=== PATIENT | female | born 1970 | race Caucasian/White ===

== ENCOUNTER 2019-05-13 12:27 | Inpatient (IN) | payer BC, SELFPAY ==
[2019-05-13] VITALS (22 sets, daily range): BP systolic 100–137; BP diastolic 47–70; PULSE 80–100; RESP 14–20; TEMP 36.2–37.2; O2SAT 98–100
--- NOTE | ~2019-05-13 | XR_ITS ---
XR chest 1V portable DATE: 05/13/2019 14:12 INDICATION: Shortness of breath TECHNIQUE: Portable upright AP chest on 05/13/2019 at 1413 hours COMPARISON: 03/17/2017 two-view chest FINDINGS: Borderline or mild cardiomegaly is suggested. There is a hiatal hernia with air-fluid level . No pulmonary infiltrate or consolidation, pleural effusion or pulmonary vascular congestion or pneumo thorax. IMPRESSION: Borderline or mild cardiac megaly Hiatal hernia No active pulmonary disease Reviewed, dictated and finalized at location A. COUNSELOR
--- NOTE | 2019-05-13 12:38 | ED.RECABL ---
HPI - Recheck/Abnormal Lab/Rx General Chief Complaint: Recheck/Abnormal Lab/Rx Stated Complaint: sent by doctor for an iron shot Time Seen by Provider: 05/13/19 12:38 Source: patient Mode of arrival: ambulatory Limitations: no limitations History of Present Illness HPI narrative: A 48 y/o female presents to the ED with c/o low iron levels. Pt states she has been experiencing generalized weakness and SOB for 1 week. Pt originally thought that her symptoms were due to her PMHx of asthma but notes that she did not have a cough or wheeze. Pt went to see her PCP yesterday and was told that she was anemic with an iron count of 15. Pt was advised to get an iron shot . Pt notes that her periods are normally light. She denies CP, blood in her stool, N/V, ABD pain, BLE edema, a PMHx of heart problems, and a PSHx. Description of abnormal result: low iron levels Associated symptoms: shortness of breath and other (generalized weakness) Related Data Home Medications Medication Instructions Recorded Confirmed albuterol sulfate [ProAir HFA] 1 inh INHALATION QID PRN 05/13/19 05/13/19 fluoxetine [Prozac] 40 mg PO DAILY 05/13/19 05/13/19 Allergies Allergy/AdvReac Type Severity Reaction Status Date / Time albuterol Allergy Mild Hives / Verified 05/24/18 19:03 Red Face Review of Systems Review of Systems: All systems reviewed & are unremarkable except as noted in HPI and below Constitutional: Constitutional: Reports weakness (generalized) Comments: Reports: low iron levels Cardiovascular: Cardiovascular: Denies chest pain Respiratory: Respiratory: Denies cough, Reports dyspnea and Denies wheezing Gastrointestinal: Gastrointestinal: Denies abdominal pain, Denies nausea and Denies vomiting Comments: Denies: blood in stool Musculoskeletal: Comments: Denies: BLE edema PMFSH Past Medical History Medical History (Updated 05/13/19 @ 15:37 by Kristina Prakash PA-C) Asthma Bipolar disorder Depression GERD (gastroesophageal reflux disease) Family History Family History (Updated 05/13/19 @ 16:11 by Sunitha Frances RN) Mother High cholesterol Social History Social History (Updated 05/13/19 @ 15:32 by Kristina Prakash PA-C) Social History: The patient is lives with her in [place]. She designates her , Ankit, as her surrogate decision maker and she wishes to be a full code. She is a lifelong nonsmoker and denies alcohol and drug abuse. Smoking status: Never smoker Alcohol intake: never Substance use: never Substance use type: does not use Gender identity (if verbalized by the patient): Female Spiritual care concerns: No Agree to blood products: Yes Comments PCP: Dr. Montejo Exam Narrative: Exam Narrative: GENERAL: Well-appearing, well-nourished, and in no acute distress. HEAD: Normocephalic, atraumatic EYES: PERRLA and EOMI, THROAT:Mucous membranes moist, Oropharynx normal without erythema, exudate, peritonsillar swelling or fluctuance NECK: Supple, without lymphadenopathy or mass RESPIRATORY: No respiratory distress, Airway patent, Respirations non-labored, Clear to auscultation without rales, rhonchi or wheeze HEART: Regular rate and rhythm. No murmur heard. Normal peripheral pulses. ABDOMEN: Soft, nontender, nondistended, normal active bowel sounds. No masses. No rebound or guarding, No organomegaly. EXTREMITIES: No edema, normal strength with full range of motion. SKIN: Warm, dry, pale skin NEURO: Alert and oriented x3. CN 2-12 grossly intact. No focal deficits. PSYCH: Normal mood and affect. GI: Rectal Exam: heme positive stool (brown stool) and No External hemorrhoid(s) present Course Reevaluation(s) Reevaluation #1: I have discussed with patient that she will need to be admitted with hemoglobin of 3.9 . She denies history of anemia. On review of her records in 2018 her hemoglobin was 7.2. Date: 05/13/19 Time: 14:23 Consultations Consultation #1:
--- NOTE | 2019-05-13 12:46 | ECG_ITS ---
Measurements Intervals [place] Rate: 109 P: 9 [place]: 147 QRS: -11 QRSD: 90 T: 61 QT: 345 QTc: 465 Interpretive Statements SINUS TACHYCARDIA DELAYED PRECORDIAL R/S TRANSITION VOLTAGE CRITERIA FOR LVH BORDERLINE ST-T WAVE ABNORMALITY- DIFFUSE LEADS BASELINE ARTIFACT- I, II, III, AVR, AVL, AVF, V1 ABNORMAL ECG Electronically Signed On 05-13-2019 13:40:40 [employer] by Chaitanya Son D.O.
[2019-05-13 13:19] LABS: Basophils Percent Auto 0.5 % (0.2-1.2); Eosinophils Absolute Auto 0.1 K/mm3 (0-0.3); Eosinophils Percent Auto 1.5 % (0-4.4); Immature Granulocyte Absolute 0.03 K/mm3 (0.00-0.031); Immature Granulocyte Percent A 0.5 % (0-0.5); Lymphocytes Absolute Auto 1.44 K/mm3 (0.9-3.2); Lymphocytes Percent Auto 24.5 % (18.3-44.2); Mean Corpuscular HGB Conc 24.1 g/dl (32-36); Mean Corpuscular Hemoglobin 14.4 pg (26-34); Mean Platelet Volume 9.5 fl (7.4-10.4); Monocytes Absolute Auto 0.4 K/mm3 (0.1-0.6); Neutrophils Absolute Auto 3.9 K/mm3 (1.3-6.7); Platelet Count Result 846 k/mm3 (150-375); Red Cell Distribution Width 22.5 % (11.5-14.5); White Blood Count 5.9 K/mm3 (4.5-10.0)
[2019-05-13 13:25] LABS: Hematocrit 16.2 % (37.0-47.0); Hemoglobin 3.9 g/dL (12.0-15.0); Platelet Estimate Increased (Adequate)
[2019-05-13 13:26] LABS: Hypochromasia 3+ (NORMAL); Ovalocytes 2+ (NORMAL); Poikilocytosis 2+ (NORMAL); Stomatocytes 2+ (NORMAL)
[2019-05-13 13:32] LABS: Alanine Aminotransferase 9 U/L (4-35); Albumin Level 3.8 g/dL (3.5-5.1); Alkaline Phosphatase 65 U/L (38-126); Aspartate Amino Transferase 13 U/L (14-36); Bilirubin,Total 0.4 mg/dL (0.2-1.3); Blood Urea Nitrogen 13 mg/dL (7-17); Calcium 8.7 mg/dL (8.4-10.2); Carbon Dioxide 25 mmol/L (22-30); Chloride 99 mmol/L (98-107); Estimated CRCL calculation 126 ml/min; Estimated Glomerular Filt Rate > 60; Glucose 135 mg/dL (65-105); Potassium 3.3 mmol/L (3.4-5.0); Sodium 136 mmol/L (137-145)
[2019-05-13 13:33] LABS: D Dimer 0.38 ug/mL (<0.48)
[2019-05-13 13:43] LABS: Iron < 10 ug/dL (37-170)
[2019-05-13 13:44] LABS: NT Pro B Type Natriuretic Pept 331 PG/ML (5-100); Troponin I < 0.012 ng/mL (0.000-0.034)
[2019-05-13 13:54] LABS: Prothrombin Time 13.2 Seconds (11.1-14.7)
[2019-05-13 14:21] LABS: Ferritin 2.79 ng/mL (6.24-137)
[2019-05-13] MEDS: SODIUM CHLORIDE 0.9% IV 250 ML 30 ML IV CONT (14:44)
[2019-05-13 14:49] LABS: Folic Acid 7.3 ng/mL (2.76->20)
[2019-05-13] MEDS: BISACODYL 5 MG TABLET EC 20 MG PO (15:16)
--- NOTE | 2019-05-13 15:30 | PM.IMHP ---
H&P: HPI History of Present Illness Chief complaint: Low iron levels. Narrative: Evelina Acevedo is a 48 year old female with asthma, GERD, and bipolar disorder who presented to the emergency department earlier this afternoon at the direction of her primary care provider for further treatment and evaluation of ?low iron levels.? 1 week ago she was walking from a parking lot to the theater and noticed that she was unusually short of breath. Initially she thought perhaps her asthma was acting up. Since that time she has been progressively more short of breath with increasing for due to and generalized weakness. She has also had some lightheadedness and nausea. She was seen by her primary care provider yesterday, was told she was anemic, and was referred to the emergency department. Hemoglobin and hematocrit were 3.9 and 16.2 respectively. With further questioning, she was told that she was anemic about a year and half ago and was prescribed iron. It caused her stomach to be upset, and she was supposed to then be taking flintstone vitamins with iron but she has not done so. She has not noticed any change in stools and specifically denies melena and hematochezia. No gingival bleeding or epistaxis. She does suffer from GERD, but has not noticed a change in her symptomatology. She admits to drinking quite a bit of Mountain Dew each day. She also takes ibuprofen, 400 milligrams 1 time a day for headaches. No alcohol use. she is not being in our vegetarian, but did stop eating red meat 1 year ago. Review of Systems Review of Systems: Narrative: Twelve systems were reviewed with pertinent positives and negatives as per HPI. No fever, chills, or sweats. No cold or flu symptoms. No chest pain or racing heart. She has had a mild cough. No significant problems with her asthma, however. No vomiting. Except as documented, all other systems were reviewed and are negative. [facility] Past Medical History Medical History (Updated 05/13/19 @ 23:54 by Kristina Prakash PA-C) Asthma Bipolar disorder Depression GERD (gastroesophageal reflux disease) Surgical History Surgical History (Updated 05/13/19 @ 23:30 by Kristina Prakash PA-C) No history of previous surgery Family History Family History Mother High cholesterol Social History Social History (Updated 05/13/19 @ 15:32 by Kristina Prakash PA-C) Social History: The patient is lives with her in [place]. She designates her , Ankit, as her surrogate decision maker and she wishes to be a full code. She is a lifelong nonsmoker and denies alcohol and drug abuse. Smoking status: Never smoker Alcohol intake: never Substance use: never Substance use type: does not use Gender identity (if verbalized by the patient): Female Spiritual care concerns: No Agree to blood products: Yes Meds Home Medications and Allergies Home Medications Medication Instructions Recorded Confirmed Type albuterol sulfate [ProAir HFA] 1 inh INHALATION QID PRN 05/13/19 05/13/19 History fluoxetine [Prozac] 40 mg PO DAILY 05/13/19 05/13/19 History Allergies Allergy/AdvReac Type Severity Reaction Status Date / Time albuterol Allergy Mild Hives / Verified 05/24/18 19:03 Red Face Vital Signs Vital Signs - 24 hr 05/13/19 12:30 05/13/19 12:54 05/13/19 13:37 Temperature 97.3 F L Pulse Rate 100 90 92 Respiratory Rate 16 20 Blood Pressure 137/56 L 104/58 L 109/56 L Pulse Oximetry 100 100 05/13/19 14:15 05/13/19 14:44 05/13/19 14:48 Temperature 97.4 F L Pulse Rate 92 82 86 Respiratory Rate 20 18 17 Blood Pressure 100/64 100/64 Pulse Oximetry 100 100 98 05/13/19 14:59 05/13/19 15:10 Temperature 97.1 F L Pulse Rate 97 86 Respiratory Rate 20 19 Blood Pressure 106/63 103/66 Pulse Oximetry 100 100 Exam Narrative: Exam Narrative: General: A well-developed, well
--- NOTE | 2019-05-13 15:57 | ADMGEN ---
This patient, Evelina Acevedo, was admitted to Medical Room 348-01. Patient/family oriented to hospital policies and general routines including ID bracelet, bed and alarms, visiting hours, pain management, procedures, bathroom and other care routines, personal items, smoking policy, room service/diet, and visiting hours. Valuables list has been completed. Information on how to activate the Rapid Response Team has been discussed. Patient/Family are encouraged to report perceived risks to care and to ask questions if they do not understand what they are told or what they should do. 1530 Received from ER via stretcher.Family at bedside.
[2019-05-13] MEDS: PEG (High)/E-LYTE SOLN 4,000 ML BTL 4000 ML PO (16:53)
[2019-05-13] MEDS: TUBING, BLOOD PLUM PUMP TUBING 1 EACH XX (18:00)
[2019-05-13] MEDS: SODIUM CHLORIDE 0.9% IV 250 ML 30 ML (18:00)
[2019-05-13] MEDS: ONDANSETRON INJ 4 MG/2 ML VIAL IV PUSH (21:39)
[2019-05-13] MEDS: PANTOPRAZOLE SODIUM IV 40 MG VIAL IV PUSH (21:58)
[2019-05-14] VITALS (21 sets, daily range): BP systolic 95–134; BP diastolic 42–65; PULSE 69–87; RESP 13–25; TEMP 36.3–36.9; O2SAT 94–100
[2019-05-14] MEDS: ONDANSETRON INJ 4 MG/2 ML VIAL IV PUSH ×2 (01:39→09:30)
[2019-05-14 06:29] LABS: Basophils Percent Auto 0.4 % (0.2-1.2); Eosinophils Percent Auto 0.3 % (0-4.4); Hematocrit 27.3 % (37.0-47.0); Immature Granulocyte Absolute 0.04 K/mm3 (0.00-0.031); Immature Granulocyte Percent A 0.4 % (0-0.5); Lymphocytes Absolute Auto 1.75 K/mm3 (0.9-3.2); Lymphocytes Percent Auto 18.9 % (18.3-44.2); Mean Corpuscular HGB Conc 29.3 g/dl (32-36); Mean Corpuscular Hemoglobin 20.4 pg (26-34); Mean Corpuscular Volume 69.6 fl (80-100); Mean Platelet Volume 9.8 fl (7.4-10.4); Monocytes Absolute Auto 0.6 K/mm3 (0.1-0.6); Monocytes Percent Auto 6.4 % (2.6-8.5); Neutrophils Absolute Auto 6.8 K/mm3 (1.3-6.7); Neutrophils Percent Auto 73.6 % (45.5-73.1); Platelet Count Result 731 k/mm3 (150-375); Red Blood Count 3.92 M/mm3 (4.2-5.4); Red Cell Distribution Width 27.8 % (11.5-14.5); White Blood Count 9.3 K/mm3 (4.5-10.0)
[2019-05-14 06:45] LABS: Alanine Aminotransferase 8 U/L (4-35); Albumin Level 3.9 g/dL (3.5-5.1); Alkaline Phosphatase 67 U/L (38-126); Aspartate Amino Transferase 13 U/L (14-36); Bilirubin,Total 1.2 mg/dL (0.2-1.3); Blood Urea Nitrogen 9 mg/dL (7-17); Calcium 8.9 mg/dL (8.4-10.2); Carbon Dioxide 26 mmol/L (22-30); Chloride 101 mmol/L (98-107); Estimated CRCL calculation 107 ml/min; Estimated Glomerular Filt Rate > 60; Glucose 96 mg/dL (65-105); Potassium 3.3 mmol/L (3.4-5.0); Sodium 137 mmol/L (137-145)
[2019-05-14 07:16] LABS: Platelet Estimate Increased (Adequate)
[2019-05-14 07:17] LABS: Hypochromasia 2+ (NORMAL); Ovalocytes 2+ (NORMAL); Poikilocytosis 2+ (NORMAL)
[2019-05-14] MEDS: FOLIC ACID 1 MG/0.2 ML INJ IV PUSH (09:12)
[2019-05-14] MEDS: CYANOCOBALAMIN INJ 1,000 MCG/ML VIAL 1000 MCG IM (09:12)
[2019-05-14] MEDS: PANTOPRAZOLE SODIUM IV 40 MG VIAL IV PUSH ×2 (09:13→20:59)
[2019-05-14] MEDS: FLUOXETINE HCL 20 MG CAP 40 MG PO (09:13)
--- NOTE | 2019-05-14 09:55 | WPDGICN ---
Assessment and Plan Assessment and plan (1) Iron deficiency anemia: Qualifiers: Iron deficiency anemia type: unspecified iron deficiency Qualified Code(s): D50.9 - Iron deficiency anemia, unspecified Code(s): D50.9 - Iron deficiency anemia, unspecified Status: Acute Assessment and Plan: will proceed with egd and colonoscopy to assess if gi loss. (2) Profound anemia: Qualifiers: Anemia type: iron deficiency Iron deficiency anemia type: other iron deficiency Qualified Code(s): D50.8 - Other iron deficiency anemias Code(s): D64.9 - Anemia, unspecified Status: Acute Assessment and Plan: she already got blood transfusion, continue to monitor (3) Stool guaiac positive: Code(s): R19.5 - Other fecal abnormalities Status: Acute (4) Asthma: Qualifiers: Asthma complication type: uncomplicated Asthma persistence: unspecified Asthma severity: unspecified severity Qualified Code(s): J45.909 - Unspecified asthma, uncomplicated Code(s): J45.909 - Unspecified asthma, uncomplicated Status: Acute (5) Thrombocytosis: Code(s): D47.3 - Essential (hemorrhagic) thrombocythemia Status: Acute GI Consult Note Consult date/time: 05/14/19 09:55 reason for consult: iron deficiency anemia with + FOBT HPI: Evelina Acevedo is a 48 year old female with history of asthma, GERD, and bipolar disorder who presented to the emergency department because symptomatic anemia with more fatigue, progressive shortness of breath on exertion for several weeks. Her PCP found her to be severely anemic with Hemoglobin and hematocrit 3.9 and 16.2 respectively. She was told that was anemic about 1 year ago and supposed to be on iron/vitamins. Never had scopes, denies overt-GIB, heavy cycles. Occasionally will use ibuprofen only as needed if headaches. No weight loss, no family history of colon cancer. She received 4 units of PRBC and completed bowel prep last night. Review of Systems Constitutional: Constitutional: Reports fatigue and Reports lethargy Eyes: Eyes: Denies blurry vision ENT: Reports Normal hearing present, Denies headache(s) and Denies neck pain Cardiovascular: Cardiovascular: Denies chest pain and Denies dyspnea Respiratory: Respiratory: Denies dyspnea Gastrointestinal: Gastrointestinal: Reports no additional gastrointestinal complaints Genitourinary: Genitourinary: Denies dysuria Musculoskeletal: Musculoskeletal: Denies neck pain Integumentary/Breasts: Skin/Breast: Denies dry skin Neurologic: Reports Normal hearing present, Denies headache(s) and Denies weakness Psychiatric: Psychiatric: Denies anxiety Endocrine: Endocrine: Denies change in body appearance Hematologic/Lymphatic: Hematologic/Lymphatic: Denies easy bleeding Allergic/Immunologic: Allergic/Immunologic: Denies urticaria PMFSH Past Medical History Medical History (Updated 05/14/19 @ 10:00 by Haile Pandey MD) Asthma Bipolar disorder Depression GERD (gastroesophageal reflux disease) Iron deficiency anemia Surgical History Surgical History (Updated 05/13/19 @ 23:30 by Kristina Prakash PA-C) No history of previous surgery Family History Family History Mother High cholesterol Social History Social History (Updated 05/13/19 @ 15:32 by Kristina Prakash PA-C) Social History: The patient is lives with her in [place]. She designates her , Ankit, as her surrogate decision maker and she wishes to be a full code. She is a lifelong nonsmoker and denies alcohol and drug abuse. Smoking status: Never smoker Alcohol intake: never Substance use: never Substance use type: does not use Gender identity (if verbalized by the patient): Female Spiritual care concerns: No Agree to blood products: Yes Meds Home Medications and Allergies
[2019-05-14] MEDS: KCL 40 MEQ/0.9% SOD CHL 1,000 ML 125 ML IV CONT ×2 (11:01→23:02)
[2019-05-14 12:11] LABS: Hematocrit 25.9 % (37.0-47.0); Hemoglobin 7.5 g/dL (12.0-15.0)
[2019-05-14 12:24] LABS: Blood Urea Nitrogen 9 mg/dL (7-17); Calcium 8.6 mg/dL (8.4-10.2); Carbon Dioxide 24 mmol/L (22-30); Chloride 102 mmol/L (98-107); Estimated CRCL calculation 126 ml/min; Estimated Glomerular Filt Rate > 60; Glucose 99 mg/dL (65-105); Potassium 3.5 mmol/L (3.4-5.0); Sodium 135 mmol/L (137-145)
--- NOTE | 2019-05-14 13:14 | PM.IMPN ---
Progress Note: A&P Assessment and Plan (1) Profound anemia: Qualifiers: Anemia type: iron deficiency Iron deficiency anemia type: other iron deficiency Qualified Code(s): D50.8 - Other iron deficiency anemias Code(s): D64.9 - Anemia, unspecified Status: Acute Assessment and Plan: Chronic is evidence by tolerance of hemoglobin 3.9, microcytosis, and thrombocytosis. With heme-positive stools most likely she has chronic blood loss Her menstrual periods are very light so this is likely contributing minimally EGD and colonoscopy later today Monitor hemoglobin hematocrit (2) Thrombocytosis: Code(s): D47.3 - Essential (hemorrhagic) thrombocythemia Status: Acute Assessment and Plan: Most likely reactive thrombocytosis from significant iron deficiency. (3) Hypokalemia: Code(s): E87.6 - Hypokalemia Status: Acute Assessment and Plan: 05/14 3.5 (4) Asthma: Qualifiers: Asthma severity: unspecified severity Asthma persistence: unspecified Asthma complication type: uncomplicated Qualified Code(s): J45.909 - Unspecified asthma, uncomplicated Code(s): J45.909 - Unspecified asthma, uncomplicated Status: Acute Assessment and Plan: No acute issues. (5) B12 deficiency: Code(s): E53.8 - Deficiency of other specified B group vitamins Status: Acute Assessment and Plan: 05/14 cyanocobalamin 1000 micro g IM x1 given 05/14 folic acid 1 mg IV x1 given (6) Iron deficiency anemia: Qualifiers: Iron deficiency anemia type: unspecified iron deficiency Qualified Code(s): D50.9 - Iron deficiency anemia, unspecified Code(s): D50.9 - Iron deficiency anemia, unspecified Status: Acute Assessment and Plan: Likely due to chronic blood loss from gastrointestinal tract and from menses Given her B12 deficiency, iron malabsorption may also be contributing 05/13 4 units packed red cells given 05/14 300 mg IV iron sucrose given Subjective Date/time seen: 05/14/19 13:14 Interval history: Admitted May 13 with fatigue and dyspnea. Found to be profoundly anemic with hemoglobin 3.9. She tolerated 4 units of packed red cells overnight. No chest pain no dyspnea. No edema. No nausea or vomiting. No abdominal pain. No GI or changes. No fevers or chills. No itching or rash. Review of Systems Review of Systems: All systems reviewed & are unremarkable except as noted in HPI and below Exam Narrative: Exam Narrative: HEENT: EOMI, PERRL, pharyngeal mucosa pink and intact NECK: No JVD CHEST: Clear to auscultation. Normal effort. HEART: NL S1/S2, regular, no murmur ABDOMEN: BS+, soft, nontender, no mass, no bruits EXTREMITIES: No cyanosis, edema, or clubbing NEUROLOGIC: CN intact and symmetric to inspection. MUSCULOSKELETAL: Tone and strength symmetric. PSYCH: Alert. Oriented to person, place, and time. And Objective Data Vital Signs Vital Signs: Vital Signs - 24 hr 05/13/19 13:37 05/13/19 14:15 05/13/19 14:44 Temperature 97.4 F L Pulse Rate 92 92 82 Respiratory Rate 20 20 18 Blood Pressure 109/56 L 100/64 Pulse Oximetry 100 100 100 05/13/19 14:48 05/13/19 14:59 05/13/19 15:10 Temperature 97.1 F L Pulse Rate 86 97 86 Respiratory Rate 17 20 19 Blood Pressure 100/64 106/63 103/66 Pulse Oximetry 98 100 100 05/13/19 15:46 05/13/19 15:59 05/13/19 16:00 Temperature 98.2 F Pulse Rate 89 92 93 Respiratory Rate 16 Blood Pressure 105/58 L Pulse Oximetry 100 05/13/19 16:18 05/13/19 16:30 05/13/19 18:00 Temperature 98.2 F 98.9 F Pulse Rate 93 92 96 Respiratory Rate 18 16 16 Blood Pressure 105/58 L 121/57 L Pulse Oximetry 100 100 99 05/13/19 18:15 05/13/19 19:15 05/13/19 20:00 Temperature 98.9 F 98.7 F Pulse Rate 93 95 86 Respiratory Rate 16 16 Blood Pressure 101/51 L 104/60 Pulse Oximetry 99 100 05/13/19 20:15 04/19
[2019-05-14] MEDS: LACTATED RINGERS 1,000 ML 150 ML IV CONT (14:20)
--- NOTE | 2019-05-14 14:20 | PC.NURSE ---
Patient to GI lab per stretcher.
--- NOTE | 2019-05-14 14:26 | WPDANESEPPF ---
Anes - Initial Pre Proc Eval Procedure: Operation Date: 05/14/19 15:00 Proposed Procedures p Esophagogastroduodenoscopy & Colonoscopy - Haile Pandey MD Date/Time: 05/14/19 14:26 Surgeon: Bi Helton MD Pre Op Diagnosis: Low iron levels. Patient Data Age: 48 Gender: F Height: 5 ft 3 in Weight: 91.6 kg Last Vital Signs Temp 36.9 C 05/14/19 14:16 Pulse 87 05/14/19 14:15 Resp 13 05/14/19 14:16 BP 119/50 L 05/14/19 14:16 Pulse Ox 96 05/14/19 14:16 Allergies Allergy/AdvReac Type Severity Reaction Status Date / Time albuterol Allergy Mild Hives / Verified 05/24/18 19:03 Red Face Home Medications Medication Instructions Recorded Confirmed Type albuterol sulfate [ProAir HFA] 1 inh INHALATION QID PRN 05/13/19 05/13/19 History fluoxetine [Prozac] 40 mg PO DAILY 05/13/19 05/13/19 History Laboratory Tests 05/13/19 05/13/19 05/14/19 12:52 12:54 05:42 WBC 9.3 K/mm3 K/mm3 (4.5-10.0) RBC 3.92 M/mm3 L M/mm3 (4.2-5.4) Hgb 8.0 g/dL L D g/dL (12.0-15.0) Hct 27.3 % L % (37.0-47.0) MCV 69.6 fl L D fl (80-100) MCH 20.4 pg L D pg (26-34) MCHC 29.3 g/dl L g/dl (32-36) RDW 27.8 % H % (11.5-14.5) Plt Count 731 k/mm3 H k/mm3 (150-375) MPV 9.8 fl fl (7.4-10.4) Immature Gran % (Auto) 0.4 % % (0-0.5) Neut % (Auto) 73.6 % H % (45.5-73.1) Lymph % (Auto) 18.9 % % (18.3-44.2) [place] % (Auto) 6.4 % % (2.6-8.5) Eos % (Auto) 0.3 % % (0-4.4) Baso % (Auto) 0.4 % % (0.2-1.2) Lymph # (Auto) 1.75 K/mm3 K/mm3 (0.9-3.2) [place] # (Auto) 0.6 K/mm3 K/mm3 (0.1-0.6) Eos # (Auto) 0.0 K/mm3 K/mm3 (0-0.3) Baso # (Auto) 0.0 K/mm3 K/mm3 (0.0-0.1) Abs Immat Gran (auto) 0.04 K/mm3 H K/mm3 (0.00-0.031) Absolute Neuts (auto) 6.8 K/mm3 H K/mm3 (1.3-6.7) Absolute Nucleated RBC 0.0 K/mm3 K/mm3 (0.0-0.012) Nucleated RBC % 0.0 % % (0.0-0.2) Platelet Estimate Increased (Adequate) Hypochromasia 2+ (NORMAL) Poikilocytosis 2+ (NORMAL) Ovalocytes 2+ (NORMAL) Sodium Potassium Chloride Carbon Dioxide BUN Creatinine Estim Creat Clear Calc Estimated GFR Glucose Calcium Total Bilirubin AST ALT Alkaline Phosphatase Total Protein Albumin Vitamin B12 234.0 pg/mL L pg/mL (239-931) Folate 7.3 ng/mL ng/mL (2.76->20) Blood Type A Positive Antibody Screen Negative Crossmatch See Detail 05/14/19 05/14/19 05/14/19 05:42 11:51 11:51 WBC RBC Hgb 7.5 g/dL L g/dL (12.0-15.0) Hct 25.9 % L % (37.0-47.0) MCV MCH MCHC RDW Plt Count MPV Immature Gran % (Auto) Neut % (Auto) Lymph % (Auto) [place] % (Auto) Eos % (Auto) Baso % (Auto) Lymph # (Auto) [place] # (Auto) Eos # (Auto) Baso # (Auto) Abs Immat Gran (auto) Absolute Neuts (auto) Absolute Nucleated RBC Nucleated RBC % Platelet Estimate Hypochromasia Poikilocytosis Ovalocytes Sodium 137 mmol/L mmol/L 135 mmol/L L mmol/L (137-145) (137-145) Potassium 3.3 mmol/L L mmol/L 3.5 mmol/L mmol/L (3.4-5.0) (3.4-5.0) Chloride 101 mmol/L mmol/L 102 mmol/L mmol/L (98-107) (98-107) Carbon Dioxide 26 mmol/L mmol/L 24 mmol/L mmol/L (22-30)
--- NOTE | 2019-05-14 15:41 | PC.NURSE ---
Patient returned from GI lab per stretcher. Family at bedside.
[2019-05-14 17:57] LABS: Hematocrit 27.6 % (37.0-47.0); Hemoglobin 7.9 g/dL (12.0-15.0)
[2019-05-14 18:12] LABS: Blood Urea Nitrogen 9 mg/dL (7-17); Calcium 8.7 mg/dL (8.4-10.2); Carbon Dioxide 24 mmol/L (22-30); Chloride 101 mmol/L (98-107); Estimated CRCL calculation 107 ml/min; Estimated Glomerular Filt Rate > 60; Glucose 142 mg/dL (65-105); Potassium 3.4 mmol/L (3.4-5.0); Sodium 136 mmol/L (137-145)
[2019-05-15] VITALS: PULSE 81
[2019-05-15 04:00] VITALS: PULSE 79
[2019-05-15 04:27] VITALS: BP 117/46; PULSE 76; RESP 12; TEMP 36.3; O2SAT 94
[2019-05-15 06:10] LABS: Hemoglobin 7.1 g/dL (12.0-15.0); Mean Corpuscular HGB Conc 28.4 g/dl (32-36); Mean Corpuscular Hemoglobin 20.1 pg (26-34); Mean Corpuscular Volume 70.6 fl (80-100); Mean Platelet Volume 9.7 fl (7.4-10.4); Platelet Count Result 576 k/mm3 (150-375); Red Blood Count 3.54 M/mm3 (4.2-5.4); Red Cell Distribution Width 27.9 % (11.5-14.5); White Blood Count 8.5 K/mm3 (4.5-10.0)
[2019-05-15 06:14] LABS: Blood Urea Nitrogen 11 mg/dL (7-17); Calcium 8.3 mg/dL (8.4-10.2); Carbon Dioxide 24 mmol/L (22-30); Chloride 108 mmol/L (98-107); Estimated CRCL calculation 107 ml/min; Estimated Glomerular Filt Rate > 60; Glucose 91 mg/dL (65-105); Sodium 139 mmol/L (137-145)
[2019-05-15] MEDS: KCL 40 MEQ/0.9% SOD CHL 1,000 ML 125 ML IV CONT (07:09)
[2019-05-15 08:00] VITALS: PULSE 71; O2SAT 94
[2019-05-15] MEDS: FLUOXETINE HCL 20 MG CAP 40 MG PO (08:59)
[2019-05-15] MEDS: PANTOPRAZOLE SODIUM IV 40 MG VIAL IV PUSH (09:00)
[2019-05-15 09:38] LABS: Percent Iron Saturation < 2 % (20-50)
[2019-05-15 12:00] VITALS: PULSE 82
[2019-05-15 14:16] VITALS: BP 123/71; PULSE 79; RESP 18; TEMP 36.7; O2SAT 96
--- NOTE | 2019-05-15 18:27 | PM.DS ---
DS: Diagnosis Admitting Diagnosis Admitting Diagnosis: Anemia, unspecified Discharge Diagnosis (1) Profound anemia: Qualifiers: Anemia type: iron deficiency Iron deficiency anemia type: other iron deficiency Qualified Code(s): D50.8 - Other iron deficiency anemias Code(s): D64.9 - Anemia, unspecified Status: Acute Assessment and Plan: Chronic is evidence by tolerance of hemoglobin 3.9, microcytosis, and thrombocytosis. With heme-positive stools most likely she has chronic blood loss Her menstrual periods are very light so this is likely contributing minimally EGD and colonoscopy revealed only gastritis with no active bleeding, will discharge on PPI Monitor hemoglobin hematocrit (2) Thrombocytosis: Code(s): D47.3 - Essential (hemorrhagic) thrombocythemia Status: Acute Assessment and Plan: Most likely reactive thrombocytosis from significant iron deficiency. (3) Hypokalemia: Code(s): E87.6 - Hypokalemia Status: Acute Assessment and Plan: 05/14 3.5 05/15 4.0 (4) Asthma: Qualifiers: Asthma severity: unspecified severity Asthma persistence: unspecified Asthma complication type: uncomplicated Qualified Code(s): J45.909 - Unspecified asthma, uncomplicated Code(s): J45.909 - Unspecified asthma, uncomplicated Status: Acute Assessment and Plan: No acute issues. (5) B12 deficiency: Code(s): E53.8 - Deficiency of other specified B group vitamins Status: Acute Assessment and Plan: 05/14 cyanocobalamin 1000 micro g IM x1 given 05/14 folic acid 1 mg IV x1 given (6) Iron deficiency anemia: Qualifiers: Iron deficiency anemia type: unspecified iron deficiency Qualified Code(s): D50.9 - Iron deficiency anemia, unspecified Code(s): D50.9 - Iron deficiency anemia, unspecified Status: Acute Assessment and Plan: Likely due to chronic blood loss from gastrointestinal tract and from menses Given her B12 deficiency, iron malabsorption may also be contributing(results to what no biopsy pending and discharge) 05/13 4 units packed red cells given 05/14 300 mg IV iron sucrose given 05/15 300 mg IV again for a total of 600 mg DS: Summary Hospital Course Hospital Course: 48-year-old white female admitted with profound anemia. Found to be iron deficiency but EGD and colonoscopy revealed only gastritis. Transfuse 4 units of packed cells and discharged with a hemoglobin 7.1 to have CBC drawn in 6 days. Received IV iron 600 mg while here as well as B12 1000 micro g IM Will be discharged on PPI Protonix 40 b.i.d. Time Spent with Patient Time attestation: Total time spent providing and/or coordinating discharge services: 35 minutes Exam Narrative: Exam Narrative: Condition on discharge: Blood pressure 124/72 pulse is 80 Lungs clear CV regular rate rhythm Abdomen is soft nontender no masses Extremities without edema Const: General: no acute distress DS: Data Data Completed and Pending Pending studies at discharge: Pending at discharge 05/14/19 14:56 Surgical [PTH] Routine Labs on day of discharge: Labs from last 24 hours 05/15/19 05/15/19 05/13/19 05:36 05:36 12:52 WBC 8.5 RBC 3.54 L Hgb 7.1 L Hct 25.0 L MCV 70.6 L MCH 20.1 L MCHC 28.4 L RDW 27.9 H Plt Count 576 H MPV 9.7 Sodium 139 Potassium 4.0 Chloride 108 H Carbon Dioxide 24 BUN 11 Creatinine 0.60 L Estim Creat Clear Calc 107 Estimated GFR > 60 Glucose 91 Calcium 8.3 L % Saturation < 2 L Discharge Plan Discharge Attending physician on discharge: Rickey Reina Consulting providers: Haile Pandey Discharging Clinician: Rickey Reina Patient Disposition: Home, Self-Care Activity: as tolerated Diet: regular Discharge Instructions: RTW 05/16/19 Marisa
== END 2019-05-15 15:22 | disposition home or self-care (01) | DRG 379 ==
LOC: ANHED 15:12 → ANH3MED 23:20
PROVIDERS: Internal Medicine Gastroenterology; Admitting Provider Internal Medicine; Emergency Provider General Practice; PCP Family Medicine; Visit Provider Internal Medicine
PROC: 0DJ08ZZ Inspection of Upper Intestinal Tract, Via Natural or Artificial Opening Endoscopic (ICD-10-PCS; CPT 43235; principal; 2019-05-14 15:00)
DX: K29.51 Unspecified chronic gastritis with bleeding (principal); D50.0 Iron deficiency anemia secondary to blood loss (chronic); D51.9 Vitamin B12 deficiency anemia, unspecified; K44.9 Diaphragmatic hernia without obstruction or gangrene; K64.8 Other hemorrhoids; D47.3 Essential (hemorrhagic) thrombocythemia; E87.6 Hypokalemia; J45.909 Unspecified asthma, uncomplicated; D53.8 Other specified nutritional anemias; F31.9 Bipolar disorder, unspecified; K21.9 Gastro-esophageal reflux disease without esophagitis; E66.9 Obesity, unspecified; Z68.35 Body mass index [BMI] 35.0-35.9, adult
CPT/HCPCS: 36415; 36430; 71045; 80048; 80053; 81025; 82607; 82728; 82746; 83540; 83550; 83880; 84484; 85014; 85018; 85025; 85027; 85380; 85610; 85730; 86850; 86900; 86901; 86923; 87081; 88305; 93005; 96360; 99285; A9270; C9113; J1756; J2405; J2704; J3420; J7050; J7120; P9016

== ENCOUNTER 2019-05-24 11:27 | Outpatient (CLI) | payer BC, SELFPAY ==
[2019-05-24 11:57] LABS: Hematocrit 36.4 % (37.0-47.0); Hemoglobin 10.3 g/dL (12.0-15.0); Mean Corpuscular HGB Conc 28.3 g/dl (32-36); Mean Corpuscular Hemoglobin 21.7 pg (26-34); Mean Corpuscular Volume 76.6 fl (80-100); Mean Platelet Volume 9.6 fl (7.4-10.4); Platelet Count Result 467 k/mm3 (150-375); Red Blood Count 4.75 M/mm3 (4.2-5.4); White Blood Count 5.6 K/mm3 (4.5-10.0)
== END 2019-05-24 11:28 | disposition home or self-care (01) ==
LOC: ANHLAB 11:29
PROVIDERS: PCP Family Medicine; Visit Provider Family Medicine
DX: D64.9 Anemia, unspecified (principal)
CPT/HCPCS: 36415; 82728; 85027

== ENCOUNTER 2019-07-14 13:10 | Outpatient (CLI) | payer BC, SELFPAY ==
[2019-07-14 14:17] LABS: Hemoglobin 13.1 g/dL (12.0-15.0); Mean Corpuscular Hemoglobin 25.3 pg (26-34); Mean Corpuscular Volume 79.2 fl (80-100); Mean Platelet Volume 8.7 fl (7.4-10.4); Platelet Count Result 496 k/mm3 (150-375); Red Blood Count 5.18 M/mm3 (4.2-5.4); Red Cell Distribution Width 16.6 % (11.5-14.5); White Blood Count 6.8 K/mm3 (4.5-10.0)
[2019-07-14 15:23] LABS: Ferritin 8.72 ng/mL (6.24-137)
== END 2019-07-14 13:11 | disposition home or self-care (01) ==
PROVIDERS: PCP Family Medicine; Visit Provider Family Medicine
DX: D64.9 Anemia, unspecified (principal)
CPT/HCPCS: 36415; 82728; 85027

== ENCOUNTER 2019-09-11 13:03 | Outpatient (CLI) | payer BC, SELFPAY ==
[2019-09-11 13:31] LABS: Hematocrit 40.8 % (37.0-47.0); Hemoglobin 13.4 g/dL (12.0-15.0); Mean Corpuscular HGB Conc 32.8 g/dl (32-36); Mean Corpuscular Hemoglobin 27.3 pg (26-34); Mean Corpuscular Volume 83.3 fl (80-100); Platelet Count Result 455 k/mm3 (150-375); Red Cell Distribution Width 15.2 % (11.5-14.5); White Blood Count 8.2 K/mm3 (4.5-10.0)
[2019-09-11 13:52] LABS: Blood Urea Nitrogen 12 mg/dL (7-17); Calcium 8.9 mg/dL (8.4-10.2); Carbon Dioxide 28 mmol/L (22-30); Chloride 101 mmol/L (98-107); Estimated Glomerular Filt Rate > 60; Glucose 130 mg/dL (65-105); Potassium 3.6 mmol/L (3.4-5.0); Sodium 136 mmol/L (137-145)
== END 2019-09-11 13:04 | disposition home or self-care (01) ==
PROVIDERS: PCP Family Medicine; Visit Provider Family Medicine
DX: R42 Dizziness and giddiness (principal); D64.9 Anemia, unspecified
CPT/HCPCS: 36415; 80048; 84443; 85027

== ENCOUNTER 2020-02-23 12:55 | Outpatient (CLI) | payer BC, SELFPAY ==
[2020-02-23 13:15] LABS: Hematocrit 42.4 % (37.0-47.0); Hemoglobin 14.4 g/dL (12.0-15.0); Mean Corpuscular Hemoglobin 28.9 pg (26-34); Mean Corpuscular Volume 85.1 fl (80-100); Mean Platelet Volume 9.1 fl (7.4-10.4); Platelet Count Result 438 k/mm3 (150-375); Red Blood Count 4.98 M/mm3 (4.2-5.4); Red Cell Distribution Width 13.1 % (11.5-14.5); White Blood Count 8.7 K/mm3 (4.5-10.0)
[2020-02-23 13:29] LABS: Anion Gap 7 mmol/L (8-16); Blood Urea Nitrogen 13 mg/dL (7-17); Calcium 9.3 mg/dL (8.4-10.2); Carbon Dioxide 30 mmol/L (22-30); Chloride 101 mmol/L (98-107); Estimated Glomerular Filt Rate > 60; Glucose 141 mg/dL (65-105); Potassium 3.6 mmol/L (3.4-5.0); Sodium 138 mmol/L (137-145)
[2020-02-23 13:45] LABS: Beta HCG Quantitative < 2.39 mIU/ML
== END 2020-02-23 12:56 | disposition home or self-care (01) ==
PROVIDERS: PCP Family Medicine; Visit Provider Family Medicine
DX: N91.0 Primary amenorrhea (principal); D64.9 Anemia, unspecified; E87.1 Hypo-osmolality and hyponatremia
CPT/HCPCS: 36415; 80048; 84702; 85027

== ENCOUNTER 2020-04-22 14:11 | Emergency (ER) | payer BC, SELFPAY ==
[2020-04-22 14:27] VITALS: BP 139/81; PULSE 77; RESP 16; TEMP 37.4; O2SAT 99
--- NOTE | 2020-04-22 15:20 | ED.EXTPRO ---
HPI - Extremity Problem General Chief complaint: Extremity Problem,Nontraumatic Stated complaint: Foot Pain Time Seen by Provider: 04/22/20 15:06 Source: patient and RN notes reviewed Mode of arrival: ambulatory Limitations: no limitations History of Present Illness HPI Narrative: Patient presents today complaining of pain to the left foot x2 weeks. Denies any injury or trauma. Reports pain has been worsening since onset. States pain is worse at night. Currently rates her pain 6/10 and describes the pain as throbbing. Pain is worse with weightbearing. She has been taking Tylenol without relief. MD Complaint: extremity pain Related Data Home Medications Medication Instructions Recorded Confirmed fluoxetine [Prozac] 40 mg PO DAILY 05/13/19 04/22/20 Allergies Allergy/AdvReac Type Severity Reaction Status Date / Time albuterol Allergy Mild Hives / Verified 04/22/20 14:26 Red Face Review of Systems Review of Systems: Narrative: CONSTITUTIONAL: Denies body aches, fever, chills, or sweats. EYES: Denies visual changes, redness, or discharge. ENT: Denies rhinorrhea, congestion, sore throat, or otalgia. CARDIOVASCULAR: Denies chest pain, palpitations, or edema. RESPIRATORY: Denies cough or dyspnea. GASTROINTESTINAL: Denies abdominal pain, nausea, vomiting, or diarrhea. GENITOURINARY: Denies dysuria or hematuria. SKIN: Denies rash, itching, or wounds. MUSCULOSKELETAL: Denies back pain, or myalgia. +left foot pain NEUROLOGIC: Denies headache, numbness, tingling, or weakness. PSYCH: Denies depression or anxiety. [facility] Past Medical History Medical History (Updated 04/22/20 @ 15:26 by Regi Wu, [facility], ) Asthma Bipolar disorder Depression GERD (gastroesophageal reflux disease) Iron deficiency anemia Surgical History Surgical History No history of previous surgery Family History Family History Mother High cholesterol Social History Social History Social History: The patient is lives with her in [place]. She designates her , Ankit, as her surrogate decision maker and she wishes to be a full code. She is a lifelong nonsmoker and denies alcohol and drug abuse. Smoking status: Never smoker Alcohol intake: never Substance use: never Substance use type: does not use Gender identity (if verbalized by the patient): Female Spiritual care concerns: No Agree to blood products: Yes Comments At time of signature, I have reviewed and agree with nursing past medical, surgical, social and family history unless otherwise noted. Please see nursing chart for further information. There is no relevant family history pertinent to the presenting complaint Exam Narrative: Exam Narrative: GENERAL: Well-appearing, well-nourished, and in no acute distress. HEAD: Normocephalic, atraumatic. EYES: EOMI. No redness or drainage. Conjunctivae normal. ENT: Mucous membranes pink and moist. NECK: Normal AROM. CHEST: No respiratory distress. EXTREMITIES: left foot: patient localizes pain to the dorsum of the foot without edema, ecchymosis, or tenderness. Patient has tenderness to the plantar fascia with passive flexion of the foot. Distal sensation intact. Capillary refill normal. Pedal pulse normal. Full range of motion of the ankle and all toes. Color normal. SKIN: Warm, dry, no rash. Capillary refill normal. Normal skin turgor. NEURO: No focal deficits. Alert and oriented x3. Gait steady. PSYCH: Normal affect. No signs of depression or anxiety. Course Vital Signs Vital signs: Vital Signs Temperature 99.3 F 04/22/20 14:27 Pulse Rate 77 04/22/20 14:27 Respiratory Rate 16 04/22/20 14:27 Blood Pressure 139/81 04/22/20 14:27 Pulse Oximetry 99 04/22/20 14:27 Temperature
== END 2020-04-22 15:30 | disposition home or self-care (01) ==
PROVIDERS: Emergency Provider Nurse Practitioner
DX: M72.2 Plantar fascial fibromatosis (principal); J45.909 Unspecified asthma, uncomplicated; K21.9 Gastro-esophageal reflux disease without esophagitis; F32.9 Major depressive disorder, single episode, unspecified
CPT/HCPCS: 99213; G0463

== ENCOUNTER 2020-05-13 12:12 | Outpatient (CLI) | payer BC, SELFPAY ==
--- NOTE | ~2020-05-13 | XR_ITS ---
EXAMINATION: XR foot LT min 3V DATE: 05/13/2020 12:35 INDICATION: Left foot pain TECHNIQUE: Dorsoplantar, two oblique and lateral views of the left foot were obtained. COMPARISON: None. FINDINGS: Alignment is normal. No fracture. Polyarticular osteoarthritis, moderate severity at the lateral james cular cuneiform articulation and mild at multiple interphalangeal joints. Moderate-sized plantar calc aneal spur. Prominent dorsal osteophyte along the navicula. Likely left ankle joint effusion with inc reased density at the anterior recess of the joint space. IMPRESSION: 1. Polyarticular osteoarthritis, moderate at the naviculocuneiform and mild at multiple interphalange al joints. 2. Likely left ankle joint effusion. Reviewed, dictated and finalized at location B. [employer] IMPRESSION: 1. Polyarticular osteoarthritis, moderate at the naviculocuneiform and mild at multiple interphalangeal joints. 2. Likely left ankle joint effusion.
== END 2020-05-13 12:13 ==
PROVIDERS: PCP Family Medicine; Visit Provider Physician Assistant
DX: M79.672 Pain in left foot (principal); M19.072 Primary osteoarthritis, left ankle and foot; M25.472 Effusion, left ankle
CPT/HCPCS: 73630

== ENCOUNTER 2020-06-09 12:25 | Outpatient (CLI) | payer BC, SELFPAY ==
[2020-06-09 13:05] LABS: Hematocrit 43.1 % (37.0-47.0); Hemoglobin 14.3 g/dL (12.0-15.0); Mean Corpuscular HGB Conc 33.2 g/dl (32-36); Mean Corpuscular Volume 84.5 fl (80-100); Mean Platelet Volume 8.9 fl (7.4-10.4); Platelet Count Result 444 k/mm3 (150-375); Red Cell Distribution Width 13.1 % (11.5-14.5); White Blood Count 6.7 K/mm3 (4.5-10.0)
[2020-06-09 13:42] LABS: Iron 84 ug/dL (37-170)
[2020-06-09 13:51] LABS: Percent Iron Saturation 25 % (20-50)
== END 2020-06-09 12:26 | disposition home or self-care (01) ==
PROVIDERS: PCP Family Medicine; Visit Provider Physician Assistant
DX: D64.9 Anemia, unspecified (principal)
CPT/HCPCS: 36415; 83540; 83550; 85027

== ENCOUNTER 2020-09-13 16:11 | Emergency (ER) | payer BC, SELFPAY ==
[2020-09-13] VITALS (7 sets, daily range): BP systolic 111–143; BP diastolic 65–86; PULSE 82–94; RESP 20–23; TEMP 36.4; O2SAT 95–99
--- NOTE | ~2020-09-13 | XR_ITS ---
EXAMINATION: XR chest 2V 09/13/2020 17:40 INDICATION: Middle anterior chest pressure. Dry cough. Asthma. PROCEDURE: 2 view chest COMPARISON: Comparison to multiple prior studies sequentially, with oldest reviewed study dated 06/03. FINDINGS: The lungs are clear. The cardiomediastinal silhouette is within normal limits. There are no pleural effusions. There is no pneumothorax suspected. Large hiatal hernia. IMPRESSION: 1: No acute cardiopulmonary disease. 2: Large hiatal hernia. Reviewed, dictated and finalized at location A.
--- NOTE | 2020-09-13 16:57 | ECG_ITS ---
Measurements Intervals [place] Rate: 81 P: -9 VA: 145 QRS: -29 QRSD: 94 T: -9 QT: 364 QTc: 424 Interpretive Statements SINUS RHYTHM VOLTAGE CRITERIA FOR LVH POOR R WAVE PROGRESSION, ANTERIOR LEADS NONSPECIFIC ST & T-WAVE ABNORMALITY- ANT/INF LEADS BASELINE ARTIFACT- I, II, III, AVR, AVL, AVF, V1-V6 BORDERLINE ECG Electronically Signed On 09-13-2020 18:25:51 CDT by Chaitanya Son D.O.
--- NOTE | 2020-09-13 17:01 | ED.GENADULT ---
HPI - General Adult General Chief complaint: Upper Respiratory Infection Stated complaint: chest tightness with breathing Time Seen by Provider: 09/13/20 16:15 Source: patient Mode of arrival: ambulatory Limitations: no limitations History of Present Illness HPI narrative: Patient presents for evaluation of chest pressure and heaviness. She states she feels like someone is sitting on her chest. Symptoms have been present for about twelve days. She has an underlying history of asthma and states she evaluated by her primary care provider 12 days ago. She was given a prescription for prednisone which she completed as directed. Medication did not particularly help her symptoms. She contacted her primary doctor again approximately 4 days ago and received a script for Qvar. That medication has been ineffective. She has not used her albuterol inhaler in the last two days. Prior to that time she was using two to three times per day with no improvement in her symptoms. She denies any recent surgeries. No personal or family hx of VTE. Not on exogenous estrogen. No fever, chills, nausea, vomiting. She has receive both doses of her COVID vaccine. She does not smoke. She states her current symptoms are consistent with those she experienced in the past with pneumonia. Related Data Allergies Allergy/AdvReac Type Severity Reaction Status Date / Time albuterol Allergy Severe hives Verified 09/03/20 13:52 [From Proventil HFA] Review of Systems Review of Systems: Narrative: CONSTITUTIONAL: Denies fever, chills, or sweats. EYES: Denies visual changes, redness, or discharge. ENT: Denies rhinorrhea, congestion, sore throat, or otalgia. CARDIOVASCULAR:Reports chest pressure and tightness. Denies palpitations and edema RESPIRATORY:Reports cough and exertional dyspnea GASTROINTESTINAL: Denies abdominal pain, nausea, vomiting, or diarrhea. GENITOURINARY: Denies dysuria or hematuria. SKIN: Denies rash or itching. MUSCULOSKELETAL: Denies back pain, joint pain, or myalgia. NEUROLOGIC: Denies headache, numbness, dizziness, or weakness. PSYCHIATRIC: Denies anxiety or depression. [facility] Past Medical History Medical History Asthma Bipolar disorder Depression GERD (gastroesophageal reflux disease) Iron deficiency anemia Surgical History Surgical History H/O colonoscopy H/O endoscopy No history of previous surgery Family History Family History Mother High cholesterol Sibling Adverse reaction to anesthetic agent ADHD (attention deficit hyperactivity disorder) Depression Grandparent Ovarian cancer Social History Social History Social History: The patient is lives with her in [place]. She designates her , Ankit, as her surrogate decision maker and she wishes to be a full code. She is a lifelong nonsmoker and denies alcohol and drug abuse. Smoking status: Never smoker Alcohol intake: never Substance use: never Substance use type: does not use Gender identity (if verbalized by the patient): Female Spiritual care concerns: No Agree to blood products: Yes Exam Narrative: Exam Narrative: GENERAL: Well-appearing, well-nourished, and in no acute distress. HEAD: Normocephalic, atraumatic. EYES: PERRLA and EOMI. ENT: Nares clear, no rhinorrhea or epistaxis. Mucous membranes moist. Oropharynx without tonsillar hypertrophy exudate or other lesions. Bilateral TMs pearly narayan nonbulging NECK: Supple. No adenopathy or masses. No carotid bruits or JVD CHEST: Clear to auscultation. No respiratory distress. No wheezes rales or rhonchi HEART: Rate 102. Regular rhythm. No murmur heard. Normal peripheral pulses. ABDOMEN: Soft, nontender, nondistended, normal a
[2020-09-13] MEDS: ALBUTEROL SULFATE NEB 2.5 MG/0.5 ML INH INHALATION (17:07)
[2020-09-13] MEDS: IPRATROPIUM BR 0.02% INH SOLN 0.5 MG/2.5 ML VIAL INHALATION (17:07)
[2020-09-13] MEDS: methylPREDNISolone SOD SUCC 125 MG VIAL IV PUSH (17:13)
[2020-09-13 17:40] LABS: Basophils Percent Auto 0.4 % (0.2-1.2); Eosinophils Absolute Auto 0.1 K/mm3 (0-0.3); Hematocrit 43.7 % (37.0-47.0); Hemoglobin 14.5 g/dL (12.0-15.0); Immature Granulocyte Absolute 0.06 K/mm3 (0.00-0.031); Immature Granulocyte Percent A 0.6 % (0-0.5); Lymphocytes Absolute Auto 3.26 K/mm3 (0.9-3.2); Lymphocytes Percent Auto 31.3 % (18.3-44.2); Mean Corpuscular HGB Conc 33.2 g/dl (32-36); Mean Corpuscular Hemoglobin 27.8 pg (26-34); Mean Corpuscular Volume 83.7 fl (80-100); Monocytes Absolute Auto 0.8 K/mm3 (0.1-0.6); Monocytes Percent Auto 7.3 % (2.6-8.5); Neutrophils Absolute Auto 6.2 K/mm3 (1.3-6.7); Neutrophils Percent Auto 59.4 % (45.5-73.1); Platelet Count Result 499 k/mm3 (150-375); Red Blood Count 5.22 M/mm3 (4.2-5.4); Red Cell Distribution Width 13.3 % (11.5-14.5); White Blood Count 10.4 K/mm3 (4.5-10.0)
[2020-09-13 17:52] LABS: INR 0.9; Prothrombin Time 12.5 Seconds (11.1-14.7)
[2020-09-13 17:54] LABS: Partial Thromboplastin Time 26.2 SECONDS (22.3-36.8)
[2020-09-13 17:55] LABS: Alanine Aminotransferase 13 U/L (4-35); Albumin Level 4.2 g/dL (3.5-5.1); Alkaline Phosphatase 82 U/L (38-126); Anion Gap 8 mmol/L (8-16); Aspartate Amino Transferase 18 U/L (14-36); Bilirubin,Total 0.4 mg/dL (0.2-1.3); Blood Urea Nitrogen 13 mg/dL (7-17); Calcium 9.3 mg/dL (8.4-10.2); Carbon Dioxide 28 mmol/L (22-30); Chloride 101 mmol/L (98-107); Estimated CRCL calculation 97 ml/min; Estimated Glomerular Filt Rate > 60; Glucose 107 mg/dL (65-105); Potassium 3.5 mmol/L (3.4-5.0); Sodium 137 mmol/L (137-145)
[2020-09-13 18:00] LABS: D Dimer < 0.22 ug/mL (<0.48)
[2020-09-13 18:07] LABS: Troponin I < 0.012 ng/mL (0.000-0.034)
== END 2020-09-13 18:58 | disposition home or self-care (01) ==
PROVIDERS: Emergency Provider Nurse Practitioner; PCP Family Medicine
DX: J45.901 Unspecified asthma with (acute) exacerbation (principal); K21.9 Gastro-esophageal reflux disease without esophagitis; F31.9 Bipolar disorder, unspecified; Z86.2 Personal history of diseases of the blood and blood-forming organs and certain disorders involving the immune mechanism; K44.9 Diaphragmatic hernia without obstruction or gangrene; R94.31 Abnormal electrocardiogram [ECG] [EKG]
CPT/HCPCS: 36415; 71046; 80053; 84484; 85025; 85380; 85610; 85730; 93005; 94640; 96374; 99284; J2930

== ENCOUNTER 2020-12-03 17:12 | Outpatient (CLI) | payer BC, SELFPAY ==
--- NOTE | ~2020-12-03 | XR_ITS ---
XR ankle RT min 3V DATE: 12/03/2020 17:50 INDICATION: Ankle pain, foot pain TECHNIQUE: 4 views COMPARISON: None FINDINGS: Prominent plantar calcaneal enthesopathy without associated erosive change or periostitis. No fracture or dislocation of the ankle or disruption of the ankle mortise. No periosteal reaction or bone destruction. IMPRESSION: Prominent plantar calcaneal enthesopathy Reviewed, dictated and finalized at location A.
== END 2020-12-03 17:13 ==
PROVIDERS: PCP Family Medicine; Visit Provider Physician Assistant
DX: M77.31 Calcaneal spur, right foot (principal)
CPT/HCPCS: 73610

== ENCOUNTER 2020-12-04 10:25 | Emergency (ER) | payer BC, SELFPAY ==
--- NOTE | ~2020-12-04 | XR_ITS ---
EXAMINATION: XR ankle RT min 3V DATE: 12/04/2020 11:33 INDICATION: Lateral right ankle pain and swelling post injury TECHNIQUE: Anteroposterior, oblique, mortise, and lateral views of the right ankle were obtained. COMPARISON: 12/03/2020 FINDINGS: Mildly comminuted fracture at the tip of the lateral malleolus with mild displacement of a couple sma ll bone fragments. No other fractures identified. Alignment remains otherwise normal with congruent a nkle mortise. Joint spaces are normal. Moderate-sized plantar calcaneal spur. Prominent soft tissue s welling about the lateral malleolus. No definitive ankle joint effusion. IMPRESSION: 1. Couple small minimally displaced likely avulsion fracture fragments near the tip of the lateral ma lleolus. Reviewed, dictated and finalized at location A. IMPRESSION: 1. Couple small minimally displaced likely avulsion fracture fragments near the tip of the lateral malleolus.
[2020-12-04 10:52] VITALS: BP 124/86; PULSE 91; RESP 16; TEMP 36.3; O2SAT 98
--- NOTE | 2020-12-04 12:16 | ED.LOWEXIN ---
HPI - Extremity Injury (Lower) General Chief Complaint: Extremity Injury, Lower Stated Complaint: R ankle pain/injury Time Seen by Provider: 12/04/20 11:52 Source: patient and family Mode of arrival: ambulatory Limitations: no limitations History of Present Illness HPI Narrative: 50-year-old female Here for an ankle injury Patient rolled her right ankle stepping off of a porch step a couple hours before arriving today and has pain and swelling laterally She has been able to bear a little bit of weight very gingerly on the injured leg No other injuries Related Data Allergies Allergy/AdvReac Type Severity Reaction Status Date / Time albuterol Allergy Severe hives Verified 12/04/20 11:30 [From Proventil HFA] NSAIDS (Non-Steroidal AdvReac Unknown hx of Verified 12/04/20 11:30 Anti-Inflamma ulcers Review of Systems Review of Systems: All systems reviewed & are unremarkable except as noted in HPI and below Constitutional: Constitutional: Denies headache(s) ENT: Denies headache(s) Cardiovascular: Cardiovascular: Denies dyspnea Respiratory: Respiratory: Denies dyspnea Genitourinary: Genitourinary: Denies urinary frequency Musculoskeletal: Musculoskeletal: Denies back pain, Denies deformity, Reports arthralgias, Reports joint swelling and Denies numbness Integumentary/Breasts: Skin/Breast: Denies wounds Neurologic: Denies focal weakness and Denies numbness PMFSH Past Medical History Medical History Asthma Bipolar disorder Depression GERD (gastroesophageal reflux disease) Iron deficiency anemia Surgical History Surgical History H/O colonoscopy H/O endoscopy No history of previous surgery Family History Family History Mother High cholesterol Sibling Adverse reaction to anesthetic agent ADHD (attention deficit hyperactivity disorder) Depression Grandparent Ovarian cancer Social History Social History Social History: The patient is lives with her in [place]. She designates her , Ankit, as her surrogate decision maker and she wishes to be a full code. She is a lifelong nonsmoker and denies alcohol and drug abuse. Smoking status: Never smoker Alcohol intake: never Substance use: never Substance use type: does not use Gender identity (if verbalized by the patient): Female Spiritual care concerns: No Agree to blood products: Yes Exam Const: General: cooperative and no acute distress Orientation/consciousness: patient oriented x3 (alert) HENMT: Head: normal to inspection, normocephalic, atraumatic, no contusions and no hematomas Eyes: Conjunctivae: conjunctivae normal EOM: EOMs intact bilaterally Neck: Neck: normal visual inspection, supple and no JVD Resp: Effort & Inspection: normal respiratory effort and not labored Auscultation: other (BS =) Skin: General skin exam: normal color and no rashes or lesions noted Neuro: General: patient oriented x3 (alert) and moves all extremities Speech: normal speech Extrem: Other: Right ankle is swollen and tender laterally and over the ATF The fibula is tender posteriorly There is no laxity of the ankle joint Neurovascular is normal Psych: Affect: normal affect Course Course Emergency Course: Splinted by ED techs She would like to follow-up with Dr. Sanchez for Ortho who she's seen before Vital Signs Vital signs: Vital Signs Temperature 36.3 C L 12/04/20 10:52 Pulse Rate 91 12/04/20 10:52 Respiratory Rate 16 12/04/20 10:52 Blood Pressure 124/86 12/04/20 10:52 Pulse Oximetry 98 12/04/20 10:52 Temperature 36.3 C L 12/04/20 10:52 Pulse Rate 91 12/04/20 10:52 Respiratory Rate 16 12/04/20 10:52 Blood Pressure 124
== END 2020-12-04 13:52 | disposition home or self-care (01) ==
PROVIDERS: Emergency Provider Emergency Medicine; PCP Family Medicine
DX: S82.61XA Displaced fracture of lateral malleolus of right fibula, initial encounter for closed fracture (principal); J45.909 Unspecified asthma, uncomplicated; K21.9 Gastro-esophageal reflux disease without esophagitis; D50.9 Iron deficiency anemia, unspecified; F31.9 Bipolar disorder, unspecified; X50.9XXA Other and unspecified overexertion or strenuous movements or postures, initial encounter
CPT/HCPCS: 29515; 73610; 99284

== ENCOUNTER 2021-05-27 11:41 | Outpatient (CLI) | payer BC, SELFPAY ==
[2021-05-27 12:28] LABS: Hemoglobin 13.5 g/dL (12.0-15.0); Mean Corpuscular HGB Conc 32.1 g/dl (32-36); Platelet Count Result 459 k/mm3 (150-375); Red Cell Distribution Width 13.5 % (11.5-14.5); White Blood Count 6.3 K/mm3 (4.5-10.0)
[2021-05-27 12:45] LABS: Alanine Aminotransferase 15 U/L (4-35); Albumin Level 4.4 g/dL (3.5-5.1); Alkaline Phosphatase 111 U/L (38-126); Anion Gap 5 mmol/L (8-16); Aspartate Amino Transferase 20 U/L (14-36); Bilirubin,Total 0.7 mg/dL (0.2-1.3); Blood Urea Nitrogen 11 mg/dL (7-17); Calcium 9.4 mg/dL (8.4-10.2); Carbon Dioxide 32 mmol/L (22-30); Chloride 99 mmol/L (98-107); Cholesterol 209 mg/dL (0-200); Estimated Glomerular Filt Rate > 60; Glucose 103 mg/dL (65-110); HDL Direct 46 mg/dL; Potassium 4.3 mmol/L (3.4-5.0); Sodium 136 mmol/L (137-145); Triglycerides 138 mg/dL (<150)
[2021-05-27 12:56] LABS: LDL Cholesterol Direct 118 mg/dL
[2021-05-27 13:10] LABS: Free T4 Free Thyroxine 0.86 ng/mL (0.78-2.19)
[2021-06-01 11:30] LABS: Vitamin D 1,25 (OH)2 Total 60 pg/mL (18-72); Vitamin D2 1,25 (OH)2 <8 pg/mL; Vitamin D3 1,25 (OH)2 60 pg/mL
== END 2021-05-27 11:42 | disposition home or self-care (01) ==
LOC: ANHLAB 11:42
PROVIDERS: PCP Family Medicine; Visit Provider Physician Assistant
DX: D64.9 Anemia, unspecified (principal); R53.83 Other fatigue; Z13.1 Encounter for screening for diabetes mellitus; E53.8 Deficiency of other specified B group vitamins; E55.9 Vitamin D deficiency, unspecified; E78.5 Hyperlipidemia, unspecified; Z13.220 Encounter for screening for lipoid disorders
CPT/HCPCS: 36415; 80053; 80061; 82607; 82652; 84439; 84443; 85027

== ENCOUNTER 2021-07-03 15:28 | Outpatient (CLI) | payer BC, SELFPAY ==
[2021-07-03 16:14] LABS: Basophils Percent Auto 0.3 % (0.2-1.2); Eosinophils Absolute Auto 0.1 K/mm3 (0-0.3); Eosinophils Percent Auto 0.8 % (0-4.4); Hematocrit 39.3 % (37.0-47.0); Hemoglobin 12.9 g/dL (12.0-15.0); Immature Granulocyte Absolute 0.03 K/mm3 (0.00-0.031); Immature Granulocyte Percent A 0.3 % (0-0.5); Lymphocytes Absolute Auto 3.01 K/mm3 (0.9-3.2); Lymphocytes Percent Auto 33.9 % (18.3-44.2); Mean Corpuscular HGB Conc 32.8 g/dl (32-36); Mean Corpuscular Hemoglobin 26.6 pg (26-34); Mean Platelet Volume 9.2 fl (7.4-10.4); Monocytes Absolute Auto 0.6 K/mm3 (0.1-0.6); Monocytes Percent Auto 6.4 % (2.6-8.5); Neutrophils Absolute Auto 5.2 K/mm3 (1.3-6.7); Neutrophils Percent Auto 58.3 % (45.5-73.1); Platelet Count Result 487 k/mm3 (150-375); Red Blood Count 4.85 M/mm3 (4.2-5.4); Red Cell Distribution Width 13.7 % (11.5-14.5); White Blood Count 8.9 K/mm3 (4.5-10.0)
[2021-07-03 16:26] LABS: Alanine Aminotransferase 15 U/L (4-35); Albumin Level 4.2 g/dL (3.5-5.1); Alkaline Phosphatase 91 U/L (38-126); Anion Gap 6 mmol/L (8-16); Aspartate Amino Transferase 19 U/L (14-36); Bilirubin,Total 0.2 mg/dL (0.2-1.3); Blood Urea Nitrogen 17 mg/dL (7-17); CRP 1.5 mg/dL (<1.0); Calcium 8.9 mg/dL (8.4-10.2); Carbon Dioxide 31 mmol/L (22-30); Chloride 100 mmol/L (98-107); Estimated Glomerular Filt Rate > 60; Glucose 94 mg/dL (65-110); Potassium 3.5 mmol/L (3.4-5.0); Sodium 137 mmol/L (137-145)
[2021-07-03 16:38] LABS: Iron 44 ug/dL (37-170)
[2021-07-03 16:45] LABS: Erythrocyte Sedimentation Rate 11 mm/hr (0-20)
[2021-07-03 16:49] LABS: Percent Iron Saturation 12 % (20-50)
== END 2021-07-03 15:29 | disposition home or self-care (01) ==
PROVIDERS: PCP Family Medicine; Visit Provider Internal Medicine Hematology & Oncology
DX: D47.3 Essential (hemorrhagic) thrombocythemia (principal)
CPT/HCPCS: 36415; 80053; 82728; 83540; 83550; 85025; 85652; 86140

== ENCOUNTER 2021-09-01 10:34 | Emergency (ER) | payer BC, SELFPAY ==
--- NOTE | ~2021-09-01 | XR_ITS ---
EXAMINATION: XR elbow RT min 3V DATE: 09/01/2021 12:07 INDICATION: Right elbow pain and swelling post fall TECHNIQUE: Anteroposterior, two oblique and lateral views of the right elbow were obtained. COMPARISON: None. FINDINGS: Bone alignment is normal. There is linear lucency projecting across the tip of the sublime tubercle o f the proximal ulna consistent with possible nondisplaced avulsion fracture. There is however no sign ificant overlying soft tissue swelling or evident elbow joint effusion and differential would include either chronic fracture or artifactual appearance due to small enthesophyte or enthesopathic ossific ation at the ulnar insertion of the anterior band of the ulnar collateral ligament. No other lesions suspicious for fracture. Joint spaces are normal. Soft tissues are unremarkable. IMPRESSION: 1. Possible age-indeterminate small nondisplaced avulsion fracture at the sublime tubercle of the pro ximal ulna versus artifactual appearance due to enthesophyte/enthesopathic ossification at the distal anterior band of the ulnar collateral ligament. Reviewed, dictated and finalized at location A. IMPRESSION: 1. Possible age-indeterminate small nondisplaced avulsion fracture at the subli me tubercle of the proximal ulna versus artifactual appearance due to enthesoph yte/enthesopathic ossification at the distal anterior band of the ulnar collate ral ligament.
[2021-09-01 10:57] VITALS: BP 141/93; PULSE 80; RESP 16; TEMP 36.4; O2SAT 98
--- NOTE | 2021-09-01 13:01 | ED.UPPEXIN ---
HPI - Extremity Injury (Upper) General Chief Complaint: Extremity Injury, Upper Stated Complaint: fall/arm injury Time Seen by Provider: 09/01/21 11:12 History of Present Illness HPI narrative: Patient is a 51-year-old female who presents ER with right elbow pain. Patient has slip and fall last night and fell on her bottom while holding her hands behind her. She developed pain in her medial elbow. She is able perform range of motion. No numbness or tingling. Feels slightly swollen. Symptoms are better if she holds her hand up over her heart. Related Data Allergies Allergy/AdvReac Type Severity Reaction Status Date / Time albuterol Allergy Severe hives Verified 05/27/21 10:55 [From Proventil HFA] NSAIDS (Non-Steroidal AdvReac Unknown hx of Verified 05/27/21 10:55 Anti-Inflamma ulcers Review of Systems Musculoskeletal: Musculoskeletal: Reports arthralgias, Reports joint swelling and Denies muscle cramps Integumentary/Breasts: Skin/Breast: Denies pruritus, Denies erythema and Denies skin ulcer Neurologic: Denies syncope, Denies focal weakness and Denies numbness PMF Past Medical History Medical History Asthma Bipolar disorder Depression GERD (gastroesophageal reflux disease) Iron deficiency anemia Surgical History Surgical History H/O colonoscopy H/O endoscopy No history of previous surgery Family History Family History Mother High cholesterol Sibling Adverse reaction to anesthetic agent ADHD (attention deficit hyperactivity disorder) Depression Grandparent Ovarian cancer Social History Social History Social History: The patient is lives with her in [place]. She designates her , Ankit, as her surrogate decision maker and she wishes to be a full code. She is a lifelong nonsmoker and denies alcohol and drug abuse. Alcohol intake: never Substance use: never Substance use type: does not use Gender identity (if verbalized by the patient): Female Spiritual care concerns: No Agree to blood products: Yes Exam Narrative: GENERAL: Well-appearing, well-nourished, and in no acute distress. HEAD: Normocephalic, atraumatic. CHEST: Clear to auscultation. No respiratory distress. HEART: Regular rate and rhythm. Normal peripheral pulses. EXTREMITIES: Focused exam of the right upper extremity reveals medial elbow pain with normal range of motion in supination/pronation. No radial head tenderness. SKIN: Warm, dry, no rash. NEURO: No focal deficits. Alert and oriented x3. PSYCH: Normal mood and affect. Course Course Emergency Course: Patient informed results. Discussed with Ortho. Placed in sling. Early range of motion. Advised against pushing and pulling activities. Follow-up with orthopedic surgery. Vital Signs Vital signs: Vital Signs Temperature 97.6 F 09/01/21 10:57 Pulse Rate 80 09/01/21 10:57 Respiratory Rate 16 09/01/21 10:57 Blood Pressure 141/93 H 09/01/21 10:57 Pulse Oximetry 98 09/01/21 10:57 Temperature 97.6 F 09/01/21 10:57 Pulse Rate 80 09/01/21 10:57 Respiratory Rate 16 09/01/21 10:57 Blood Pressure 141/93 H 09/01/21 10:57 Pulse Oximetry 98 09/01/21 10:57 MDM - Extremity Injury (Upper) Imaging Data Radiologist's impression: ITS Impressions Elbow X-Ray 09/01/21 12:18 IMPRESSION: 1. Possible age-indeterminate small nondisplaced avulsion fracture at the sublime tubercle of the proximal ulna versus artifactual appearance due to enthesophyte/enthesopathic ossification at the distal anterior band of the ulnar collateral ligament. Discharge Plan Discharge Clinical Impression: Ulna fracture Patient Disposition: Home, Self-Care Condition: Stable
== END 2021-09-01 15:03 | disposition home or self-care (01) ==
PROVIDERS: Emergency Provider Emergency Medicine; PCP Family Medicine
DX: S52.201A Unspecified fracture of shaft of right ulna, initial encounter for closed fracture (principal); W01.0XXA Fall on same level from slipping, tripping and stumbling without subsequent striking against object, initial encounter
CPT/HCPCS: 73080; 99284; A4565

== ENCOUNTER 2021-10-06 12:52 | Outpatient (CLI) | payer BC, SELFPAY ==
[2021-10-06 13:09] LABS: Basophils Percent Auto 0.6 % (0.2-1.2); Eosinophils Absolute Auto 0.1 K/mm3 (0-0.3); Eosinophils Percent Auto 1.1 % (0-4.4); Hematocrit 40.5 % (37.0-47.0); Hemoglobin 12.9 g/dL (12.0-15.0); Immature Granulocyte Absolute 0.03 K/mm3 (0.00-0.031); Immature Granulocyte Percent A 0.4 % (0-0.5); Lymphocytes Absolute Auto 2.87 K/mm3 (0.9-3.2); Lymphocytes Percent Auto 40.1 % (18.3-44.2); Mean Corpuscular HGB Conc 31.9 g/dl (32-36); Mean Corpuscular Hemoglobin 26.4 pg (26-34); Mean Corpuscular Volume 82.8 fl (80-100); Mean Platelet Volume 8.9 fl (7.4-10.4); Monocytes Absolute Auto 0.5 K/mm3 (0.1-0.6); Neutrophils Absolute Auto 3.6 K/mm3 (1.3-6.7); Neutrophils Percent Auto 50.8 % (45.5-73.1); Platelet Count Result 469 k/mm3 (150-375); Red Blood Count 4.89 M/mm3 (4.2-5.4); Red Cell Distribution Width 14.1 % (11.5-14.5); White Blood Count 7.2 K/mm3 (4.5-10.0)
[2021-10-06 14:53] LABS: Iron 49 ug/dL (37-170)
[2021-10-06 15:02] LABS: Percent Iron Saturation 13 % (20-50)
== END 2021-10-06 12:53 | disposition home or self-care (01) ==
LOC: ANHLAB 12:53
PROVIDERS: PCP Family Medicine; Visit Provider Internal Medicine Hematology & Oncology
DX: D47.3 Essential (hemorrhagic) thrombocythemia (principal)
CPT/HCPCS: 36415; 82728; 83540; 83550; 85025

== ENCOUNTER 2022-02-19 05:41 | Emergency (ER) | payer BC, SELFPAY ==
[2022-02-19 05:46] VITALS: BP 135/80; PULSE 80; RESP 18; TEMP 35.9; O2SAT 97
--- NOTE | 2022-02-19 05:53 | ED.EYEPROB ---
HPI - Eye Problem General Chief complaint: Eye Problems Stated complaint: dog scratched left eye Time Seen by Provider: 02/19/22 05:42 History of Present Illness HPI Narrative: 51-year-old female presented the emergency department for evaluation of an injury to her left arm. Patient states she was lying in bed with her dog and accidentally scratched her left eye. Patient states she does feel like there is sand in her eye and patient has excessive watering from the left eye. Patient denies any change in vision. Does not wear contacts but does wear glasses. Related Data Allergies Allergy/AdvReac Type Severity Reaction Status Date / Time albuterol Allergy Severe hives Verified 02/23/22 13:45 [From Proventil HFA] NSAIDS (Non-Steroidal AdvReac Unknown hx of Verified 02/23/22 13:45 Anti-Inflamma ulcers Review of Systems Review of Systems: CONSTITUTIONAL: Denies fever, chills, or sweats. EYES: Denies visual changes, redness, or discharge. ENT: See HPI CARDIOVASCULAR: Denies chest pain, palpitations, or edema. RESPIRATORY: Denies cough or dyspnea. GASTROINTESTINAL: Denies abdominal pain, nausea, vomiting, or diarrhea. GENITOURINARY: Denies dysuria or hematuria. SKIN: Denies rash or itching. MUSCULOSKELETAL: Denies back pain, joint pain, or myalgia. NEUROLOGIC: Denies headache, numbness, or weakness. [facility] Past Medical History Medical History (Updated 02/25/22 @ 01:26 by James Cartagena MD) Asthma Bipolar disorder Depression Endometriosis Gastric ulcer GERD (gastroesophageal reflux disease) Iron deficiency anemia Wears glasses Surgical History Surgical History H/O colonoscopy H/O endoscopy Family History Family History Mother High cholesterol Sibling Adverse reaction to anesthetic agent ADHD (attention deficit hyperactivity disorder) Depression Grandparent Ovarian cancer Social History Social History (Updated 02/23/22 @ 13:54 by Milana Swanson MA) Social History: The patient is lives with her in [place]. She designates her , Ankit, as her surrogate decision maker and she wishes to be a full code. She is a lifelong nonsmoker and denies alcohol and drug abuse. 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 HEAD: normocephalic, atraumatic. EYES: PERRLA/EOMI, conjunctivae clear. Fluorescein uptake NOSE: Normal no drainage EARS:TMS clear with good light reflex. THROAT: Pharynx clear, no exudate. NECK: Supple. No adenopathy, no masses. RESPIRATORY: Airway patent, respirations nonlabored. Clear to auscultation bilaterally, no rales, rhonchi, wheezing. CARDIOVASCULAR: Regular rate and rhythm without murmurs rubs or gallops. ABDOMINAL: Soft, nontender, nondistended, normal bowel sounds MUSCULOSKELETAL: Moves all extremities. Strength/ROM intact, No edema, No calf tenderness. NEURO: Alert. Cranial nerves II through XII intact. Good gait. Good coordination SKIN: Warm, dry. Normal Color PSYCHIATRIC: Normal affect/mood. Course Course Emergency Course: Patient does have a corneal abrasion with fluorescein uptake the left lateral aspect of the left cornea. Patient was treated w
[2022-02-19] MEDS: ERYTHROMYCIN OPHTH OINTMENT 1 GM TUBE 1 APPLIC LEFT EYE (06:05)
[2022-02-19] MEDS: TETANUS,DIPHTHERIA,AC PERTUSSIS ADULT (0.5 ML) BOOSTRIX IM (06:05)
== END 2022-02-19 06:13 | disposition home or self-care (01) ==
LOC: ANHED 05:55
PROVIDERS: Emergency Provider Emergency Medicine; PCP Family Medicine
DX: S05.02XA Injury of conjunctiva and corneal abrasion without foreign body, left eye, initial encounter (principal); Z23 Encounter for immunization; J45.909 Unspecified asthma, uncomplicated; N80.9 Endometriosis, unspecified; K21.9 Gastro-esophageal reflux disease without esophagitis; D50.9 Iron deficiency anemia, unspecified; F31.9 Bipolar disorder, unspecified; W54.1XXA Struck by dog, initial encounter
CPT/HCPCS: 90471; 90715; 99283; A9270

== ENCOUNTER 2022-04-20 14:14 | Outpatient (CLI) | payer BC, SELFPAY ==
[2022-04-20 14:27] LABS: Basophils Absolute Auto 0.1 K/mm3 (0.0-0.1); Basophils Percent Auto 0.7 % (0.2-1.2); Eosinophils Absolute Auto 0.1 K/mm3 (0-0.3); Hematocrit 38.3 % (37.0-47.0); Hemoglobin 12.3 g/dL (12.0-15.0); Immature Granulocyte Absolute 0.02 K/mm3 (0.00-0.031); Immature Granulocyte Percent A 0.3 % (0-0.5); Lymphocytes Absolute Auto 2.87 K/mm3 (0.9-3.2); Lymphocytes Percent Auto 37.6 % (18.3-44.2); Mean Corpuscular HGB Conc 32.1 g/dl (32-36); Mean Corpuscular Hemoglobin 25.9 pg (26-34); Mean Corpuscular Volume 80.8 fl (80-100); Mean Platelet Volume 8.5 fl (7.4-10.4); Monocytes Absolute Auto 0.4 K/mm3 (0.1-0.6); Monocytes Percent Auto 5.8 % (2.6-8.5); Neutrophils Absolute Auto 4.2 K/mm3 (1.3-6.7); Neutrophils Percent Auto 54.6 % (45.5-73.1); Platelet Count Result 514 k/mm3 (150-375); Red Blood Count 4.74 M/mm3 (4.2-5.4); White Blood Count 7.6 K/mm3 (4.5-10.0)
[2022-04-20 21:07] LABS: Iron 46 ug/dL (37-170)
[2022-04-20 21:17] LABS: Percent Iron Saturation 12 % (20-50)
[2022-04-20 21:30] LABS: Anion Gap 8 mmol/L (8-16); Blood Urea Nitrogen 11 mg/dL (7-17); Calcium 8.8 mg/dL (8.4-10.2); Carbon Dioxide 28 mmol/L (22-30); Chloride 98 mmol/L (98-107); Estimated Glomerular Filt Rate > 60; Glucose 141 mg/dL (65-110); Potassium 3.6 mmol/L (3.4-5.0); Sodium 134 mmol/L (137-145)
== END 2022-04-20 14:15 | disposition home or self-care (01) ==
PROVIDERS: PCP Family Medicine; Visit Provider Internal Medicine Hematology & Oncology
DX: D75.838 Other thrombocytosis (principal)
CPT/HCPCS: 36415; 80048; 82728; 83540; 83550; 85025

== ENCOUNTER 2022-05-18 13:30 | Outpatient (CLI) | payer BC, SELFPAY ==
[2022-05-18 13:42] LABS: Basophils Percent Auto 0.3 % (0.2-1.2); Eosinophils Absolute Auto 0.1 K/mm3 (0-0.3); Eosinophils Percent Auto 1.1 % (0-4.4); Hematocrit 37.4 % (37.0-47.0); Hemoglobin 11.7 g/dL (12.0-15.0); Immature Granulocyte Absolute 0.03 K/mm3 (0.00-0.031); Immature Granulocyte Percent A 0.4 % (0-0.5); Lymphocytes Absolute Auto 2.65 K/mm3 (0.9-3.2); Lymphocytes Percent Auto 33.7 % (18.3-44.2); Mean Corpuscular HGB Conc 31.3 g/dl (32-36); Mean Corpuscular Hemoglobin 25.5 pg (26-34); Mean Corpuscular Volume 81.5 fl (80-100); Mean Platelet Volume 8.8 fl (7.4-10.4); Monocytes Absolute Auto 0.5 K/mm3 (0.1-0.6); Monocytes Percent Auto 6.2 % (2.6-8.5); Neutrophils Absolute Auto 4.6 K/mm3 (1.3-6.7); Neutrophils Percent Auto 58.3 % (45.5-73.1); Platelet Count Result 501 k/mm3 (150-375); Red Blood Count 4.59 M/mm3 (4.2-5.4); Red Cell Distribution Width 14.3 % (11.5-14.5); White Blood Count 7.9 K/mm3 (4.5-10.0)
[2022-05-24 15:22] LABS: CALR Exon 9 Mutation Not Detected (Not Detected); CSF3R Exon 14/17 Mutation Not Detected (Not Detected); JAK2 Exon 12 Mutation Not Detected (Not Detected); JAK2 V617F Mutation Not Detected (Not Detected); MPL Exon 10 Mutation Not Detected (Not Detected); Specimen Source Blood
== END 2022-05-18 13:31 | disposition home or self-care (01) ==
LOC: ANHLAB 13:33
PROVIDERS: PCP Family Medicine; Visit Provider Internal Medicine Hematology & Oncology
DX: D47.3 Essential (hemorrhagic) thrombocythemia (principal)
CPT/HCPCS: 36415; 81219; 81270; 81279; 81339; 81479; 85025

== ENCOUNTER 2022-07-20 13:21 | Outpatient (CLI) | payer BC, SELFPAY ==
[2022-07-20 13:31] LABS: Basophils Percent Auto 0.5 % (0.2-1.2); Eosinophils Absolute Auto 0.1 K/mm3 (0-0.3); Eosinophils Percent Auto 0.9 % (0-4.4); Hematocrit 36.2 % (37.0-47.0); Hemoglobin 11.2 g/dL (12.0-15.0); Immature Granulocyte Absolute 0.02 K/mm3 (0.00-0.031); Immature Granulocyte Percent A 0.3 % (0-0.5); Lymphocytes Absolute Auto 2.44 K/mm3 (0.9-3.2); Lymphocytes Percent Auto 31.2 % (18.3-44.2); Mean Corpuscular HGB Conc 30.9 g/dl (32-36); Mean Corpuscular Volume 77.5 fl (80-100); Mean Platelet Volume 8.7 fl (7.4-10.4); Monocytes Absolute Auto 0.5 K/mm3 (0.1-0.6); Monocytes Percent Auto 6.4 % (2.6-8.5); Neutrophils Absolute Auto 4.7 K/mm3 (1.3-6.7); Neutrophils Percent Auto 60.7 % (45.5-73.1); Platelet Count Result 538 k/mm3 (150-375); Red Blood Count 4.67 M/mm3 (4.2-5.4); Red Cell Distribution Width 14.4 % (11.5-14.5); White Blood Count 7.8 K/mm3 (4.5-10.0)
[2022-07-20 16:50] LABS: Iron 18 ug/dL (37-170)
[2022-07-20 17:01] LABS: Percent Iron Saturation 4 % (20-50)
[2022-07-20 17:27] LABS: Ferritin 7.78 ng/mL (6.24-137)
== END 2022-07-20 13:22 | disposition home or self-care (01) ==
LOC: ANHLAB 13:23
PROVIDERS: PCP Family Medicine; Visit Provider Internal Medicine Hematology & Oncology
DX: D47.3 Essential (hemorrhagic) thrombocythemia (principal)
CPT/HCPCS: 36415; 82607; 82728; 83540; 83550; 85025

== ENCOUNTER 2022-08-13 16:47 | Emergency (ER) | payer BC, SELFPAY ==
--- NOTE | ~2022-08-13 | XR_ITS ---
EXAMINATION: XR chest 1V portable INDICATION: Cough and wheezing TECHNIQUE: Portable AP chest at 0006 hours COMPARISON: 09/13/2020 FINDINGS: There is a large hiatal hernia. The lungs are free of focal airspace opacities. No pleural effusion or pneumothorax. The heart size is normal. IMPRESSION: 1. Large hiatal hernia. Reviewed, dictated and finalized at location A. IMPRESSION: 1. Large hiatal hernia.
[2022-08-13 16:52] VITALS: BP 139/73; PULSE 88; RESP 18; TEMP 36.3; O2SAT 98
[2022-08-13 23:07] VITALS: BP 121/81; PULSE 84; RESP 15; TEMP 36.4; O2SAT 100
[2022-08-13 23:08] VITALS: O2SAT 100
[2022-08-14 01:21] VITALS: BP 128/83; PULSE 90; RESP 15; O2SAT 100
--- NOTE | 2022-08-14 01:28 | ED.GENADULT ---
HPI - General Adult General Chief complaint: Upper Respiratory Infection Stated complaint: cough, asthma Time Seen by Provider: 08/13/22 22:34 Related Data Allergies Allergy/AdvReac Type Severity Reaction Status Date / Time albuterol Allergy Severe hives Verified 08/13/22 16:56 [From Proventil HFA] NSAIDS (Non-Steroidal AdvReac Unknown hx of Verified 08/13/22 16:56 Anti-Inflamma ulcers PMFSH Past Medical History Medical History Asthma Bipolar disorder Depression Endometriosis Gastric ulcer GERD (gastroesophageal reflux disease) Iron deficiency anemia Wears glasses Surgical History Surgical History H/O colonoscopy H/O endoscopy Family History Family History Mother High cholesterol Sibling Adverse reaction to anesthetic agent ADHD (attention deficit hyperactivity disorder) Depression Grandparent Ovarian cancer Social History Social History Social History: The patient is lives with her in [place]. She designates her , Ankit, as her surrogate decision maker and she wishes to be a full code. She is a lifelong nonsmoker and denies alcohol and drug abuse. 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 HEAD: Normocephalic, atraumatic. EYES: PERRLA and EOMI. ENT: Nares clear, no rhinorrhea or epistaxis.? Mucous membranes moist.? Oropharynx without tonsillar hypertrophy exudate or other lesions. Mildly erythematous posterior oropharynx. NECK: Supple.? No adenopathy or masses.? CHEST: No respiratory distress. Clear to auscultation. No wheezes rales or rhonchi. HEART: Regular rate and rhythm.? No murmur heard.? Normal peripheral pulses. ABDOMEN: Soft, nontender, nondistended, normal active bowel sounds. EXTREMITIES: Normal range of motion.? No edema. SKIN: warm, dry with no rashes. NEURO: Alert and oriented x3. No focal deficits.? PSYCH: Normal mood and affect. Course Course Emergency Course: Reevaluation 30: Feeling much improved. Vital Signs Vital signs: Vital Signs Temperature 97.3 F L 08/13/22 16:52 Pulse Rate 88 08/13/22 16:52 Respiratory Rate 18 08/13/22 16:52 Blood Pressure 139/73 08/13/22 16:52 Pulse Oximetry 98 08/13/22 16:52 Oxygen Delivery Room Air 08/13/22 16:52 Temperature 97.6 F 08/13/22 23:07 Pulse Rate 78 08/14/22 03:13 Respiratory Rate 15 08/14/22 03:13 Blood Pressure 138/83 08/14/22 03:13 Pulse Oximetry 97 08/14/22 03:13 Oxygen Delivery Room Air 08/13/22 23:08 Medical Decision Making MDM Narrative Medical decision making narrative: This is a 52-year-old female who presents to the ED with chief complaint of cough x2 weeks. Patient states initially was productive, however now it is dry. Vitals are stable. Afebrile. Exam is within normal limits. Chest x-ray shows evidence of bronchitis. Her symptoms are consistent with bronchitis at this time. Prescribing a Z-Braydon to cover for any superimposed bacterial infection. Also presc
[2022-08-14] MEDS: IPRATROPIUM BR 0.02% INH SOLN 0.5 MG/2.5 ML VIAL INHALATION (01:30)
[2022-08-14 01:46] VITALS: PULSE 87; RESP 18
[2022-08-14] MEDS: predniSONE 20 MG TABLET 60 MG PO (02:12)
[2022-08-14 03:13] VITALS: BP 138/83; PULSE 78; RESP 15; O2SAT 97
[2022-08-14 04:01] VITALS: BP 114/87; PULSE 79; RESP 15; TEMP 36.6; O2SAT 96
== END 2022-08-14 04:03 | disposition home or self-care (01) ==
PROVIDERS: Emergency Provider Physician Assistant; PCP Family Medicine
DX: J45.909 Unspecified asthma, uncomplicated (principal); N80.9 Endometriosis, unspecified; K21.9 Gastro-esophageal reflux disease without esophagitis; D50.9 Iron deficiency anemia, unspecified; F31.9 Bipolar disorder, unspecified
CPT/HCPCS: 71045; 94640; 99284; J7512

== ENCOUNTER 2022-11-08 11:42 | Emergency (ER) | payer BC, SELFPAY ==
[2022-11-08 11:46] VITALS: BP 139/71; PULSE 74; RESP 18; TEMP 35.7; O2SAT 100
[2022-11-08 11:57] VITALS: BP 118/98; PULSE 81; RESP 18; TEMP 36.8; O2SAT 99
[2022-11-08 12:02] VITALS: PULSE 80
[2022-11-08 12:19] LABS: Basophils Percent Auto 0.5 % (0.2-1.2); Eosinophils Absolute Auto 0.1 K/mm3 (0-0.3); Eosinophils Percent Auto 1.1 % (0-4.4); Hemoglobin 10.2 g/dL (12.0-15.0); Immature Granulocyte Absolute 0.02 K/mm3 (0.00-0.031); Immature Granulocyte Percent A 0.4 % (0-0.5); Lymphocytes Percent Auto 32.2 % (18.3-44.2); Mean Corpuscular HGB Conc 29.1 g/dl (32-36); Mean Corpuscular Hemoglobin 21.3 pg (26-34); Mean Corpuscular Volume 72.9 fl (80-100); Mean Platelet Volume 8.9 fl (7.4-10.4); Monocytes Absolute Auto 0.3 K/mm3 (0.1-0.6); Monocytes Percent Auto 4.5 % (2.6-8.5); Neutrophils Absolute Auto 3.4 K/mm3 (1.3-6.7); Neutrophils Percent Auto 61.3 % (45.5-73.1); Platelet Count Result 534 k/mm3 (150-375); Red Cell Distribution Width 16.8 % (11.5-14.5); White Blood Count 5.6 K/mm3 (4.5-10.0)
[2022-11-08 12:34] LABS: Appearance Urine Cloudy (Clear); Bacteria Urine 4+ /hpf; Bilirubin Urine Negative (Negative); Blood Urine 1+ (Negative); Color Urine Yellow (Yellow); Glucose Urine UA Negative (Negative); Ketones Urine Trace mg/dL (Negative); Leukocyte Esterase Ur 2+ LEU/UL (Negative); Need Manual Microscopic Reviewed; Nitrate Urine Negative (Negative); Non Pathogenic Casts 0-2; Protein Urine 1+ mg/dL (Negative); Specific Grav Ur 1.034 (1.001-1.035); Squamous Epithelial Cell Urine Many /hpf (Few); WBC Urine 21-50 /hpf; pH Urine 5.5 (5.0-9.0)
[2022-11-08 12:39] LABS: Add Urine Microscopic? YES
[2022-11-08 12:41] LABS: Hypochromasia 1+ (NORMAL); Microcytosis 1+ (NORMAL); Ovalocytes 1+ (NORMAL); Platelet Estimate Increased (Adequate); Schistocytes None Seen (NORMAL)
[2022-11-08 12:47] LABS: Alanine Aminotransferase 20 U/L (6-35); Alkaline Phosphatase 87 U/L (38-126); Anion Gap 6 mmol/L (8-16); Aspartate Amino Transferase 21 U/L (14-36); Bilirubin,Total 0.4 mg/dL (0.2-1.3); Blood Urea Nitrogen 16 mg/dL (7-17); Calcium 9.2 mg/dL (8.4-10.2); Carbon Dioxide 32 mmol/L (22-30); Chloride 102 mmol/L (98-107); Estimated CRCL calculation 109 ml/min; Estimated Glomerular Filt Rate > 60; Glucose 126 mg/dL (65-110); Potassium 3.7 mmol/L (3.4-5.0); Sodium 140 mmol/L (137-145)
[2022-11-08 13:10] VITALS: BP 125/54; PULSE 80; RESP 20; O2SAT 98
--- NOTE | 2022-11-08 13:19 | ED.GENADULT ---
HPI - General Adult General Chief complaint: Weakness Stated complaint: lethargic Time Seen by Provider: 11/08/22 11:54 History of Present Illness HPI narrative: 52-year-old female presented the emergency department for evaluation of increased generalized weakness. Patient states over Tuesday and she did have some diarrhea and it began to resolve. Patient states Tuesday she was having some chills and has had some persistent generalized weakness. Patient denies any blood in her stool, denies any significant pain with urination but has had some back pain. Patient denies any prior history of kidney stones. Related Data Allergies Allergy/AdvReac Type Severity Reaction Status Date / Time albuterol Allergy Severe hives Verified 11/08/22 12:04 [From Proventil HFA] NSAIDS (Non-Steroidal AdvReac Unknown hx of Verified 11/08/22 12:04 Anti-Inflamma ulcers Review of Systems Review of Systems: All systems reviewed & are unremarkable except as noted in HPI and below PMFSH Past Medical History Medical History Asthma Bipolar disorder Depression Endometriosis Gastric ulcer GERD (gastroesophageal reflux disease) Iron deficiency anemia Wears glasses Surgical History Surgical History H/O colonoscopy H/O endoscopy Family History Family History Mother High cholesterol Sibling Adverse reaction to anesthetic agent ADHD (attention deficit hyperactivity disorder) Depression Grandparent Ovarian cancer Social History Social History Social History: The patient is lives with her in [place]. She designates her , Ankit, as her surrogate decision maker and she wishes to be a full code. She is a lifelong nonsmoker and denies alcohol and drug abuse. 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 HEAD: normocephalic, atraumatic. EYES: PERRLA/EOMI, conjunctivae clear. NOSE: Normal no drainage NECK: Supple. No adenopathy, no masses. RESPIRATORY: Airway patent, respirations nonlabored. Clear to auscultation bilaterally, no rales, rhonchi, wheezing. CARDIOVASCULAR: Regular rate and rhythm without murmurs rubs or gallops. ABDOMINAL: CVA tenderness, no suprapubic tenderness to palpation. Otherwise soft nontender abdomen with normal bowel sounds MUSCULOSKELETAL: Moves all extremities. Strength/ROM intact, No edema, No calf tenderness. NEURO: Alert. Cranial nerves II through XII intact. Good gait. Good coordination SKIN: Warm, dry. Normal Color Course Course Emergency Course: 52-year-old female presented ED for evaluation of increased generalized weakness and subjective chills. Patient is afebrile with no leukocytosis. Patient does have history of anemia and her hemoglobin is 10.2. Patient denies any current rectal bleeding denies any blood in her stool. Patient's CMP is similar to her baseline. UA was concerning for urinary tract infection, patient is leukoesterase positive had high white blood cells and high bacteri
[2022-11-08] MEDS: SODIUM CHLORIDE 0.9% IV 1,000 ML 999 ML IV CONT (13:29)
[2022-11-08 14:49] VITALS: BP 128/75; PULSE 75; RESP 20; O2SAT 100
== END 2022-11-08 14:51 | disposition home or self-care (01) ==
PROVIDERS: Emergency Provider Emergency Medicine; PCP Family Medicine
DX: N39.0 Urinary tract infection, site not specified (principal); J45.909 Unspecified asthma, uncomplicated; N80.9 Endometriosis, unspecified; K21.9 Gastro-esophageal reflux disease without esophagitis; D50.9 Iron deficiency anemia, unspecified
CPT/HCPCS: 36415; 80053; 81001; 85025; 87086; 87088; 96365; 99284; J0696; J7030

== ENCOUNTER 2022-12-27 10:31 | Emergency (ER) | payer BC, SELFPAY ==
--- NOTE | ~2022-12-27 | XR_ITS ---
EXAMINATION: XR chest 2V DATE: 12/27/2022 15:01 INDICATION: Right chest pain. TECHNIQUE: Frontal and lateral views of the chest were obtained. COMPARISON: Chest view 08/14/2022 FINDINGS: There is no pneumonia, pleural effusion, or pneumothorax. The heart size is normal. There i s a large hiatal hernia. IMPRESSION: 1. Large hiatal hernia. Reviewed, dictated and finalized at location A. IMPRESSION: 1. Large hiatal hernia.
[2022-12-27 11:40] VITALS: BP 133/71; PULSE 70; RESP 18; TEMP 36.4; O2SAT 100
--- NOTE | 2022-12-27 14:35 | ED.GENADULT ---
HPI - General Adult General Chief complaint: Unspecified Stated complaint: axilla pain Time Seen by Provider: 12/27/22 13:46 History of Present Illness HPI narrative: 52-year-old female presented the emergency department for evaluation of right-sided chest wall pain that radiates to her back and into her right lateral neck. Patient reports yesterday she was doing laundry and lifted a heavy laundry basket. Patient denies any falls or injuries. Patient reports when she woke up this morning she had the onset of the reproducible chest wall pain. Patient denies any associated shortness of breath. Related Data Allergies Allergy/AdvReac Type Severity Reaction Status Date / Time albuterol Allergy Severe hives Verified 12/27/22 11:57 [From Proventil HFA] NSAIDS (Non-Steroidal AdvReac Unknown hx of Verified 12/27/22 11:57 Anti-Inflamma ulcers Review of Systems Review of Systems: All systems reviewed & are unremarkable except as noted in HPI and below PMFSH Past Medical History Medical History Asthma Bipolar disorder Depression Endometriosis Gastric ulcer GERD (gastroesophageal reflux disease) Iron deficiency anemia Wears glasses Surgical History Surgical History H/O colonoscopy H/O endoscopy Family History Family History Mother High cholesterol Sibling Adverse reaction to anesthetic agent ADHD (attention deficit hyperactivity disorder) Depression Grandparent Ovarian cancer Social History Social History Social History: The patient is lives with her in [place]. She designates her , Ankit, as her surrogate decision maker and she wishes to be a full code. She is a lifelong nonsmoker and denies alcohol and drug abuse. 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 HEAD: normocephalic, atraumatic. EYES: PERRLA/EOMI, conjunctivae clear. NOSE: Normal no drainage NECK: Supple. No adenopathy, no masses. RESPIRATORY: Airway patent, respirations nonlabored. Clear to auscultation bilaterally, no rales, rhonchi, wheezing. CARDIOVASCULAR: Regular rate and rhythm without murmurs rubs or gallops. ABDOMINAL: Soft, nontender, nondistended, normal bowel sounds MUSCULOSKELETAL: Moves all extremities. Reproducible right lateral chest wall tenderness and right-sided trapezius tenderness. NEURO: Alert. Cranial nerves II through XII intact. Good gait. Good coordination SKIN: Warm, dry. Normal Color Course Course Emergency Course: 52-year-old female present emergency department for evaluation of reproducible right-sided chest wall pain and muscular pain. Chest x-ray showed no acute cardiopulmonary malady. Suspect muscular strain or cardiac etiology. Patient denies any shortness of breath and pain is reproducible with palpation Vital Signs Vital signs: Vital Signs Temperature 97.6 F 12/27/22 11:40 Pulse Rate 70 12/27/22 11:40 Respiratory Rate 18 12/27/22 11:40 Blood Pressure 133/71 12/27/22 11:40 Pulse Ox
[2022-12-27] MEDS: ACETAMINOPHEN 500 MG TABLET 1000 MG PO (14:39)
[2022-12-27] MEDS: CYCLOBENZAPRINE HCL 10 MG TABLET PO (14:39)
== END 2022-12-27 15:41 | disposition home or self-care (01) ==
PROVIDERS: Emergency Provider Emergency Medicine; PCP Family Medicine
DX: S46.911A Strain of unspecified muscle, fascia and tendon at shoulder and upper arm level, right arm, initial encounter (principal); X58.XXXA Exposure to other specified factors, initial encounter; J45.909 Unspecified asthma, uncomplicated; K21.9 Gastro-esophageal reflux disease without esophagitis; F31.9 Bipolar disorder, unspecified; Z79.51 Long term (current) use of inhaled steroids
CPT/HCPCS: 71046; 99283; A9270

== ENCOUNTER 2023-02-01 12:23 | Emergency (ER) | payer BC, SELFPAY ==
[2023-02-01 12:26] VITALS: BP 130/76; PULSE 103; RESP 16; TEMP 36.9; O2SAT 100
--- NOTE | 2023-02-01 13:27 | ED.GENADULT ---
HPI - General Adult General Chief complaint: Nausea/Vomiting/Diarrhea Stated complaint: diarrhea Time Seen by Provider: 02/01/23 13:32 History of Present Illness HPI narrative: Evelina Acevedo is a 52 y/o female who presents with PMHx of stomach ulcers/ anemia/ usually takes pantoprazole and iron PO. She presents today with complaints of yellow diarrhea that started 2 days ago. She reports that she has lower abdominal pain only when she has a bowel movement. She admits to fever/chills 2 days ago, no other recent illness/ no recent antibiotics/ denies changes to urine. Related Data Allergies Allergy/AdvReac Type Severity Reaction Status Date / Time albuterol Allergy Severe hives Verified 02/01/23 12:23 [From Proventil HFA] NSAIDS (Non-Steroidal AdvReac Unknown hx of Verified 02/01/23 12:23 Anti-Inflamma ulcers PMFSH Past Medical History Medical History Asthma Bipolar disorder Depression Endometriosis Gastric ulcer GERD (gastroesophageal reflux disease) Iron deficiency anemia Wears glasses Surgical History Surgical History H/O colonoscopy H/O endoscopy Family History Family History Mother High cholesterol Sibling Adverse reaction to anesthetic agent ADHD (attention deficit hyperactivity disorder) Depression Grandparent Ovarian cancer Social History Social History Social History: The patient is lives with her in [place]. She designates her , Ankit, as her surrogate decision maker and she wishes to be a full code. She is a lifelong nonsmoker and denies alcohol and drug abuse. 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 [employer] Gender identity (if verbalized by the patient): Female Spiritual care concerns: No Agree to blood products: Yes Course Vital Signs Vital signs: Vital Signs Temperature 36.9 C 02/01/23 12:26 Pulse Rate 103 H 02/01/23 12:26 Respiratory Rate 16 02/01/23 12:26 Blood Pressure 130/76 02/01/23 12:26 Pulse Oximetry 100 02/01/23 12:26 Oxygen Delivery Room Air 02/01/23 12:26 Temperature 36.9 C 02/01/23 12:26 Pulse Rate 88 02/01/23 16:15 Respiratory Rate 16 02/01/23 16:15 Blood Pressure 110/63 02/01/23 16:15 Pulse Oximetry 98 02/01/23 16:15 Oxygen Delivery Room Air 02/01/23 12:26 Medical Decision Making MDM Narrative Medical decision making narrative: THIS WAS THE MSE NOTE Vital Signs Vital Signs: Vital Signs Temperature 36.9 C 02/01/23 12:26 Pulse Rate 103 H 02/01/23 12:26 Respiratory Rate 16 02/01/23 12:26 Blood Pressure 130/76 02/01/23 12:26 Pulse Oximetry 100 02/01/23 12:26 Oxygen Delivery Room Air 02/01/23 12:26 Temperature 36.9 C 02/01/23 12:26 Pulse Rate 88 02/01/23 16:15 Respiratory Rate 16 02/01/23 16:15 Blood Pressure 110/63 02/01/23 16:15 Pulse Oximetry 98 02/01/23 16:15 Oxygen Delivery Room Air 02/01/23 12:26 Lab Data 02/01/23 14:22 02/01/23 14:22 Labs: Lab Results 02/01/23 02/01/23 02/01/23 Range/Units 14:17 14:22 14:33 WBC 11.5 H (4.5-10.0) K/mm3 RBC 4.52 (4.2-5.4) M/mm3 Hgb 9.1 L (12.0-15.0) g/dL Hct 31.7 L (37.0-47.0) % MCV
--- NOTE | 2023-02-01 13:32 | ED.NAVMDI ---
HPI - Nausea/Vomiting/Diarrhea General Chief complaint: Nausea/Vomiting/Diarrhea Stated complaint: diarrhea Time Seen by Provider: 02/01/23 13:32 Source: patient History of Present Illness HPI Narrative: 52 years old white female drove herself to the emergency room complaining of cold sweats and diarrhea started 3 days ago. Patient reports maximum 2 episodes of loose stool, watery, contain no blood over the last 3 days. Patient feeling tired and weak, she denies any fever, chills, nausea, vomiting, abdominal pain or back pain or chest pain or shortness of breath. Patient lives with asymptomatic family, works at [employer] with a lot of exposure to a lot of people. History of depression, anxiety and acid reflux Related Data Allergies Allergy/AdvReac Type Severity Reaction Status Date / Time albuterol Allergy Severe hives Verified 02/01/23 12:23 [From Proventil HFA] NSAIDS (Non-Steroidal AdvReac Unknown hx of Verified 02/01/23 12:23 Anti-Inflamma ulcers Review of Systems Review of Systems: All systems reviewed & are unremarkable except as noted in HPI and below PMFSH Past Medical History Medical History Asthma Bipolar disorder Depression Endometriosis Gastric ulcer GERD (gastroesophageal reflux disease) Iron deficiency anemia Wears glasses Surgical History Surgical History H/O colonoscopy H/O endoscopy Family History Family History Mother High cholesterol Sibling Adverse reaction to anesthetic agent ADHD (attention deficit hyperactivity disorder) Depression Grandparent Ovarian cancer Social History Social History Social History: The patient is lives with her in [place]. She designates her , Ankit, as her surrogate decision maker and she wishes to be a full code. She is a lifelong nonsmoker and denies alcohol and drug abuse. 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 Work-up today showed WBC of 11.5. H
[2023-02-01 14:01] VITALS: BP 114/74; PULSE 87; RESP 17
[2023-02-01 14:28] LABS: Basophils Percent Auto 0.3 % (0.2-1.2); Eosinophils Percent Auto 0.3 % (0-4.4); Hematocrit 31.7 % (37.0-47.0); Hemoglobin 9.1 g/dL (12.0-15.0); Immature Granulocyte Absolute 0.03 K/mm3 (0.00-0.031); Immature Granulocyte Percent A 0.3 % (0-0.5); Lymphocytes Absolute Auto 2.35 K/mm3 (0.9-3.2); Lymphocytes Percent Auto 20.5 % (18.3-44.2); Mean Corpuscular HGB Conc 28.7 g/dl (32-36); Mean Corpuscular Hemoglobin 20.1 pg (26-34); Mean Corpuscular Volume 70.1 fl (80-100); Mean Platelet Volume 9.3 fl (7.4-10.4); Monocytes Percent Auto 8.3 % (2.6-8.5); Neutrophils Absolute Auto 8.1 K/mm3 (1.3-6.7); Neutrophils Percent Auto 70.3 % (45.5-73.1); Platelet Count Result 487 k/mm3 (150-375); Red Blood Count 4.52 M/mm3 (4.2-5.4); Red Cell Distribution Width 18.6 % (11.5-14.5); White Blood Count 11.5 K/mm3 (4.5-10.0)
[2023-02-01] MEDS: SODIUM CHLORIDE 0.9% IV 1,000 ML 999 ML IV CONT ×2 (14:33→14:34)
[2023-02-01] MEDS: ONDANSETRON INJ 4 MG/2 ML VIAL IV PUSH (14:34)
[2023-02-01 14:39] LABS: Alanine Aminotransferase 14 U/L (6-35); Albumin Level 3.9 g/dL (3.5-5.1); Alkaline Phosphatase 76 U/L (38-126); Anion Gap 9 mmol/L (8-16); Aspartate Amino Transferase 21 U/L (14-36); Bilirubin,Total 0.7 mg/dL (0.2-1.3); Blood Urea Nitrogen 11 mg/dL (7-17); Calcium 8.7 mg/dL (8.4-10.2); Carbon Dioxide 27 mmol/L (22-30); Chloride 100 mmol/L (98-107); Estimated CRCL calculation 108 ml/min; Estimated Glomerular Filt Rate > 60; Glucose 116 mg/dL (65-110); Lipase 60 U/L (23-300); Potassium 3.5 mmol/L (3.4-5.0); Sodium 136 mmol/L (137-145)
[2023-02-01 14:48] LABS: Appearance Urine Cloudy (Clear); Bacteria Urine Rare /hpf; Bilirubin Urine Negative (Negative); Blood Urine 2+ (Negative); Color Urine Yellow (Yellow); Glucose Urine UA Negative (Negative); Ketones Urine 1+ mg/dL (Negative); Leukocyte Esterase Ur 2+ LEU/UL (Negative); Nitrate Urine Negative (Negative); Non Pathogenic Casts 0-2; Protein Urine Trace mg/dL (Negative); RBC Urine 0-2 /hpf (0-2); Specific Grav Ur 1.018 (1.001-1.035); Squamous Epithelial Cell Urine Few /hpf (Few); Urobilinogen Urine 0.2 mg/dL (<2.0); pH Urine 5.5 (5.0-9.0)
[2023-02-01 14:50] LABS: Add Urine Microscopic? YES
[2023-02-01 14:55] LABS: Platelet Estimate Increased (Adequate)
[2023-02-01 14:56] LABS: Anisocytosis 2+ (NORMAL); Hypochromasia 1+ (NORMAL); Ovalocytes 1+ (NORMAL); Schistocytes None Seen (NORMAL)
[2023-02-01 15:19] LABS: Influenza A QL RT-PCR Negative (Negative); Influenza B QL RT-PCR Negative (Negative); RSV RNA, RT-PCR Negative (Negative); SARS-CoV-2 RNA PCR Negative (Negative)
[2023-02-01 16:15] VITALS: BP 110/63; PULSE 88; RESP 16; O2SAT 98
== END 2023-02-01 16:26 | disposition home or self-care (01) ==
PROVIDERS: Emergency Medicine; Emergency Provider Emergency Medicine; PCP Family Medicine
DX: R53.1 Weakness (principal); R19.7 Diarrhea, unspecified; D50.9 Iron deficiency anemia, unspecified; D51.3 Other dietary vitamin B12 deficiency anemia; Z20.822 Contact with and (suspected) exposure to COVID-19; J45.909 Unspecified asthma, uncomplicated; K21.9 Gastro-esophageal reflux disease without esophagitis; N80.9 Endometriosis, unspecified; F31.9 Bipolar disorder, unspecified
CPT/HCPCS: 36415; 80053; 81001; 83690; 85025; 87086; 87088; 87637; 96361; 96365; 96375; 99284; J0696; J2405; J7030

== ENCOUNTER 2023-12-20 13:42 | Emergency (ER) | payer BC, SELFPAY ==
--- NOTE | ~2023-12-20 | XR_ITS ---
XR knee RT 3V 12/20/2023 14:35 Indication: Right knee pain Procedure: 3 views right knee Comparison: No prior studies for comparison. Findings: There is patellofemoral compartment osteoarthritis. No fracture or traumatic malalignment. No joint effusion. No foreign bodies. Impression: 1: Mild patellofemoral compartment osteoarthritis. Reviewed, dictated and finalized at location B. Impression: 1: Mild patellofemoral compartment osteoarthritis.
--- NOTE | ~2023-12-20 | US_ITS ---
EXAMINATION: US venous doppler LE RT DATE: 12/20/2023 14:28 INDICATION: Right lower limb pain TECHNIQUE: Grayscale ultrasound images without and with compression and Doppler ultrasound images of the right lower extremity veins were obtained. COMPARISON: None. FINDINGS: The visualized portions of right common femoral vein, profunda (deep) femoral vein, femoral vein, pop liteal vein, posterior tibial veins, peroneal veins and greater saphenous vein outflow are patent. IMPRESSION: 1. No deep venous thrombosis in the right lower limb. Reviewed, dictated and finalized at location A.
[2023-12-20 13:43] VITALS: BP 138/82; PULSE 85; RESP 16; TEMP 36.4; O2SAT 98
[2023-12-20 13:52] VITALS: BP 120/77; PULSE 86; TEMP 36.3; O2SAT 96
--- NOTE | 2023-12-20 14:00 | ED.GENADULT ---
HPI - General Adult General Chief complaint: Extremity Injury, Lower Stated complaint: R knee pain after dog ran into it Time Seen by Provider: 12/20/23 13:50 History of Present Illness HPI narrative: 53-year-old female presents to the emergency department for evaluation for right knee pain. Patient reports on Tuesday at dog ran into her right leg causing lower knee pain. Patient reports 2 nights ago her dog was lying on her leg and she has had worsening pain since. Patient reports increased pain with ambulation. Related Data Allergies Allergy/AdvReac Type Severity Reaction Status Date / Time albuterol Allergy Severe hives Verified 08/09/23 13:10 [From Proventil HFA] NSAIDS (Non-Steroidal AdvReac Unknown hx of Verified 08/09/23 13:10 Anti-Inflamma ulcers Review of Systems Review of Systems: All systems reviewed & are unremarkable except as noted in HPI and below PMFSH Past Medical History Medical History Asthma Bipolar disorder Depression Endometriosis Gastric ulcer GERD (gastroesophageal reflux disease) Iron deficiency anemia Wears glasses Surgical History Surgical History H/O colonoscopy H/O endoscopy Family History Family History Mother High cholesterol Sibling Adverse reaction to anesthetic agent ADHD (attention deficit hyperactivity disorder) Depression Grandparent Ovarian cancer Social History Social History Social History: The patient is lives with her in [place]. She designates her , Ankit, as her surrogate decision maker and she wishes to be a full code. She is a lifelong nonsmoker and denies alcohol and drug abuse. 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 HEAD: normocephalic, atraumatic. EYES: PERRLA/EOMI, conjunctivae clear. NOSE: Normal no drainage EARS:TMS clear with good light reflex. THROAT: Pharynx clear, no exudate. NECK: Supple. No adenopathy, no masses. RESPIRATORY: Airway patent, respirations nonlabored. Clear to auscultation bilaterally, no rales, rhonchi, wheezing. CARDIOVASCULAR: Regular rate and rhythm without murmurs rubs or gallops. ABDOMINAL: Soft, nontender, nondistended, normal bowel sounds MUSCULOSKELETAL: Right lower knee tenderness to palpation, right calf tenderness to palpation without erythema or edema. NEURO: Alert. Cranial nerves II through XII intact. Grossly intact SKIN: Warm, dry. Normal Color Course Course Emergency Course: Patient had negative imaging but was provided a knee immobilizer and crutches for limited weight-bearing to to pain with ambulation. Vital Signs Vital signs: Vital Signs Temperature 97.5 F L 12/20/23 13:43 Pulse Rate 85 12/20/23 13:43 Respiratory Rate 16 12/20/23 13:43 Blood Pressure 138/82 12/20/23 13:43 Pulse Oximetry 98 12/20/23 13:43 Oxygen Delivery Room Air 12/20/23 13:43 Temperature 97.4 F L 12/20/23 13:52 Pulse Rate 71 12/20/23 15:23 Respiratory Rate 16
[2023-12-20 15:23] VITALS: PULSE 71; O2SAT 100
== END 2023-12-20 15:26 | disposition home or self-care (01) ==
PROVIDERS: Emergency Provider Emergency Medicine; PCP Family Medicine
DX: M23.91 Unspecified internal derangement of right knee (principal); S89.91XA Unspecified injury of right lower leg, initial encounter; M79.661 Pain in right lower leg; J45.909 Unspecified asthma, uncomplicated; K21.9 Gastro-esophageal reflux disease without esophagitis; D50.9 Iron deficiency anemia, unspecified; N80.9 Endometriosis, unspecified; M17.11 Unilateral primary osteoarthritis, right knee; W54.1XXA Struck by dog, initial encounter
CPT/HCPCS: 73562; 93971; 99284

== ENCOUNTER 2024-04-12 11:07 | Outpatient (CLI) | payer BC, SELFPAY ==
[2024-04-12 12:05] LABS: Influenza A QL RT-PCR Negative (Negative); Influenza B QL RT-PCR Negative (Negative); RSV RNA, RT-PCR Negative (Negative); SARS-CoV-2 RNA PCR Negative (Negative)
[2024-04-12 14:53] LABS: Strep Group A RT-PCR NOT DETECTED (Negative)
== END 2024-04-12 11:08 | disposition home or self-care (01) ==
PROVIDERS: PCP Family Medicine; Visit Provider Family Medicine
DX: J02.9 Acute pharyngitis, unspecified (principal); J06.9 Acute upper respiratory infection, unspecified
CPT/HCPCS: 87637; 87651; 87880

== ENCOUNTER 2024-05-14 14:48 | Outpatient (CLI) | payer BC, SELFPAY ==
--- OUTSIDE RECORDS SUMMARY | 2024-05-14 15:42 | XMS_ITS | Clinical Summary ---
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 Gender Identity Not on file Sexual Orientation Not on file Plan of Treatment Health Maintenance Due Date Last Done Comments Hepatitis C Virus (HCV) Screening 1972 TdaP Immunization 1972 Hepatitis B Immunization (1 of 3 - 19+ 3-dose series) 08/03/1991 Pap Smear 1993 Cervical Cancer Screening (CCS) 2002 HPV/Cotest 2002 Colonoscopy 2017 Colorectal Cancer Screening 2017 Cologuard 2022 Immunochemical Fecal Occult Blood 2022 Mammogram 2022 Pneumococcal Immunization (5 0+ years) (1 of 1 - PCV) 2022 Zoster Immunization (1 of 2) 2022 Influenza Immunization (#1) 2023 SARS-COV-2 Immunization ( - season) 2023 Respiratory Syncytial Virus (RSV) Immunization (Adult) (1 - 1-dose 75+ series) 08/03/2047 Meningococcal Immunization (ACWY) Aged Out No longer eligible based on patient's age to complete this topic Pneumococcal Immunization Combined Aged Out No longer eligible based on patient's age to complete this topic Rotavirus Immunization Aged Out No lo nger eligible based on patient's age to complete this topic
--- OUTSIDE RECORDS SUMMARY | 2024-05-14 15:42 | XMS_ITS | Clinical Summary ---
Author Organization [facility] Address [address] [place] [address] Care Team Providers Care Site Lead Name Role Phone Deb Tanner MD Primary Care Provider [phone] Allergies Active Allergy Reactions Criticality Noted Date Comments Albuterol Sulfate Hives High 06/25/2021 Medications pantoprazole (PROTONIX) 40 mg Tablet, Delayed Release (E.C.) 2 Active montelukast (SINGULAIR) 10 mg tablet 2 Active busPIRone (BUSPAR) 10 mg tablet TAKE 1 TABLET BY MOUTH 3 TIMES A DAY 2 Active FLUoxetine (PROzac) 60 mg tablet Take 60 mg by mouth daily. 1 Active Syringe with Needle, Disp, (BD SafetyGlide Syringe) 1 mL 27 x 1/2 SyringeIndicati ons:Anemia due to vitamin B12 deficiency, unspecified B12 deficiency type USE WITH B-12 INJECTIONS. 1 Each 1 4 Active cyanocobalamin (VITAMIN B-12) 1,000 mcg/mL SolutionIndicat ions:Anemia due to vitamin B12 deficiency, unspecified B12 deficiency type Inject 1 mL (1,000 mcg) by intramuscular injection every 30 days. 3 mL 4 Active Active Problems Problem Noted Date Diagnosed Date Vitamin B12 deficiency (non anemic) 08/09/2022 Reactive thrombocytosis 06/25/2021 Encounters Date Type Department Care Team Description 05/09/2024 External Device Data [facility] ABSTRACTION Provider, Abstract 05/08/2024 External Device Data [facility] ABSTRACTION Provider, Abstract 05/01/2024 External Device Data [facility] ABSTRACTION Provider, Abstract 03/13/2024 4:30 PM INSTRUCTION ASSISTANT PRINCIPAL Telephone Check Up [facility] Oncology and Hematology [facility] [address] [place] [address] Manpreet Davis MD Iron deficiency anemia, unspecified iron deficiency anemia type (Primary Dx); Anemia due to vitamin B12 deficiency, unspecified B12 deficiency type 03/13/2024 Orders Only [facility]ematology [facility] [address] [place] [address] Manpreet Davis MD from Last 3 Months Family History Relation Name Status Comments Father Alive Mother Alive Sister Alive Social History Tobacco Use Types Packs/Day Years Used Date Smoking Tobacco: Never Smokeless Tobacco: Never Tobacco Cessation:Counseling Given: Not Answered Alcohol Use Standard Drinks/Week Comments Yes 0 (1 standard drink = 0.6 oz pur e alcohol) occasional Comments Unknown Sex and Gender Information Value Date Recorded Sex Assigned at Not on file Legal Sex Female 1:45 PM INSTRUCTION ASSISTANT PRINCIPAL Gender Identity Not on file Sexual Orientation Not on file Last Filed Vital Signs Vital Sign Reading Time Taken Comments Blood Pressure 121/75 09/30/2023 11:52 AM CDT Pulse 92 09/30/2023 11:52 AM CDT Temperature 35.9 ??C (96.6 ??F) 09/30/2023 11:52 AM C DT Respiratory Rate 14 09/30/2023 11:52 AM CDT Oxygen Saturation 95% 09/30/2023 11:52 AM CDT Inhaled Oxygen Concentration - - Weight 105.7 kg (233 lb) 09/30/2023 11:52 AM CDT Height 160 cm (5' 3 ) 10/27/2021 11:42 AM CDT Body Mass Index 41.27 10/27/2021 11:42 AM CDT Plan of Treatment Upcoming Encounters Date Type Department Care Team (Late st Contact Info) Description 06/20/2024 2:45 PM INSTRUCTION ASSISTANT PRINCIPAL Office Visit [facility] Oncology [facility] Hematology [facility] [address] [place] [address] Manpreet Davis MD [address] [facility] [address] [place] [address] Health Maintenance Due Date Last Done Comments Pre-Diabetes and Diabetes Screening 1972 DTAP/TDAP/TD VACCINES (1 - Tdap) 08/03/1991 HEPATITIS B VACCINES (1 of 3 - 19+ 3-dose series) 08/03/1991 CERVICAL CANCER SCREENING 2002 BREAST CANCER SCREENING 2012 COLORECTAL SCREENING 2017 Colorectal Cancer Screening 2017 FIT-DNA Q 3 years 2017 FIT/FOBT Q 1 year 2017 Flex Sig/CT Colonography Q 5 years 2017 ZOSTER VACCINE (1 of 2) 2022 INFLUENZA VACCINE (#1) 2023 PNEUMOCOCCAL VACCINE 0-64 YEARS Aged Out No longer eligible based on patient's age to complete this topic Procedures Procedure Name Priority Date/Time Associated Diagnosis Comments CBC WITH DIFFERENTIAL Routine 03/12/2024 11:47 AM INSTRUCTION ASSISTANT PRINCIPAL IRON LEVEL Routine 03/12/2024 11:38 AM INSTRUCTION ASSISTANT PRINCIPAL from Last 3 Months Results * CBC WITH DIFFERENTIAL (03/12/2024 11:47 AM INSTRUCTION ASSISTANT PRINCIPAL) Blood Manpreet Davis MD HEMATOLOGY ORDERABLES Final Res ult * IRON LEVEL (03/12/2024 11:38 AM INSTRUCTION ASSISTANT PRINCIPAL) Blood Manpreet Davis MD CHEMISTRY ORDERABLES Final Resu lt from Last 3 Months Insurance BCBS BLUE ACCESS/TRUE BLUE PPO [facility] BLUE ACCESS/TRUE BLUE PPO Care Teams Site Lead Relationship Specialty Start Date End Date Deb Tanner MD [address] [place] [address] PCP - General Family Practice 06/25/21
--- OUTSIDE RECORDS SUMMARY | 2024-05-14 15:42 | XMS_ITS | Data Portability ---
Author Organization [facility] Address [address] [place] [address] Care Team Providers Care Lay Out And Detail Drafter Name Role Phone SETH CARDOZO Primary Care Provider Assessment Encounter Date Assessment Date Assessment LastModified by Organization Details LastModified Time 06/08/2021 06/08/2021 suspect perimenopausal, but discussed need to r/o hyperplasia or malignancy of endometrium will schedule US will do EMB with FU visit will start [employer] jillian for libido discussed either antidepressants or HRT for symptomatic treatment of menopause. May not have estrogen until EMB benign, and does not have hotflashes yet. encouraged to contact PCP or maybe get psych consult re irritability since already on high dose prozac. WWE scheduled next month [email or web address] Not available 06/08/2021 15:40:29 06/19/2021 06/19/2021 Discussed US results in depth. Left ovarian cyst simple and should not require follow up unless sx. Should resolve. Discussed nabothian cysts also. EMB done, will contact with results. [email or web address] Not available 06/22/2021 20:00:27 Plan of Treatment Reminders Order Date Submit Date Provider Last Modified By Organization Details Last Modified Time Details Appointments None recorded. Lab None recorded. Referral None recorded. Procedures None recorded. Surgeries None recorded. Imaging US, pelvis 2021 022 [facility] [address], [address], [place], [address], 15:38:58 [facility] l [facility] [address], [address], [place], [address], 16:00:11 Medication Orders None recorded. Patient TargetsNo targets recorded. Patient InstructionsNo instructions recorded. Reason for Referral None Reported. Results Created Date Observation Date Name Description Value Unit Range Abnormal Flag Note LastModifiedBy Organization Detail LastModifiedTime 06/20/19 22 06/19/2021 SURGI PRISCILLA PATHO LOGY surgical pathology SEE RESULT S BELOW CASE REPOR T: Surgi priscilla Patho logy Repor t Case: [id number] Autho maya taylor Provi chuck: Briseida Parker MD Colle cted: 06/19 1520 Order ing Locat ion: [place] Patho log[facility] Recei [place]: 06/20 0128 Patho logis t: Isabelle Mercado MD Speci men: Endom etriu m, EMB FINAL DIAGN OSIS: Endom etria l biops y: -Inac tive endom etriu m. -Endo cervi priscilla tissu e with react gordon mayes es. -No hyper plasi a or evide nce of william hurd ident ified . Elect lemuel escalante by Isabelle Mercado MD on 022 at 3:23 PM ----- ----- ----- ----- ----- ----- ----- ----- ----- ----- ----- ----- ----- ----- ----- ----- ----- ---- CLINI PRISCILLA INFOR MATIO N: not provi ded MICRO SCOPI C DESCR IPTIO N: A micro scopi c exami natio n was perfo rmed. GROSS DESCR IPTIO N: A. Endom etriu m. The speci men is label ed with the patie nt's name, demog julio cs and EMB . Recei [place] in forma faustino is a 1.0 x 0.3 x 0.1 [address] of minut e diaz tissu e and mucoi d mater ial. The entir e speci men is submi tted in one casse tte. Gross ed by Selvin Pittman Not Available [facility] (Lab) [address], [place], [address], 06/22/2021 16:26:25 06/17/19 22 06/16/2021 US, pelvi s No observ ation record ed. [email or web address] [address], [place], [address], 06/16/2021 15:59:55 06/17/19 22 06/16/2021 US, trans vagin al No observ ation record ed. [email or web address] [place] [address], [place], [address], 06/16/2021 16:00:11 06/17/19 22 06/16/2021 US, pelvi s No observ ation record ed. lee ann Erika [address], [place], [address], 06/23/2021 11:37:40 Result Notes None recorded. Problems Name Problem SNOMED Code Status Onset Date Resolution Date Notes Provider Name and Address Organization Details Recorded Time Finding of regulari ty of menstrua l cycle Completed 201706/08/2021 Irregula r bleeding ;Recorde d Elsewher e: No [facility]: EHR Taker Down juan: N Dav ce ID: [id number] Adrian lable Time: 11:15:00 AM MD [address], [place], [address], [facility] 15:06:32 Pregnanc y test negative [id number] Completed 201706/08/2021 Encounte r for pregnanc y test, result negative ;Recorde d Elsewher e: No Locat ion: [facility] S ource: EHR Taker Down juan: N Dav ce ID: 0001 Adrian lable Time: 11:15:00 AM Briseida Lenz MD [address], [place], [address], [facility] [address] 15:06:[address] Concept Completed 201706/08/2021 Encntr for master fisher exam (general ) (routine ) w/o abn findings ;Recorde d Elsewher e: No Locat ion: [facility] S ource: EHR Taker Down juan: N Practi ce ID: 0001 Adrian lable Time: 11:15:00 AM Briseida Lenz MD [address], [place], [address], [facility] 2 15:06:36 Body mass index 40+ - severely obese 830060885 Active 2021 Briseida Lenz MD [address], [place], [address], [facility] 2 15:40:19 Problem Notes None recorded. Procedures Surgical History Date Name Laterality Status Provider Name and Address Organization Details Recorded Time 06/20/19 Endometrial Biopsy completed Briseida Lenz MD [address], [place], [address], [facility] 06/22/2021 19:59:18 07/14/19 18 Date of Last Pap Smear completed Tashia Mckeon [facility] 06/08/2021 15:07:08 Imaging Results Imaging Date Name Status LastModified by Organization Details LastModified Time 06/16/2021 US, pelvis completed [email or web address] Mike [address], [place], [address], 06/16/2021 15:59:55 06/16/2021 US, transvaginal completed [email or web address] [address], [place], [address], 06/16/2021 16:00:11 06/16/2021 US, pelvis completed layran [address], [place], [address], 06/23/2021 11:37:40 Procedure Notes None recorded. Medical Equipment None Reported. Allergies Allergen ID Allergen Name Allergen Category Reaction Reaction Severity Criticality Documentation Date Start Date Code Code System Note Provider Name and Address Organization Details Recorded Time albuterol medicatio n Not available Not available Not available 06/08/2021 435 RxNorm Tashia chanel [place] - [facility] 2 15:06:07 Medications Name Sig Start Date Stop Date Status Note LastModified by Organization Details LastModified Time prednison e 10 mg tablet PLEASE SEE ATTACHED FOR DETAILED DIRECTIO NS active Not Available Not Available No t Available pantopraz ole 40 mg tablet,de layed release TAKE 1 TABLET BY MOUTH TWICE A DAY active Not Available Not Available No t Available buspirone 10 mg tablet TAKE 1 TABLET BY MOUTH 3 TIMES A DAY active Not Available Not Available No t Available fluoxetin e 10 mg capsule take 1 Capsule by oral route every day 06/08 completed Prescrib ed Elsewher e: Yes Loca tion: [facility] M odify By: tracey Gorete r DateTime : 07/14/19 18 11:15:00 AM Not Available Not Available Not Available monteluka st 10 mg tablet TAKE 1 TABLET BY MOUTH EVERY DAY active Not Available Not Available No t Available ranitidin e 150 mg capsule take 1 capsule by oral route 2 times every day 06/08 completed Prescrib ed Elsewher e: Yes Loca tion: [facility] M odify By: tracey Encounte r DateTime : 07/14/19 18 11:15:00 AM Not Available Not Available Not Available albuterol sulfate HFA 90 mcg/actua tion aerosol inhaler active Not Available Not Available Not Available Singulair active Not Available Not Ashley ilable Not Available Prozac active Not Available Not Availa ble Not Available buspirone active Not Available Not Ashley ilable Not Available Protonix active Not Available Not Avai lable Not Available fluoxetin e 60 mg tablet TAKE 1 TABLET BY MOUTH EVERY DAY active Not Available Not Available No t Available Vitals Date Recorded Body height Body mass index (BMI) Body weight Systolic blood pressure Diastolic blood pressure Provider Name and Address Organization Details Last Updated DateTime 06/08/2021 160.02 cm 42.3 kg/m2 151849.5 8 g 132 mm[Hg] 84 mm[Hg] [facility] 2 15:03:03 Date Recorded Body height Body mass index (BMI) Body weight Systolic blood pressure Diastolic blood pressure Provider Name and Address Organization Details Last Updated DateTime 06/19/2021 160.02 cm 41.8 kg/m2 986179.8 g 130 mm[Hg] 84 mm[Hg] [facility] 14:06:28 Social History Question Answer Notes LastModified by Organizat ion Details LastModified Time Tobacco Smoking Status Never Smoker [facility] 06/08/2021 14:41:15 What Is Your Level Of Alcohol Consumption? Occasional Information not available 06/08/2021 Have You Been To An Area Known To Be High Risk For COVID-19? No Information not available 06/08/2021 Have You Ever Been Counseled For Unhealthy Alcohol Use? No Information not available 06/08/2021 Do You Use Any Illicit Or Recreational Drugs? No Information not available 06/08/2021 Has Tobacco Cessation Counseling Been Provided? No Information not available 06/08/2021 Do You Or Have You Ever Used Any Other Forms Of Tobacco Or Nicotine? No Information not available 06/08/2021 Sex: Unknown Functional Status None recorded. Mental Status None recorded. Family History Relationship Description Onset Age of this Age Resolved Age Notes LastModified by Organization Details LastModified Time Mother Hypercholest erolemia [email or web address] Not available 2021 14:41:51 Mother Hypertensive disorder [email or web address] Not available 2021 14:41:58 Maternal Grandmother Anemia [email or web address] Not available 2021 15:03:19 Medical History Condition Response Allergies (Food, seasonal, environmental ) N Other N Breast Cancer N Drug/Latex Allergies/Reactions N Blood Transfusion N Dermatologic Disorders N Lung Disease N Defects or Inherited Disease N Breast Problem N Gestational Diabetes N Hematologic disorders N Anesthesia Complications N History of STI N Deep Vein Thrombosis N Polycystic ovary syndrome N Anxiety Disorder Y Autoimmune disease N Arthritis N Infertility Y Polyps N Acid Reflux (GERD) N History of abnormal pap N Cancer N Stroke N Varicosities N Neurologic/Epilepsy N Endometriosis N High Cholesterol N Headaches N Fibromyalgia N Kidney Disease N Heart Problems N Kidney or Bladder Problems N Thyroid Problems N GI Problems N Eating Disorder N Anemia Y Art (IVF or FET) N Psychiatric Illness Y Ovarian Cancer N Diabetes N Pulmonary (TB, Asthma) N Hepatitis/Liver Disease N No Past Medical History N Eczema N Urinary Tract Infection N Abuse/Domestic Violence N Asthma Y Trauma/Violence N Depression/ depression N Heart Disease N Pre-Eclampsia N Hypertension N Osteoporosis N Thrombophilias N Gynecological History Statement/Question Response Age of first menstrual cycle 13 Date of Last Pap Smear 07/13/2017 Current Control Method None Date of LMP 04/08/2021 Obstetrics History GPAL:G 0 P 0 0 0 0 Past Encounters Encounter ID Performer Location Encounter Start Date Encounter Closed Date Diagnosis/Indication Diagnosis SNOMED-CT Code Diagnosis ICD10 Code Diagnosis Note [id number] Briseida Lenz MD [facility] [address] [address] 06/08/2021 14:24:15 06/08/2021 15:47:12 Menometrorrhagia 180528874 N92.1 Mood disorder 04615626 F 41 Reduced libido 1807871 R 68.82 Body mass index 40+ - severely obese 044549953 Z68.41 [id number] Bharti Alberto [facility] [address],[place] [address] 06/16/2021 14:33:50 06/16/2021 15:27:22 Menometrorrhagia 612169460 N92.1 [id number] Briseida Lenz MD [facility] [address],[place] [address] 06/19/2021 13:30:04 06/23/2021 16:29:58 Menometrorrhagia 694052720 N92.1 Cyst of left ovary 33577 67832 3997914 N83.202 Health Concerns Section Related Observation LastModified by Organization Marcos maldonado LastModified Time None Recorded Concern Status LastModified by Organization Details LastModified Time None Recorded Advance Directives Directive None Recorded Payers Encounter Date Sequence Insurance Name Policy Number Policy Roman Covered Member ID Roman Member ID Guarantor Name 06/08/2021 1 [place] [id number] Erika Acevedo [id number] Evelina Acevedo 06/16/2021 1 [place] [id number] Erika Acevedo [id number] Evelina Acevedo 06/19/2021 1 [place] [id number] Erika Acevedo [id number] Evelina Acevedo Notes Date Note Type Note Provider Name and Address Organization Details Recorded Time 06/08/2021 text/html Patient is a 50y o G0 who presents for menometrorrhagia. She is sexually active. Menses: over the last year skipping 2-3 mos at a time, has had 4-5 in the last year, last Mar 2021. They are also becoming much heavier and longer and crampier. Bleeds 7-8 days, most heavy, soaking pads in an hour. Cramping much worse also. Also decreased libido and irritability. Denies hot flashes and night sweats. She has anxiety and depression and is on 60mg prozac and buspar. Concerns: last WWE:2018 Depression:stable on meds Domestic violence:denies Briseida Lenz MD [address], [place], [address], [facility] 06/08/2021 15:40:45 06/19/2021 text/html 50yo here for follow up menometrorrhagia. US this week showed heterogeneous uterus, otherwise normal, and left ovary with a 4cm simple cyst. Also nabothian cysts. needs EMB. Briseida Lenz MD [address], [place], [address], [facility] 06/22/2021 20:00:51 OBGyn Episode No OBEpisode recorded.
[2024-05-14 15:44] LABS: Influenza A QL RT-PCR Negative (Negative); Influenza B QL RT-PCR Negative (Negative); RSV RNA, RT-PCR Negative (Negative); SARS-CoV-2 RNA PCR Negative (Negative)
== END 2024-05-14 14:49 | disposition home or self-care (01) ==
LOC: ANHLAB 14:50
PROVIDERS: PCP Family Medicine; Visit Provider Family Medicine
DX: J06.9 Acute upper respiratory infection, unspecified (principal); J02.9 Acute pharyngitis, unspecified; Z20.822 Contact with and (suspected) exposure to COVID-19
CPT/HCPCS: 87081; 87637

== ENCOUNTER 2024-06-28 00:40 | Day surgery (SDC) | payer BC, SELFPAY ==
[2024-06-19 12:28] VITALS: BMI 38.7
--- OUTSIDE RECORDS SUMMARY | 2024-06-28 00:42 | XMS_ITS | Data Portability ---
Author Organization [facility] Address [address] [place] [address] [address] [place] [address] Care Team Providers Care Rib Cloth Knitter Name Role Phone SETH CARDOZO Primary Care Provider Assessment Encounter Date Assessment Date Assessment LastModified by Organization Details LastModified Time 06/08/2021 06/08/2021 suspect perimenopausal, but discussed need to r/o hyperplasia or malignancy of endometrium will schedule US will do EMB with FU visit will start [employer] jillian for libido discussed either antidepressants or HRT for symptomatic treatment of menopause. May not have estrogen until EMB benign, and does not have hotflashes yet. encouraged to contact PCP or maybe get psych consult re irritability since already on high dose prozac. WWE scheduled next month [email or web address] Not available 06/08/2021 15:40:29 06/19/2021 06/19/2021 Discussed US results in depth. Left ovarian cyst simple and should not require follow up unless sx. Should resolve. Discussed nabothian cysts also. EMB done, will contact with results. [email or web address] Not available 06/22/2021 20:00:27 Plan of Treatment Reminders Order Date Submit Date Provider Last Modified By Organization Details Last Modified Time Details Appointments None recorded. Lab None recorded. Referral None recorded. Procedures None recorded. Surgeries None recorded. Imaging US, pelvis 2021 022 [facility], [address], [address], [place], [address], 15:38:58 [facility] [address], [address], [place], [address], 16:00:11 Medication Orders None recorded. Patient TargetsNo [...] Gross ed by Selvin Pittman Not Available [facility] (Lab) [address], [place], [address], 06/22/2021 16:26:25 06/17/19 22 06/16/2021 US, pelvi s No observ ation record ed. [email or web address] [address], [place], [address], 06/16/2021 15:59:55 06/17/19 22 06/16/2021 US, trans vagin al No observ ation record ed. [email or web address] [address], [place], [address], 06/16/2021 16:00:11 06/17/19 22 06/16/2021 US, pelvi s No observ ation record ed. lee ann Erika [address], [place], [address], 06/23/2021 11:37:40 Result Notes None recorded. Problems Name Problem SNOMED Code Status Onset Date Resolution Date Notes Provider Name and Address Organization Details Recorded Time Finding of regulari ty of menstrua l cycle Completed 201706/08/2021 Irregula r bleeding ;Recorde d Elsewher e: No [facility]: E[facility] Meat Specialist juan: N Dav ce ID: [id number] Adrian lable Time: 11:15:00 AM MD [address], [place], [address], [facility] 15:06:32 Pregnanc y test negative [id number] Completed 201706/08/2021 Encounte r for pregnanc y test, result negative ;Recorde d Elsewher e: No Locat ion: [facility] S ource: EHR Meat Specialist juan: N Dav ce ID: [id number] Adrian lable Time: 11:15:00 AM Briseida Lenz MD [address], [place], [address], [facility] [address] 15:06:[address] Concept Completed 201706/08/2021 Encntr for capsule maker exam (general ) (routine ) w/o abn findings ;Recorde d Elsewher e: No Locat ion: [facility] S ource: EHR Meat Specialist juan: N Practi ce ID: [id number] Adrian lable Time: 11:15:00 AM Briseida Lenz MD [address], [place], [address], [facility] 2 15:06:36 Body mass index 40+ - severely obese 319097039 Active 2021 Briseida Lenz MD [address], [place], [address], [facility] 2 15:40:19 Problem Notes None recorded. Procedures Surgical History Date Name Laterality Status Provider Name and Address Organization Details Recorded Time 06/20/19 Endometrial Biopsy completed Briseida Lenz MD [address], [place], [address], [facility] 06/22/2021 19:59:18 07/14/19 18 Date of Last Pap Smear completed Tashia Mckeon [facility] 06/08/2021 15:07:08 Imaging Results Imaging Date Name Status LastModified by Organization Details LastModified Time 06/16/2021 US, pelvis completed [email or web address] Mike [address], [place], [address], 06/16/2021 15:59:55 06/16/2021 US, transvaginal completed [email or web address] [address], [place], [address], 06/16/2021 16:00:11 06/16/2021 US, pelvis completed layran Erika [address], [place], [address], 06/23/2021 11:37:40 Procedure Notes None recorded. Medical Equipment None Reported. Allergies Allergen ID Allergen Name Allergen Category Reaction Reaction Severity Criticality Documentation Date Start Date Code Code System Note Provider Name and Address Organization Details Recorded Time albuterol medicatio n Not available Not available Not available 06/08/2021 435 RxNorm Tashia chanel [place] - [facility] 2 15:06:07 Medications Name Sig Start [...] Prescrib ed Elsewher e: Yes Loca tion: [facility] M odify By: tracey Gorete r DateTime : 07/14/19 18 11:15:00 AM Not Available Not Available Not Available monteluka st 10 mg tablet TAKE 1 TABLET BY MOUTH EVERY DAY active Not Available Not Available No t Available ranitidin e 150 mg capsule take 1 capsule by oral route 2 times every day 06/08 completed Prescrib ed Elsewher e: Yes Loca tion: [facility] M odify By: tracey Encounte r [...] Updated DateTime 06/08/2021 160.02 cm 42.3 kg/m2 652697.5 8 g 132 mm[Hg] 84 mm[Hg] [facility] 2 15:03:03 Date Recorded Body height Body mass index (BMI) Body weight Systolic blood pressure Diastolic blood pressure Provider Name and Address Organization Details Last Updated DateTime 06/19/2021 160.02 cm 41.8 kg/m2 605840.8 g 130 mm[Hg] 84 mm[Hg] [facility] 14:06:28 Social History Question Answer Notes LastModified by Organizat ion Details LastModified Time Tobacco Smoking Status Never Smoker [facility] 06/08/2021 14:41:15 What Is Your [...] SNOMED-CT Code Diagnosis ICD10 Code Diagnosis Note [id number] Briseida Lenz MD [facility] [address] [address] 06/08/2021 14:24:15 06/08/2021 15:47:12 Menometrorrhagia 369197757 N92.1 Mood disorder 89083183 F 39 Reduced libido 8948268 R 68.82 Body mass index 40+ - severely obese 586509251 Z68.41 [id number] [place] [facility] [address] [address] 06/16/2021 14:33:50 06/16/2021 15:27:22 Menometrorrhagia 599395823 N92.1 [id number] Briseida Lenz MD [facility] [address] [address] 06/19/2021 13:30:04 06/23/2021 16:29:58 Menometrorrhagia 295735505 N92.1 Cyst of left ovary 83162 10045 5585251 N83.202 Health Concerns Section Related Observation LastModified by Organization Marcos maldonado LastModified Time None Recorded Concern Status LastModified by Organization Details LastModified Time None Recorded Advance Directives Directive None Recorded Payers Encounter Date Sequence Insurance Name Policy Number Policy Roman Covered Member ID Roman Member ID Guarantor Name 06/08/2021 1 [place] [id number] Erika Acevedo [id number] Evelina Acevedo 06/16/2021 1 [place] [id number] Erika Acevedo [id number] Evelina Acevedo 06/19/2021 1 [place] [id number] Erika Acevedo [id number] Evelina Acevedo Notes Date Note Type [...] violence:denies Briseida Lenz MD [address], [place], [address], [facility] 06/08/2021 15:40:45 06/19/2021 text/html 50yo here for follow up menometrorrhagia. US this week showed heterogeneous uterus, otherwise normal, and left ovary with a 4cm simple cyst. Also nabothian cysts. needs EMB. Briseida Lenz MD [address], [place], [address], [facility] 06/22/2021 20:00:51 OBGyn Episode No OBEpisode recorded.
--- OUTSIDE RECORDS SUMMARY | 2024-06-28 00:42 | XMS_ITS | Clinical Summary ---
Author Organization [facility] Care Team Providers Care Manager Camp Name Role Phone Unavailable Primary Care Provider Unavailabl e Social History Tobacco Use Types Packs/Day Years Used Date Smoking Tobacco: Never Assessed Comments Unknown Sex and Gender Information Value Date Recorded Sex Assigned at Not on file Legal Sex Female 10:59 AM POND SAWYER Gender Identity Not on file Sexual Orientation [...]
--- OUTSIDE RECORDS SUMMARY | 2024-06-28 00:42 | XMS_ITS | Clinical Summary ---
[facility] Organization [facility] Address [address] [place] [address] Care Team Providers Care Underwriting Service Representative Name Role Phone Deb Tanner MD Primary Care Provider [phone] Allergies Active Allergy Reactions Criticality Noted Date Comments Albuterol Sulfate Hives High 06/25/2021 Medications pantoprazole (PROTONIX) 40 mg Tablet, Delayed Release (E.C.) 06/25/19 22 Active montelukast (SINGULAIR) 10 mg tablet 06/18/19 22 Active busPIRone (BUSPAR) 10 mg tablet TAKE 1 TABLET BY MOUTH 3 TIMES A DAY 05/11/19 22 Active FLUoxetine (PROzac) 60 mg tablet Take 60 mg by mouth daily. 04/10/20 21 Active cyanocobalamin (VITAMIN B-12) 1,000 mcg/mL SolutionIndica tions:Anemia due to vitamin B12 deficiency, unspecified B12 deficiency type INJECT 1 ML (1,000 MCG) BY INTRAMUSCULAR INJECTION EVERY 30 DAYS 3 mL 06/12/19 25 Active Syringe with Needle, Disp, (BD SafetyGlide Syringe) 1 mL 27 x 1/2 SyringeIndicat ions:Anemia due to vitamin B12 deficiency, unspecified B12 deficiency type USE WITH B-12 INJECTIONS. 3 Each 06/22/19 25 Active Syringe with Needle, Disp, (BD SafetyGlide Syringe) 1 mL 27 x 1/2 SyringeIndicat ions:Anemia due to vitamin B12 deficiency, unspecified B12 deficiency type USE WITH B-12 INJECTIONS. 1 Each 1 03/13/20 24 2024 Discontinued cyanocobalamin (VITAMIN B-12) 1,000 mcg/mL SolutionIndica tions:Anemia due to vitamin B12 deficiency, unspecified B12 deficiency type Inject 1 mL (1,000 mcg) by intramuscular injection every 30 days. 3 mL 03/13/20 24 2024 Discontinued Active Problems Problem Noted Date Diagnosed Date Vitamin B12 deficiency (non anemic) 08/09/2022 Reactive thrombocytosis 06/25/2021 Encounters Date Type Department Care Team Description 06/23/2024 External Device Data STL ABSTRACTION Provider, Abstract 06/22/2024 External Device Data STL ABSTRACTION Provider, Abstract 06/21/2024 Refill [facility] [address] [place] [address] Manpreet Davis MD Anemia due to vitamin B12 deficiency, unspecified B12 deficiency type 06/19/2024 External Device Data STL ABSTRACTION Provider, Abstract 06/12/2024 Refill [facility] [address] [place] [address] Manpreet Davis MD Anemia due to vitamin B12 deficiency, unspecified B12 deficiency type 06/05/2024 External Device Data STL ABSTRACTION Provider, Abstract 06/01/2024 Abstract [facility] [address] [place] [address] Manpreet Davis MD 05/29/2024 Abstract [facility] [address] [place] [address] Manpreet Davis MD 05/09/2024 External Device Data STL ABSTRACTION Provider, Abstract 05/08/2024 External Device Data STL ABSTRACTION Provider, Abstract 05/01/2024 External Device Data STL ABSTRACTION Provider, Abstract from Last 3 Months Family History Relation [...] on file Legal Sex Female 1:45 PM GROUNDS PERSON Gender Identity Not on file Sexual Orientation Not on file Last Filed Vital Signs Vital Sign Reading Time Taken Comments Blood Pressure 121/75 09/30/2023 11:52 AM CDT Pulse 92 09/30/2023 11:52 AM CDT Temperature 35.9 C (96.6 F) 09/30/2023 11:52 AM CDT Respiratory Rate 14 09/30/2023 11:52 AM CDT Oxygen Saturation 95% 09/30/2023 11:52 AM CDT Inhaled Oxygen Concentration - - Weight 105.7 kg (233 lb) 09/30/2023 11:52 AM CDT Height 160 cm (5' 3 ) 10/27/2021 11:42 AM CDT Body Mass Index 41.27 10/27/2021 11:42 AM CDT Plan of Treatment Upcoming Encounters Date Type Department Care Team (Late st Contact Info) Description 09/24/2024 2:15 PM CDT Office Visit [facility] [place] [address] [place] [address] [address] [place] [address] Manpreet Davis MD [address] [facility] [address] [place] [address] Health Maintenance Due Date Last Done Comments Pre-Diabetes and Diabetes Screening 1972 DTAP/TDAP/TD VACCINES (1 - Tdap) 08/03/1991 HEPATITIS B VACCINES (1 of 3 - 19+ 3-dose series) 07/17 CERVICAL CANCER SCREENING 2002 BREAST CANCER SCREENING 2012 COLORECTAL SCREENING 2017 Colorectal Cancer Screening 2017 FIT-DNA Q 3 years 2017 FIT/FOBT Q 1 year 2017 Flex Sig/CT Colonography Q 5 years 2017 ZOSTER VACCINE (1 of 2) 2022 INFLUENZA VACCINE (#1) 2023 Preventative Visit- Commercial 04/18/2024 Insurance BCBS BLUE ACCESS/TRUE BLUE PPO BCBS BLUE ACCESS/TRUE BLUE PPO Care Teams Underwriting Service Representative Relationship Specialty Start Date End Date Deb Tanner MD [address] [place] [address] PCP - General Family Practice 06/25/21
[2024-06-28 12:21] VITALS: BP 143/87; PULSE 94; RESP 16; TEMP 36.4; O2SAT 98; BMI 41.1
[2024-06-28] MEDS: LACTATED RINGERS 1,000 ML 150 ML IV CONT (12:30)
--- NOTE | 2024-06-28 12:37 | WPDANESEPPF ---
Anes - Initial Pre Proc Eval Procedure: Operation Date: 06/28/24 13:30 Proposed Procedures p Esophagogastroduodenoscopy & Colonoscopy - Haile Pandey MD Date/Time: 06/28/24 12:37 Surgeon: Haile Pandey MD Pre Op Diagnosis: anemia,GERD,diaphragmatic hernia Patient Data Age: 53 Gender: F Height: 1.57 m Weight: 102.1 kg Last Vital Signs Temp 36.4 C L 06/28/24 12:21 Pulse 94 06/28/24 12:21 Resp 16 06/28/24 12:21 BP 143/87 H 06/28/24 12:21 Pulse Ox 98 06/28/24 12:21 O2 Del Method Room Air 06/28/24 12:21 Allergies Allergy/AdvReac Type Severity Reaction Status Date / Time albuterol (From Proventil Allergy Severe hives Verified 05/21/24 11:07 HFA) NSAIDS (Non-Steroidal AdvReac Unknown hx of Verified 05/21/24 11:07 Anti-Inflamma ulcers Home Medications ?Medication ?Instructions ?Recorded ?Confirmed ?Type albuterol sulfate 90 mcg/actuation 1 inh inhalation Q4H PRN shortness 10/28/21 06/28/24 Rx aerosol inhaler (ProAir HFA) of breath or wheezing #8.5 grams buspirone 10 mg tablet 10 mg PO TID #270 tabs 07/03/23 06/28/24 Rx fluoxetine 60 mg tablet 60 mg PO DAILY #90 tabs 12/29/23 06/28/24 Rx pantoprazole 40 mg tablet,delayed 40 mg PO BID #180 tabs 03/21/24 06/28/24 Rx release (Protonix) montelukast 10 mg tablet See Rx Instructions .Route 05/02/24 06/28/24 Rx .COMPLEX #90 tabs ondansetron 8 mg disintegrating 8 mg PO Q12H #14 tabs 06/06/24 06/28/24 Rx tablet aspirin 81 mg capsule 81 mg PO DAILY 06/19/24 06/28/24 History Patient hx anesthesia problems: none Family hx anesthesia problems: none Results Review: All pre-operative results and documents have been reviewed as part of the pre-operative evaluation. [facility], [facility] Past Medical History Medical History Endometriosis Gastric ulcer Wears glasses Iron deficiency anemia Profound anemia Bipolar disorder Depression GERD (gastroesophageal reflux disease) Asthma Surgical History Surgical History H/O endoscopy H/O colonoscopy Family History Family History Mother High cholesterol Sibling Adverse reaction to anesthetic agent ADHD (attention deficit hyperactivity disorder) Depression Grandparent Ovarian cancer Social History Social History Social History: The patient is lives with her in [place]. She designates her , Ankit, as her surrogate decision maker and she wishes to be a full code. She is a lifelong nonsmoker and denies alcohol and drug abuse. 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 [employer] Gender identity (if verbalized by the patient): Female Spiritual care concerns: No Agree to blood products: Yes Anes - Eval Final PreProcedure Day of Procedure 06/28/24 12:37 Patient weight: morbidly obese Heart: regular rate and rhythm Lungs: clear to auscultation Airway: Mallampati scale class II Neurological: alert and oriented Last oral intake: >/= 8 hours ASA classification: III Emergent: no Anesthetic plan: proceed Anesthesia type and monitoring: general GIVS and standard monitoring Results Review: All pre-operative results and documents have been reviewed as part of the pre-operative evaluation. Informed Consent: The patient's anesthetic plan and its attendant risks and benefits were discussed with the patient/family/POA. Questions were solicited and answers provided to the satisfaction of the patient/family/POA.
--- NOTE | 2024-06-28 13:04 | P.HP_ITS ---
History of Present Illness History of Present Illness Consent: Risks, benefits, and alternatives have been discussed and questions answered. Patient agrees to proceed with procedure. 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, egd/colonoscopy 2020 negative, no celiac Review of Systems Review of Systems: All systems reviewed & are unremarkable except as noted in HPI and below PMFSH Past Medical History Medical History Endometriosis Gastric ulcer Wears glasses Iron deficiency anemia Profound anemia Bipolar disorder Depression GERD (gastroesophageal reflux disease) Asthma Surgical History Surgical History H/O endoscopy H/O colonoscopy Family History Family History Mother High cholesterol Sibling Adverse reaction to anesthetic agent ADHD (attention deficit hyperactivity disorder) Depression Grandparent Ovarian cancer Social History Social History Social History: The patient is lives with her in [place]. She designates her , Ankit, as her surrogate decision maker and she wishes to be a full code. She is a lifelong nonsmoker and denies alcohol and drug abuse. 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 [employer] Gender identity (if verbalized by the patient): Female Spiritual care concerns: No Agree to blood products: Yes Meds Home Medications and Allergies Home Medications ?Medication ?Instructions ?Recorded ?Confirmed ?Type albuterol sulfate 90 mcg/actuation 1 inh inhalation Q4H PRN shortness 10/28/21 06/28/24 Rx aerosol inhaler (ProAir HFA) of breath or wheezing #8.5 grams buspirone 10 mg tablet 10 mg PO TID #270 tabs 07/03/23 06/28/24 Rx fluoxetine 60 mg tablet 60 mg PO DAILY #90 tabs 12/29/23 06/28/24 Rx pantoprazole 40 mg tablet,delayed 40 mg PO BID #180 tabs 03/21/24 06/28/24 Rx release (Protonix) montelukast 10 mg tablet See Rx Instructions .Route 05/02/24 06/28/24 Rx .COMPLEX #90 tabs ondansetron 8 mg disintegrating 8 mg PO Q12H #14 tabs 06/06/24 06/28/24 Rx tablet aspirin 81 mg capsule 81 mg PO DAILY 06/19/24 06/28/24 History Allergies Allergy/AdvReac Type Severity Reaction Status Date / Time albuterol (From Proventil Allergy Severe hives Verified 05/21/24 11:07 HFA) NSAIDS (Non-Steroidal AdvReac Unknown hx of Verified 05/21/24 11:07 Anti-Inflamma ulcers Vital Signs Vital Signs - 24 hr 06/28/24 12:21 Temperature 97.5 F L Pulse Rate 94 Respiratory Rate 16 Blood Pressure 143/87 H Pulse Oximetry 98 Oxygen Delivery Room Air Exam Const: General: comfortable and no acute distress HENMT: Face/Nose/Sinus: Normal nares present Eyes: General: appearance normal, both eyes and all related structures Neck: Neck: no JVD Resp: Auscultation: clear to auscultation bilaterally Cardio: Rate: regular rate Rhythm: regular rhythm GI: Inspection: non-distended GI Palp: Yes Soft to palpation Skin: General skin exam: normal color Neuro: General: gait normal Speech: normal speech Extrem: General: normal to inspection Psych: Mental Status: mental status grossly normal Assessment and Plan Assessment and plan (1) Iron deficiency anemia: Qualifiers: Iron deficiency anemia type: unspecified iron deficiency Qualified Code(s): D50.9 - Iron deficiency anemia, unspecified Code(s): D50.9 - Iron deficiency anemia, unspecified Status: Acute Assessment and Plan: egd and colonoscopy to assess if gi source of anemia
--- NOTE | 2024-06-28 13:23 | SUR.OPER ---
EGD ended 1316 colonoscopy started 1321
[2024-06-28 13:35] VITALS: BP 106/92; PULSE 81; RESP 19; O2SAT 100
[2024-06-28 13:45] VITALS: BP 96/63; PULSE 83; RESP 23; O2SAT 98
[2024-06-28 13:55] VITALS: BP 111/74; PULSE 83; RESP 21; O2SAT 97
== END 2024-06-28 14:03 | disposition home or self-care (01) ==
PROVIDERS: PCP Family Medicine; Referring Provider Nurse Practitioner; Visit Provider Internal Medicine Gastroenterology
PROC: 0DJ08ZZ Inspection of Upper Intestinal Tract, Via Natural or Artificial Opening Endoscopic (ICD-10-PCS; CPT 45378; principal; 2024-06-28 13:30)
DX: K22.2 Esophageal obstruction (principal); K44.9 Diaphragmatic hernia without obstruction or gangrene; D50.9 Iron deficiency anemia, unspecified; K31.89 Other diseases of stomach and duodenum; K21.9 Gastro-esophageal reflux disease without esophagitis; D12.4 Benign neoplasm of descending colon; K57.30 Diverticulosis of large intestine without perforation or abscess without bleeding; J45.909 Unspecified asthma, uncomplicated; N80.9 Endometriosis, unspecified; F31.9 Bipolar disorder, unspecified; E66.01 Morbid (severe) obesity due to excess calories; Z68.41 Body mass index [BMI] 40.0-44.9, adult; Z79.51 Long term (current) use of inhaled steroids; Z79.82 Long term (current) use of aspirin; Z87.19 Personal history of other diseases of the digestive system; Z80.41 Family history of malignant neoplasm of ovary
CPT/HCPCS: 43249; 43239; 45385; 88305; C1726; J2003; J2704; J7120

== ENCOUNTER 2024-08-06 10:55 | Emergency (ER) | payer BC, SELFPAY ==
--- NOTE | ~2024-08-06 | XR_ITS ---
HISTORY: pain AFTER INJURY X 1 WEEK AGO COMPARISON: 12/20/2023 TECHNIQUE: 4 views of the right knee were performed FINDINGS: No acute or subacute fracture, erosion, lytic or sclerotic lesion. Medial tibiofemoral joint space narrowing is identified. A small suprapatellar joint effusion is identified. The infrapatellar joint space is clear. IMPRESSION: Small suprapatellar joint effusion without acute fracture. Mild medial compartment degenerative disease. Reviewed, dictated and finalized at location A.
[2024-08-06 11:04] VITALS: BP 134/61; PULSE 84; RESP 16; TEMP 36.1; O2SAT 98
--- NOTE | 2024-08-06 11:50 | ED.LOWEXIN ---
HPI - Extremity Injury (Lower) General Chief Complaint: Extremity Injury, Lower Stated Complaint: right knee pain Time Seen by Provider: 08/06/24 11:35 Source: patient and RN notes reviewed Mode of arrival: ambulatory Limitations: no limitations History of Present Illness HPI Narrative: This is a 54 year old female who presents for evaluation of right knee pain. She states 2 weeks ago she injured her right knee but her pain worsened this weekend while she was helping someone. She reports right anterior knee pain that radiates down her leg. She has been wearing a knee pain and taking tylenol for pain. Related Data Home Medications ?Medication ?Instructions ?Recorded ?Confirmed ?Last Taken ?Type aspirin 81 mg capsule 81 mg PO DAILY 06/19/24 06/28/24 06/27/24 History Allergies Allergy/AdvReac Type Severity Reaction Status Date / Time albuterol (From Proventil Allergy Severe hives Verified 05/21/24 11:07 HFA) NSAIDS (Non-Steroidal AdvReac Unknown hx of Verified 05/21/24 11:07 Anti-Inflamma ulcers PMFSH Past Medical History Medical History Endometriosis Gastric ulcer Wears glasses Iron deficiency anemia Profound anemia Bipolar disorder Depression GERD (gastroesophageal reflux disease) Asthma Surgical History Surgical History H/O endoscopy H/O colonoscopy Family History Family History Mother High cholesterol Sibling Adverse reaction to anesthetic agent ADHD (attention deficit hyperactivity disorder) Depression Grandparent Ovarian cancer Social History Social History Social History: The patient is lives with her in [place]. She designates her , Ankit, as her surrogate decision maker and she wishes to be a full code. She is a lifelong nonsmoker and denies alcohol and drug abuse. 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 [employer] Gender identity (if verbalized by the patient): Female Spiritual care concerns: No Agree to blood products: Yes Exam Const: General: no acute distress and alert Orientation/consciousness: patient oriented x3 HENMT: Head: normal to inspection Eyes: EOM: EOMs intact bilaterally Resp: Effort & Inspection: normal respiratory effort Skin: General skin exam: normal color Rashes: no rashes Neuro: General: patient oriented x3 and moves all extremities Extrem: General: normal to inspection, no clubbing, cyanosis or edema and no pedal edema Psych: Mental Status: mental status grossly normal Affect: normal affect Attitude: cooperative Course Reevaluation(s) Reevaluation #1: I discussed with patient xray shows mild effusion. She will continue to wear brace and take tylenol for her pain. She will follow up with PCP for referral. Date: 08/06/24 Time: 13:43 Vital Signs Vital signs: Vital Signs Temperature 97.0 F L 08/06/24 11:04 Pulse Rate 84 08/06/24 11:04 Respiratory Rate 16 08/06/24 11:04 Blood Pressure 134/61 08/06/24 11:04 Pulse Oximetry 98 08/06/24 11:04 Temperature 97.0 F L 08/06/24 11:04 Pulse Rate 78 08/06/24 14:05 Respiratory Rate 18 08/06/24 14:05 Blood Pressure 130/81 08/06/24 14:05 Pulse Oximetry 100 08/06/24 14:05 MDM - Extremity Injury (Lower) Differential Diagnosis Differential diagnosis: Likely other (knee sprain, knee effusion, fracture) Medical Records Attestation: I reviewed the patient's medical records. Imaging Data Radiologist's impression: ITS Impressions Knee X-Ray 08/06/24 12:40 IMPRESSION: Small suprapatellar joint effusion without acute fracture. Mild medial compartment degenerative disease. Discharge Plan Discharge Clinical Impression: Suprapatellar effusion of knee Knee pain, right Qualifiers: Chronicity: acute Qualified Code(s): M25.561 - Pain in right knee Patient Disposition: Home Condition: Stable Instructions: Swollen Knee Joint (ED), Knee Pain (ED) Additional Instructions: Follow up with your primary care provider for further care of your knee Patient Language: Belarusian Prescriptions: No Action aspirin 81 mg capsule 81 mg PO DAILY albuterol sulfate [ProAir HFA] 90 mcg/actuation HFA aerosol inhaler 1 inh inhalation Q4H PRN (Reason: shortness of breath or wheezing) Qty: 8.5 0RF buspirone 10 mg tablet 10 mg PO TID Qty: 270 1RF pantoprazole [Protonix] 40 mg tablet,delayed release (DR/EC) 40 mg PO BID Qty: 180 1RF montelukast 10 mg tablet See Rx Instructions .ROUTE .COMPLEX Qty: 90 1RF Dose Instruction: TAKE 1 TABLET BY MOUTH EVERY DAY Rx Instructions: TAKE 1 TABLET BY MOUTH EVERY DAY ondansetron 8 mg tablet,disintegrating 8 mg PO Q12H Qty: 14 0RF fluoxetine 60 mg tablet 60 mg PO DAILY Qty: 90 1RF Follow-up/Referrals: Deb Tanner MD [Primary Care Provider] - Stand Alone Forms: Work/School Release IP
--- OUTSIDE RECORDS SUMMARY | 2024-08-06 12:46 | XMS_ITS | Clinical Summary ---
Author Organization [facility] Ophelia alex [facility] Address [address] [place] [address] Care Team Providers Care Chain Tender Name Role Phone Deb Tanner MD Primary Care Provider Allergies Active Allergy Reactions Criticality Noted Date Comments Albuterol Sulfate Hives High 06/25/2021 Medications pantoprazole (PROTONIX) 40 mg Tablet, Delayed Release (E.C.) 2 Active montelukast (SINGULAIR) 10 mg tablet 2 Active busPIRone (BUSPAR) 10 mg tablet TAKE 1 TABLET BY MOUTH 3 TIMES A DAY 2 Active FLUoxetine (PROzac) 60 mg tablet Take 60 mg by mouth daily. 1 Active cyanocobalamin (VITAMIN B-12) 1,000 mcg/mL SolutionIndicat ions:Anemia due to vitamin B12 deficiency, unspecified B12 deficiency type INJECT 1 ML (1,000 MCG) BY INTRAMUSCULAR INJECTION EVERY 30 DAYS 3 mL 5 Active Syringe with Needle, Disp, (BD SafetyGlide Syringe) 1 mL 27 x 1/2 SyringeIndicati ons:Anemia due to vitamin B12 deficiency, unspecified B12 deficiency type USE WITH B-12 INJECTIONS. 3 Each 5 Active Active Problems Problem Noted Date Diagnosed Date Vitamin B12 deficiency (non anemic) 08/09/2022 Reactive thrombocytosis 06/25/2021 Encounters Date Type Department Care Team Description 07/31/2024 External Device Data STL ABSTRACTION Provider, Abstract 07/22/2024 [facility] Oncology and Hematology - [place] [address] [place] [address] Manpreet Davis MD Anemia due to vitamin B12 deficiency, unspecified B12 deficiency type 07/04/2024 External Device Data STL ABSTRACTION Provider, Abstract 06/23/2024 External Device Data STL ABSTRACTION Provider, Abstract 06/22/2024 External Device Data STL ABSTRACTION Provider, Abstract 06/21/2024 [facility] Oncology and Hematology - [place] [address] [place] [address] Manpreet Davis MD Anemia due to vitamin B12 deficiency, unspecified B12 deficiency type 06/19/2024 External Device Data STL ABSTRACTION Provider, Abstract 06/12/2024 [facility] Oncology and Hematology - [place] [address] [place] [address] Manpreet Davis MD Anemia due to vitamin B12 deficiency, unspecified B12 deficiency type 06/05/2024 External Device Data STL ABSTRACTION Provider, Abstract 06/01/2024 Abstract [facility] Oncology and Hematology - [place] [address] [place] [address] Manpreet Davis MD 05/29/2024 Abstract [facility] Oncology and Hematology - [place] [address] [place] [address] Manpreet Davis MD 05/09/2024 External Device Data [...] on file 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 [address] [place] [address] Manpreet Dvais MD [address] [facility] [address] [place] [address] Health Maintenance Due Date Last Done Comments Pre-Diabetes and Diabetes Screening 1972 DTAP/TDAP/TD VACCINES (1 - Tdap) 08/03/1991 HEPATITIS B VACCINES (1 of 3 - 19+ 3-dose series) 07/17 HPV/Cotest (21-29) 1993 CERVICAL CANCER SCREENING 2002 HPV/Cotest (30-65) 2002 PAP SMEAR 2002 BREAST CANCER SCREENING 2012 COLORECTAL SCREENING 2017 Colorectal Cancer Screening 2017 FIT-DNA Q 3 years 2017 FIT/FOBT Q 1 year 2017 Flex Sig/CT Colonography Q 5 years 2017 ZOSTER VACCINE (1 of 2) 2022 INFLUENZA VACCINE (#1) 2023 Preventative Visit- Commercial 04/18/2024 Insurance BCBS BLUE ACCESS[facility] Care Teams Chain Tender Relationship Specialty Start Date End Date Deb Tanner MD [address] [place] [address] PCP - General Family Practice 06/25/21
--- OUTSIDE RECORDS SUMMARY | 2024-08-06 12:46 | XMS_ITS | Clinical Summary ---
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
--- OUTSIDE RECORDS SUMMARY | 2024-08-06 12:46 | XMS_ITS | Data Portability ---
Author Organization [facility] Address [address] [place] [address] [address] Care Team Providers Care Audiovisual Equipment Operator Name Role Phone SETH CARDOZO Primary Care Provider [phone] Assessment Encounter Date Assessment Date Assessment LastModified by Organization Details LastModified Time 06/08/2021 06/08/2021 suspect perimenopausal, but discussed need to r/o hyperplasia or malignancy of endometrium will schedule US will do EMB with FU visit will start [employer] jillian for libido discussed either antidepressants or HRT for symptomatic treatment of menopause. May not have estrogen until EMB benign, and does not have hotflashes yet. encouraged to contact PCP or maybe get psych consult re irritability since already on high dose prozac. WWE scheduled next month [email or web address] Not available 06/08/2021 15:40:29 06/19/2021 06/19/2021 Discussed US results in depth. Left ovarian cyst simple and should not require follow up unless sx. Should resolve. Discussed nabothian cysts also. EMB done, will contact with results. [email or web address] Not available 06/22/2021 20:00:27 Plan of Treatment Reminders Order Date Submit Date Provider Last Modified By Organization Details Last Modified Time Details Appointments None recorded. Lab None recorded. Referral None recorded. Procedures None recorded. Surgeries None recorded. Imaging US, pelvis 2021 022 [facility], [address], [address], [place], [address], 15:38:58 [facility]ina l [facility] [address], [address], [place], [address], 16:00:11 Medication Orders None recorded. Patient TargetsNo [...] Gross ed by Selvin Pittman Not Available [facility] (Lab) [address], [place], [address], 06/22/2021 16:26:25 06/17/19 22 06/16/2021 US, pelvi s No observ ation record ed. [email or web address] [place] [address], [place], [address], 06/16/2021 15:59:55 06/17/19 22 06/16/2021 US, trans vagin al No observ ation record ed. [email or web address] [place] [address], [place], [address], 06/16/2021 16:00:11 06/17/19 22 06/16/2021 US, pelvi s No observ ation record ed. lee ann Erika [address], [place], [address], 06/23/2021 11:37:40 Result Notes None recorded. Problems Name Problem SNOMED Code Status Onset Date Resolution Date Notes Provider Name and Address Organization Details Recorded Time Finding of regulari ty of menstrua l cycle Completed 201706/08/2021 Irregula r bleeding ;Recorde d Elsewher e: No [facility]at [facility]: EHR Wood Patternmaker Apprentice juan: N Dav ce ID: [id number] Adrian lable Time: 11:15:00 AM MD [address], [place], [address], [facility] 15:06:32 Pregnanc y test negative [id number] Completed 201706/08/2021 Encounte r for pregnanc y test, result negative ;Recorde d Elsewher e: No Locat ion: [facility] S ource: EHR Wood Patternmaker Apprentice juan: N Dav ce ID: [id number] Adrian lable Time: 11:15:00 AM Briseida Lenz MD [address], [place], [address], [facility] [address] 15:06:[address] Concept Completed 201706/08/2021 Encntr for lining caser exam (general ) (routine ) w/o abn findings ;Recorde d Elsewher e: No Locat ion: [facility] S ource: EHR Wood Patternmaker Apprentice juan: N Practi ce ID: [id number] Adrian lable Time: 11:15:00 AM Briseida Lenz MD [address], [place], [address], [facility] 2 15:06:36 Body mass index 40+ - severely obese 176683673 Active 2021 Briseida Lenz MD [address], [place], [address], [facility] 2 15:40:19 Problem Notes None recorded. Procedures Surgical History Date Name Laterality Status Provider Name and Address Organization Details Recorded Time 06/20/19 Endometrial Biopsy completed Briseida Lenz MD [address], [place], [address], [facility] 06/22/2021 19:59:18 07/14/19 18 Date of Last Pap Smear completed Tashia Mckeon [facility] 06/08/2021 15:07:08 Imaging Results Imaging Date Name Status LastModified by Organization Details LastModified Time 06/16/2021 US, pelvis completed [email or web address] Mike [address], [place], [address], 06/16/2021 15:59:55 06/16/2021 US, transvaginal completed [email or web address] [address], [place], [address], 06/16/2021 16:00:11 06/16/2021 US, pelvis completed layran Erika [address], [place], [address], 06/23/2021 11:37:40 Procedure Notes None recorded. Medical Equipment None Reported. Allergies Allergen ID Allergen Name Allergen Category Reaction Reaction Severity Criticality Documentation Date Start Date Code Code System Note Provider Name and Address Organization Details Recorded Time albuterol medicatio n Not available Not available Not available 06/08/2021 435 RxNorm Tashia chanel [place] - [facility] 2 15:06:07 Medications Name Sig Start [...] Prescrib ed Elsewher e: Yes Loca tion: [facility] M odify By: tracey Gorete r DateTime : 07/14/19 18 11:15:00 AM Not Available Not Available Not Available montel[facility] st 10 mg tablet TAKE 1 TABLET BY MOUTH EVERY DAY active Not Available Not Available No t Available ranitidin e 150 mg capsule take 1 capsule by oral route 2 times every day 06/08 completed Prescrib ed Elsewher e: Yes Loca tion: [facility] M odify By: tracey Encounte r DateTime [...] Updated DateTime 06/08/2021 160.02 cm 42.3 kg/m2 706447.5 8 g 132 mm[Hg] 84 mm[Hg] [facility] 2 15:03:03 Date Recorded Body height Body mass index (BMI) Body weight Systolic blood pressure Diastolic blood pressure Provider Name and Address Organization Details Last Updated DateTime 06/19/2021 160.02 cm 41.8 kg/m2 231403.8 g 130 mm[Hg] 84 mm[Hg] [facility] 14:06:28 Social History Question Answer Notes LastModified by Organizat ion Details LastModified Time Tobacco Smoking Status Never Smoker [facility] 06/08/2021 14:41:15 What Is Your Level [...] SNOMED-CT Code Diagnosis ICD10 Code Diagnosis Note [id number] Briseida Lenz MD [place] [address] [address] 06/08/2021 14:24:15 06/08/2021 15:47:12 Menometrorrhagia 319999241 N92.1 Mood disorder 14812821 F 39 Reduced libido 4780373 R 68.82 Body mass index 40+ - severely obese 313414820 Z68.41 [address]1983 [address] [place] [address],[place] [address] 06/16/2021 14:33:50 06/16/2021 15:27:22 Menometrorrhagia 018903602 N92.1 [id number] Briseida Lenz MD [place] [address] [address] 06/19/2021 13:30:04 06/23/2021 16:29:58 Menometrorrhagia 230553530 N92.1 Cyst of left ovary 75680 56848 4853852 N83.202 Health Concerns Section Related Observation LastModified by Organization Marcos maldonado LastModified Time None Recorded Concern Status LastModified by Organization Details LastModified Time None Recorded Advance Directives Directive None Recorded Payers Encounter Date Sequence Insurance Name Policy Number Policy Roman Covered Member ID Roman Member ID Guarantor Name 06/08/2021 1 [place] [id number] Erika Acevedo [id number] Evelina Acevedo 06/16/2021 1 [place] [id number] Erika Acevedo [id number] Evelina Acevedo 06/19/2021 1 [place] [id number] Erika Acevedo [id number] Evelina Acevedo Notes Date Note Type [...] violence:denies Briseida Lenz MD [address], [place], [address], [facility] 06/08/2021 15:40:45 06/19/2021 text/html 50yo here for follow up menometrorrhagia. US this week showed heterogeneous uterus, otherwise normal, and left ovary with a 4cm simple cyst. Also nabothian cysts. needs EMB. Briseida Lenz MD [address], [place], [address], [facility] 06/22/2021 20:00:51 OBGyn Episode No OBEpisode recorded.
--- OUTSIDE RECORDS SUMMARY | 2024-08-06 13:30 | XMS_ITS | Clinical Summary ---
Author Organization [facility] Ophelia alex [facility] Address [address] [facility] [place] [address] Care Team Providers Care Bus Attendant Name Role Phone Deb Tanner MD Primary Care Provider [phone] Allergies Active Allergy Reactions Criticality Noted Date [...] Device Data STL ABSTRACTION Provider, Abstract 07/22/2024 [facility] Oncology and Hematology - [place] [address] [place] [address] Manpreet Davis MD Anemia due to vitamin B12 deficiency, unspecified B12 deficiency type 07/04/2024 External Device Data STL ABSTRACTION Provider, Abstract 06/23/2024 External Device Data STL ABSTRACTION Provider, Abstract 06/22/2024 External Device Data STL ABSTRACTION Provider, Abstract 06/21/2024 [facility] Oncology and Hematology - [place] [address] [place] [address] Manpreet Davis MD Anemia due to vitamin B12 deficiency, unspecified B12 deficiency type 06/19/2024 External Device Data STL ABSTRACTION Provider, Abstract 06/12/2024 [facility] Oncology and Hematology - [place] [address] [place] [address] Manpreet Davis MD Anemia due to vitamin B12 deficiency, unspecified B12 deficiency type 06/05/2024 External Device Data STL ABSTRACTION Provider, Abstract 06/01/2024 Abstract [facility] Oncology and Hematology - [place] [address] [place] [address] Manpreet Davis MD 05/29/2024 Abstract [facility] Oncology and Hematology - [place] [address] [place] [address] Manpreet Davis MD 05/09/2024 External Device Data [...] on file 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 Gender Identity Not on file Sexual Orientation [...] Description 09/24/2024 2:15 PM CDT Office Visit [facility] Oncology and Hematology [facility] [address] [facility] [address] [place] [address] Manpreet Davis MD [address] [facility] [address] [place] [address] Health Maintenance Due Date Last [...] 04/18/2024 Insurance BCBS BLUE ACCESS/[facility] Care Teams Bus Attendant Relationship Specialty Start Date End Date Deb Tanner MD [address] [place] [address] PCP - General Family Practice 06/25/21
--- OUTSIDE RECORDS SUMMARY | 2024-08-06 13:30 | XMS_ITS | Clinical Summary ---
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
[2024-08-06 14:05] VITALS: BP 130/81; PULSE 78; RESP 18; O2SAT 100
== END 2024-08-06 13:59 | disposition home or self-care (01) ==
PROVIDERS: Emergency Provider General Practice; PCP Family Medicine
DX: M25.561 Pain in right knee (principal); M25.461 Effusion, right knee; J45.909 Unspecified asthma, uncomplicated; N80.9 Endometriosis, unspecified; D50.9 Iron deficiency anemia, unspecified; K21.9 Gastro-esophageal reflux disease without esophagitis; F31.9 Bipolar disorder, unspecified
CPT/HCPCS: 73564; 99283

== ENCOUNTER 2024-08-20 05:22 | Day surgery (SDC) | payer BC, SELFPAY ==
[2024-08-10 11:44] VITALS: BMI 36.3
--- OUTSIDE RECORDS SUMMARY | 2024-08-20 05:25 | XMS_ITS | Clinical Summary ---
Author Organization [facility] Ophelia alex [facility] Address [address] [facility] [address] Care Team Providers Care Color Artist Name Role Phone Deb Tanner MD Primary Care Provider [phone] Allergies Active Allergy Reactions Criticality Noted Date [...] Device Data STL ABSTRACTION Provider, Abstract 07/22/2024 [facility] Oncology and Hematology - [place] [address] [place] [address] Manpreet Davis MD Anemia due to vitamin B12 deficiency, unspecified B12 deficiency type 07/04/2024 External Device Data STL ABSTRACTION Provider, Abstract 06/23/2024 External Device Data STL ABSTRACTION Provider, Abstract 06/22/2024 External Device Data STL ABSTRACTION Provider, Abstract 06/21/2024 [facility] Oncology and Hematology - [place] [address] [place] [address] Manpreet Davis MD Anemia due to vitamin B12 deficiency, unspecified B12 deficiency type 06/19/2024 External Device Data STL ABSTRACTION Provider, Abstract 06/12/2024 [facility] Oncology and Hematology - [place] [address] [place] [address] Manpreet Davis MD Anemia due to vitamin B12 deficiency, unspecified B12 deficiency type 06/05/2024 External Device Data STL ABSTRACTION Provider, Abstract 06/01/2024 Abstract [facility] Oncology and Hematology - [place] [address] [place] [address] Manpreet Davis MD 05/29/2024 Abstract [facility] Oncology and Hematology - [place] [address] [place] [address] Manpreet Davis MD from Last 3 Months [...] on file 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 [address] [place] [address] Manpreet Davis MD [address] [facility] [address] [place] [address] Health Maintenance Due Date Last [...] of 2) 2022 INFLUENZA VACCINE (#1) 2023 Insurance BCBS BLUE ACCESS/TRUE BLUE PPO [facility] BLUE ACCESS/TRUE BLUE PPO Care Teams Color Artist Relationship Specialty Start Date End Date Deb Tanner MD [address] [place] [address] PCP - General Family Practice 06/25/21
--- OUTSIDE RECORDS SUMMARY | 2024-08-20 05:25 | XMS_ITS | Data Portability ---
Author Organization [place] - [facility] [employer] [facility], Main Office Address [address] [place] [address] Care Team Providers Care Steward/Stewardess Club Car Name Role Phone SETH CARDOZO Primary Care Provider JULIANEJENNIFERA Referring Provider Assessment Encounter Date Assessment Date Assessment LastModified by Organization Details LastModified Time 08/17/2024 08/17/2024 The patient has mild primary osteoarthritis of the right knee joint as described with mild narrowing in the medial and patellofemoral compartments and very small marginal osteophytes off the medial tibial femoral joint line as well as around the patellofemoral articulation. We talked about treatment options today in detail she would like to proceed with a cortisone oral prednisone and physical therapy. We will get her set up for all the above. Under sterile conditions I injected the patient's right knee joint in the office with 4 cc of 0.5% bupivacaine and 20 mg of Kenalog. The patient tolerated the procedure well. I will see her back in 6 weeks to see what impact treatment has had. If her symptoms continue an MRI scan may be indicated we will see how she does with time. She voiced understanding and agree with the above plan she will call for any further problems difficulties or questions. [email or web address] Not available 08/17/2024 12:00:18 Plan of Treatment Reminders Order Date Submit Date Provider Last Modified By Organization Details Last Modified Time Details Appointments Any 5 2024 10:45A M BILL Heredia Not available Not available Not available Lab None recorded. Referral physical therapist referral - Please schedule pt for R knee pain. Thanks 2024 025 [facility], [address], [place], [address], 08/17/2024 12:32:56 Procedures injection /aspirati on joint/bur sa (PROC) 2024 025 [email or web address] 1 In-Office Order, Internal Use Only DO Not Attach Compendium DO Not Attach Compendium, Do Not Delete/merge, [id number] 08/17/2024 11:56:02 Surgeries None recorded. Imaging XR, knee, 3 view 2024 025 [email or web address] 1 [facility] [place], [address], [place], [address], 08/17/2024 12:10:32 Medication Orders bupivacai ne HCl 0.5 % (5 mg/mL) injection solution 2024 025 [email or web address] [facility]/Pharmacy #[id number], [address] [place], [address], 08/17/2024 12:06:07 Kenalog 10 mg/mL suspensio n for injection 2024 025 [email or web address] [facility]/Pharmacy #2510, [address] [place], [address], 08/17/2024 12:06:07 prednison e 10 mg tablets in a dose pack 2024 025 [facility]6 [facility]/Pharmacy #2510, [address] [place], [address], 08/17/2024 12:06:07 Patient TargetsNo targets recorded. Patient InstructionsNo instructions recorded. Reason for Referral Physical Therapist Referral for Pain of knee region R knee pain Please schedule pt for R knee pain. Thanks Referring Physician: Stew Orozco, Orthopedic Surgery, Encounter Date: 08/17/2024 Results Created Date Observation Date Name Description Value Unit Range Abnormal Flag Note LastModifiedBy Organization Detail LastModifiedTime 12/24/19 21 XR, ankle , 3 or more view No observ ation record ed. [id number] [facility] [place] [address], [place], [address], 06/16/2022 23:42:35 08/15/19 25 08/06/2024 XR, knee, 4 or more view No observ ation record ed. [email or web address] Not Available 2024 10:25:55 08/18/19 25 XR, knee, 3 view No observ ation record ed. [email or web address] [facility] [place] [address], [address], 08/17/2024 12:04:08 Result Notes None recorded. Problems Name Problem SNOMED Code Status Onset Date Resolution Date Notes Provider Name and Address Organization Details Recorded Time Pain of knee region 8777863109 Active 2024 Marli Bella CNA [facility], [employer] 11:34:34 Osteoarthri tis of right knee joint 4063544793237 00 Active 2024 BILL Heredia [address] [facility], [facility] [address], [place], [address] [facility] [employer] 12:04:39 Problem Notes None recorded. Procedures Surgical History Date Name Laterality Status Provider Name and Address Organization Details Recorded Time Colonoscopy completed Marli Bella CNA [employer] 08/17/2024 11:33:46 Imaging Results Imaging Date Name Status LastModified by Organiz ation Details LastModified Time 12/23/2020 XR, ankle, 3 or more view completed [id number] [facility] [place] [address], [address], 06/16/2022 23:42:35 08/06/2024 XR, knee, 4 or more view completed [email or web address] Information not available 08/14/2024 10:25:55 08/17/2024 XR, knee, 3 view completed [email or web address] [facility] [place] [address], [place], [address], 08/17/2024 12:04:08 Procedure Notes None recorded. Medical Equipment None Reported. Allergies Allergen ID Allergen Name Allergen Category Reaction Reaction Severity Criticality Documentation Date Start Date Code Code System Note Provider Name and Address Organization Details Recorded Time 83632 albuterol sulfate medicatio n hives Not available Not available 06/16/2022 69250 3 RxNorm Not Available [facility] 23:42:19 Medications Name Sig Start Date Stop Date Status Note LastModified by Organization Details LastModified Time BD Insulin Syringe 1 mL 25 x 1 USE WITH B-12 INJECTION S. 08/17 completed Not Available Not Available Not Available benzonatate 200 mg capsule TAKE 1 CAPSULE ORALLY THREE TIMES A DAY NEEDED FOR COUGH 08/17 completed Not Available Not Available Not Available bupivacaine HCl 0.5 % (5 mg/mL) injection solution Take 4 mL by injection route. 2024 active Not Available Not Available Not Avai lable ondansetron 8 mg disintegrat ing tablet TAKE 1 TABLET BY MOUTH EVERY 12 HOURS 08/17 completed Not Available Not Available Not Available prednisone 10 mg tablets in a dose pack Take 1 tab by mouth, 3 times a day for 3 daysTake 1 tab by mouth 2 times a day for 2 daysTake 1 tab by mouth once a day for 1 day 2024 active Not Available Not Available Not Avai lable Kenalog 10 mg/mL suspension for injection Take 2 mL by injection route. 2024 active ND: 0003- 0494- 20 Not Available Not Available Not Available pantoprazol e 40 mg tablet,tanna yed release TAKE 1 TABLET BY MOUTH TWICE A DAY active Not Available Not Available No t Available cyanocobala min (vit B-12) 1,000 mcg/mL injection solution INJECT 1 ML (1,000 MCG) BY INTRAMUSC ULAR INJECTION EVERY 30 DAYS 08/17 completed Not Available Not Available Not Available montelukast 10 mg tablet TAKE 1 TABLET BY MOUTH EVERY DAY active Not Available Not Available No t Available BD SafetyGlide Tuberculin Regular Bevel 1 mL 27 x 1/2 syringe USE WITH B-12 INJECTION S. 08/17 completed Not Available Not Available Not Available Prozac 2020 active Not Available Not Available Not Avai lable buspirone active Not Available Not Ashley ilable Not Available fluoxetine 60 mg tablet TAKE 1 TABLET BY MOUTH EVERY DAY 08/17 completed Not Available Not Available Not Available Sutab 1.479-0.188 -0.225 gram tablet TAKE PER PACKAGE DIRECTION S 08/17 completed Not Available Not Available Not Available aspirin 81 mg capsule Take 1 capsule every day by oral route. active Not Available Not Available No t Available Vitals Date Recorded Body mass index (BMI) Body height Body weight Provider Name and Address Organization Details Last Updated DateTime 12/09/2020 36.1 kg/m2 160.02 cm 86986.84 g Not Available [facility] 06/16/2022 23:37:36 Date Recorded Body height Provider Name an d Address Organization Details Last Updated DateTime 12/23/2020 160.02 cm Not Available [facility] 23:37:36 Date Recorded Body height Provider Name an d Address Organization Details Last Updated DateTime 01/29/2021 160.02 cm Not Available [facility] 23:37:36 Date Recorded Body height Body mass index (BMI) Body weight Provider Name and Address Organization Details Last Updated DateTime 08/17/2024 160.02 cm 36.3 kg/m2 74912.44 g ARGELIA Posey [place] 08/17/2024 11:30:23 Social History Question Answer Notes LastModified by Organizat ion Details LastModified Time Tobacco Smoking Status Never Smoker Not Available [facility] 06/16/2022 23:35:37 What Is Your Level Of Alcohol Consumption? None [id number] Information not available 06/16/2022 Sex: Unknown Functional Status None recorded. Mental Status None recorded. Family History Relationship Description Onset Age of this Age Resolved Age Notes LastModified by Organization Details LastModified Time Maternal Grandmother Family history of stroke [email or web address] Not available 2024 11:33:18 Unspecified Relation Family history of malignant neoplasm grandm other [id number] Not available 06/16/2022 23:35:49 Medical History Condition Response ULCERS Y Blood Disorder Y ANEMIA/BLOOD DISORDER Y Gynecological HistoryNo gynecological history recorded. Obstetrics History GPAL:G 0 P 0 0 0 0 Past Encounters Encounter ID Performer Location Encounter Start Date Encounter Closed Date Diagnosis/Indication Diagnosis SNOMED-CT Code Diagnosis ICD10 Code Diagnosis Note [id number] BILL Heredia [facility] [place] [address] [facility] [address] [place] [address] 12/09/2020 00:00:00 12/09/2020 14:29:23 [id number] BILL Heredia [facility] [place] [address] [facility] [address] [place] [address] 12/23/2020 00:00:00 12/23/2020 15:21:53 [id number] BILL Heredia [facility] [place] [address] [address] [facility] [address] [place] [address] 01/29/2021 00:00:00 01/29/2021 09:35:51 [id number] Genaro Mar MD [facility] [place] [address] [address] [place] [address] 08/17/2024 11:17:17 08/17/2024 12:10:32 Pain of knee region 6296041427 M25.561 Osteoarthr itis of right knee joint 0502612569 79410 M17.11 Health Concerns Section Related Observation LastModified by Organization Detai ls LastModified Time None Recorded Concern Status LastModified by Organization Details LastModified Time None Recorded Advance Directives Directive None Recorded Payers Encounter Date Sequence Insurance Name Policy Number Policy Roman Covered Member ID Roman Member ID Guarantor Name 08/17/2024 1 [place] YONATAN AREVALO (PPO) [id number] Evelina Acevedo [id number] Evelina Acevedo Notes Date Note Type Note Provider Name and Address Organization Details Recorded Time 08/17/2024 text/html The patient is a 54-year-old female who presents with a couple of week history of right knee pain. She denies any specific trauma or injury. She states the pain has been pretty significant about an 8 on a scale of 1-10. The pain came on gradually has gotten worse with time. She did go to see her primary care physician who ordered x-rays. X-rays demonstrated small knee joint effusion and mild narrowing of the medial and patellofemoral compartments. Unfortunately the x-rays were not available for our review so we are getting new x-rays today. She states she has pain medially and laterally has trouble squatting kneeling going up and down stairs can not stand or walk for long periods. She has tried Tylenol without significant pain relief. She can not take nonsteroidal anti-inflammatory medication due to the fact that she has had gastric ulcers. She has failed activity modification Tylenol a patellar guide brace and time. She comes in today for initial evaluation treatment. She denies any large knee joint effusions no erythema heat no signs of infection. Denies any locking or catching or mechanical symptoms she does no crepitation through the arc of motion. This is chronic in nature. She has no history of old trauma in the distant past. New past medical history sheet was reviewed and signed on the intake sheet of today's date drug allergies current medications family social history previous surgical history 10 point review of systems was reviewed and discussed in detail today with the patient. BILL Heredia [address] [facility], [facility] [address], [place], [address], [place] [facility] [employer] 08/17/2024 12:05:35 OBGyn Episode No OBEpisode recorded.
--- OUTSIDE RECORDS SUMMARY | 2024-08-20 05:25 | XMS_ITS | Clinical Summary ---
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
--- OUTSIDE RECORDS SUMMARY | 2024-08-20 05:25 | XMS_ITS | Data Portability ---
Author Organization [facility] Address [address] [place] [address] Care Team Providers Care Splicing Supervisor Name Role Phone SETH CARDOZO Primary Care Provider [phone] Assessment Encounter Date Assessment Date Assessment LastModified by Organization Details LastModified Time 06/08/2021 06/08/2021 suspect perimenopausal, but discussed need to r/o hyperplasia or malignancy of endometrium will schedule US will do EMB with FU visit will start [employer] jillian for libido discussed either antidepressants or HRT for symptomatic treatment of menopause. May not have estrogen until EMB benign, and does not have hotflashes yet. encouraged to contact PCP or maybe get psych consult re irritability since already on high dose prozac. WWE scheduled next month [email or web address] Not available 06/08/2021 15:40:29 06/19/2021 06/19/2021 Discussed US results in depth. Left ovarian cyst simple and should not require follow up unless sx. Should resolve. Discussed nabothian cysts also. EMB done, will contact with results. [email or web address] Not available 06/22/2021 20:00:27 Plan of Treatment Reminders Order Date Submit Date Provider Last Modified By Organization Details Last Modified Time Details Appointments None recorded. Lab None recorded. Referral None recorded. Procedures None recorded. Surgeries None recorded. [facility], [address], [address], [place], [address], 15:38:58 [facility]agina l [facility] [address], [address], [place], [address], 16:00:11 Medication Orders None recorded. Patient TargetsNo [...] Gross ed by Selvin Pittman Not Available [facility] (Lab) [address], [place], [address], 06/22/2021 16:26:25 06/17/19 22 06/16/2021 US, pelvi s No observ ation record ed. [email or web address] [employer] [employer] [address], [place], [address], 06/16/2021 15:59:55 06/17/19 22 06/16/2021 US, trans vagin al No observ ation record ed. [email or web address] [employer] [address], [place], [address], 06/16/2021 16:00:11 06/17/19 22 06/16/2021 US, pelvi s No observ ation record ed. lee ann Erika [address], [place], [address], 06/23/2021 11:37:40 Result Notes None recorded. Problems Name Problem SNOMED Code Status Onset Date Resolution Date Notes Provider Name and Address Organization Details Recorded Time Finding of regulari ty of menstrua l cycle Completed 201706/08/2021 Irregula r bleeding ;Recorde d Elsewher e: No [facility]at [facility]: EHR Graphic Engineer juan: N Dav ce ID: [email or web address] Adrian lable Time: 11:15:00 AM MD [address], [place], [address], [facility] 15:06:32 Pregnanc y test negative 309599099 Completed 201706/08/2021 Encounte r for pregnanc y test, result negative ;Recorde d Elsewher e: No Locat ion: [facility] S ource: EHR Graphic Engineer juan: N Dav ce ID: [id number] Adrian lable Time: 11:15:00 AM Briseida Lenz MD [address], [place], [address], [facility] [address] 15:06:[address] Concept Completed 201706/08/2021 Encntr for clinical pharmacist exam (general ) (routine ) w/o abn findings ;Recorde d Elsewher e: No Locat ion: [facility] S ource: EHR Graphic Engineer ujan: N Practi ce ID: [id number] Adrian lable Time: 11:15:00 AM Briseida Lenz MD [address], [place], [address], [facility] 2 15:06:36 Body mass index 40+ - severely obese 035441701 Active 2021 Briseida Lenz MD [address], [place], [address], [facility] 2 15:40:19 Problem Notes None recorded. Procedures Surgical History Date Name Laterality Status Provider Name and Address Organization Details Recorded Time 06/20/19 Endometrial Biopsy completed Briseida Lenz MD [address], [place], [address], [facility] 06/22/2021 19:59:18 07/14/19 18 Date of Last Pap Smear completed Tashia Mckeon [facility] 06/08/2021 15:07:08 Imaging Results Imaging Date Name Status LastModified by Organization Details LastModified Time 06/16/2021 US, pelvis completed [email or web address] Mike [address], [place], [address], 06/16/2021 15:59:55 06/16/2021 US, transvaginal completed [email or web address] [address], [place], [address], 06/16/2021 16:00:11 06/16/2021 US, pelvis completed layran Erika [address], [place], [address], 06/23/2021 11:37:40 Procedure Notes None recorded. Medical Equipment None Reported. Allergies Allergen ID Allergen Name Allergen Category Reaction Reaction Severity Criticality Documentation Date Start Date Code Code System Note Provider Name and Address Organization Details Recorded Time albuterol medicatio n Not available Not available Not available 06/08/2021 435 RxNorm Tashia chanel [place] [facility] 2 15:06:07 Medications Name Sig Start [...] Prescrib ed Elsewher e: Yes Loca tion: [facility] M odify By: tracey Goerte r DateTime : 07/14/19 18 11:15:00 AM Not Available Not Available Not Available montel[address] [facility] 10 mg tablet TAKE 1 TABLET BY MOUTH EVERY DAY active Not Available Not Available No t Available ranitidin e 150 mg capsule take 1 capsule by oral route 2 times every day 06/08 completed Prescrib ed Elsewher e: Yes Loca tion: [facility] M odify By: tracey Encounte r [...] Updated DateTime 06/08/2021 160.02 cm 42.3 kg/m2 282730.5 8 g 132 mm[Hg] 84 mm[Hg] [facility] 2 15:03:03 Date Recorded Body height Body mass index (BMI) Body weight Systolic blood pressure Diastolic blood pressure Provider Name and Address Organization Details Last Updated DateTime 06/19/2021 160.02 cm 41.8 kg/m2 999059.8 g 130 mm[Hg] 84 mm[Hg] [facility] 14:06:28 Social History Question Answer Notes LastModified by Organizat ion Details LastModified Time Tobacco Smoking Status Never Smoker [facility] 06/08/2021 14:41:15 What Is [...] SNOMED-CT Code Diagnosis ICD10 Code Diagnosis Note [id number] Briseida Lenz MD [facility] [address] [place] [address] 06/08/2021 14:24:15 06/08/2021 15:47:12 Menometrorrhagia 641038476 N92.1 Mood disorder 84898785 F 39 Reduced libido 2519127 R 68.82 Body mass index 40+ - severely obese 254881962 Z68.41 [id number] Briseida Lenz MD [facility] [employer] [address] [place] [address] 06/16/2021 14:33:50 06/16/2021 15:27:22 Menometrorrhagia 353669653 N92.1 [id number] Briseida Lenz MD [facility] [employer] [address] [place] [address] 06/19/2021 13:30:04 06/23/2021 16:29:58 Menometrorrhagia 758155301 N92.1 Cyst of left ovary 70381 69383 8152803 N83.202 Health Concerns Section Related Observation LastModified by Organization Detai ls LastModified Time None Recorded Concern Status LastModified by Organization Details LastModified Time None Recorded Advance Directives Directive None Recorded Payers Encounter Date Sequence Insurance Name Policy Number Policy Roman Covered Member ID Roman Member ID Guarantor Name 06/08/2021 1 [place] [id number] Erika Acevedo [id number] Evelina Acevedo 06/16/2021 1 [place] [id number] Erika Acevedo [id number] Evelina Acevedo 06/19/2021 1 [place] [id number] Erika Acevedo [id number] Evelinaher Acevedo Notes Date Note Type Note Provider [...] violence:denies Briseida Lenz MD [address], [place], [address], [facility] 06/08/2021 15:40:45 06/19/2021 text/html 50yo here for follow up menometrorrhagia. US this week showed heterogeneous uterus, otherwise normal, and left ovary with a 4cm simple cyst. Also nabothian cysts. needs EMB. Briseida Lenz MD [address], [place], [address], [facility] 06/22/2021 20:00:51 OBGyn Episode No OBEpisode recorded.
[2024-08-20 07:37] VITALS: BP 142/73; PULSE 77; RESP 18; TEMP 36.6; O2SAT 100
[2024-08-20] MEDS: LACTATED RINGERS 1,000 ML 150 ML IV CONT (07:50)
--- NOTE | 2024-08-20 08:13 | P.PNAN_ITS ---
Anes - Initial Pre Proc Eval Procedure: Operation Date: 08/20/24 07:30 Proposed Procedures p Esophagogastroduodenoscopy with Given's Capsule Deployment - Haile Pandey MD Date/Time: 08/20/24 08:13 Surgeon: Haile Pandey MD Pre Op Diagnosis: Iron deficiency anemia, unspecified Patient Data Age: 54 Gender: F Height: 1.6 m Weight: 103.1 kg Last Vital Signs Temp 97.9 F 08/20/24 07:37 Pulse 77 08/20/24 07:37 Resp 18 08/20/24 07:37 BP 142/73 H 08/20/24 07:37 Pulse Ox 100 08/20/24 07:37 O2 Del Method Room Air 08/20/24 07:37 Allergies Allergy/AdvReac Type Severity Reaction Status Date / Time albuterol (From Proventil Allergy Severe hives Verified 08/20/24 07:32 HFA) NSAIDS (Non-Steroidal AdvReac Unknown hx of Verified 08/20/24 07:32 Anti-Inflamma ulcers Home Medications ?Medication ?Instructions ?Recorded ?Confirmed ?Type albuterol sulfate 90 mcg/actuation 1 inh inhalation Q4H PRN shortness 10/28/21 08/09/24 Rx aerosol inhaler (ProAir HFA) of breath or wheezing #8.5 grams buspirone 10 mg tablet 10 mg PO TID #270 tabs 07/03/23 08/09/24 Rx pantoprazole 40 mg tablet,delayed 40 mg PO BID #180 tabs 03/21/24 08/09/24 Rx release (Protonix) montelukast 10 mg tablet See Rx Instructions .Route 05/02/24 08/09/24 Rx .COMPLEX #90 tabs ondansetron 8 mg disintegrating 8 mg PO Q12H #14 tabs 06/06/24 08/09/24 Rx tablet aspirin 81 mg capsule 81 mg PO DAILY 06/19/24 08/09/24 History fluoxetine 60 mg tablet 60 mg PO DAILY #90 tabs 07/03/24 08/09/24 Rx Patient hx anesthesia problems: none Family hx anesthesia problems: none Results Review: All pre-operative results and documents have been reviewed as part of the pre- operative evaluation. [facility] Past Medical History Medical History Endometriosis Gastric ulcer Wears glasses Iron deficiency anemia Profound anemia Bipolar disorder Depression GERD (gastroesophageal reflux disease) Asthma Surgical History Surgical History H/O endoscopy H/O colonoscopy Family History Family History Mother High cholesterol Sibling Adverse reaction to anesthetic agent ADHD (attention deficit hyperactivity disorder) Depression Grandparent Ovarian cancer Social History Social History Social History: The patient is lives with her in [place]. She designates her , Ankit, as her surrogate decision maker and she wishes to be a full code. She is a lifelong nonsmoker and denies alcohol and drug abuse. 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 Gender identity (if verbalized by the patient): Female Spiritual care concerns: No Agree to blood products: Yes Anes - Eval Final PreProcedure Day of Procedure 08/20/24 08:13 Patient weight: morbidly obese Lungs: normal air movement Airway: Mallampati scale class II Neurological: alert and oriented Last oral intake: >/= 8 hours ASA classification: III Emergent: no Anesthetic plan: proceed Anesthesia type and monitoring: general GIVS and standard monitoring Results Review: All pre-operative results and documents have been reviewed as part of the pre- operative evaluation. BMI 40, asthma, snores, no known YASMIN, anemia, now for EGD w capsule. Informed Consent: The patient's anesthetic plan and its attendant risks and benefits were discussed with the patient/family/POA. Questions were solicited and answers pro vided to the satisfaction of the patient/family/POA.
--- NOTE | 2024-08-20 08:15 | P.HP_ITS ---
History of Present Illness History of Present Illness Consent: Risks, benefits, and alternatives have been discussed and questions answered. Patient agrees to proceed with procedure. Chief complaint: Iron deficiency anemia, unspecified Narrative: Evelina Acevedo is a 54 year old female with dulce, had recent egd and colonoscopy, noted gastritis, also esophageal ring that was dilated using CRE balloon, that resolved her dysphagia. Here to have capsule endoscopy but will be deployed using EGD given h/p ring. Denies overt gib Review of Systems Review of Systems: All systems reviewed & are unremarkable except as noted in HPI and below PMFSH Past Medical History Medical History Endometriosis Gastric ulcer Wears glasses Iron deficiency anemia Profound anemia Bipolar disorder Depression GERD (gastroesophageal reflux disease) Asthma Surgical History Surgical History H/O endoscopy H/O colonoscopy Family History Family History Mother High cholesterol Sibling Adverse reaction to anesthetic agent ADHD (attention deficit hyperactivity disorder) Depression Grandparent Ovarian cancer Social History Social History Social History: The patient is lives with her in [place]. She designates her , Ankit, as her surrogate decision maker and she wishes to be a full code. She is a lifelong nonsmoker and denies alcohol and drug abuse. 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 [employer] Gender identity (if verbalized by the patient): Female Spiritual care concerns: No Agree to blood products: Yes Meds Home Medications and Allergies Home Medications ?Medication ?Instructions ?Recorded ?Confirmed ?Type albuterol sulfate 90 mcg/actuation 1 inh inhalation Q4H PRN shortness 10/28/21 08/09/24 Rx aerosol inhaler (ProAir HFA) of breath or wheezing #8.5 grams buspirone 10 mg tablet 10 mg PO TID #270 tabs 07/03/23 08/09/24 Rx pantoprazole 40 mg tablet,delayed 40 mg PO BID #180 tabs 03/21/24 08/09/24 Rx release (Protonix) montelukast 10 mg tablet See Rx Instructions .Route 05/02/24 08/09/24 Rx .COMPLEX #90 tabs ondansetron 8 mg disintegrating 8 mg PO Q12H #14 tabs 06/06/24 08/09/24 Rx tablet aspirin 81 mg capsule 81 mg PO DAILY 06/19/24 08/09/24 History fluoxetine 60 mg tablet 60 mg PO DAILY #90 tabs 07/03/24 08/09/24 Rx Allergies Allergy/AdvReac Type Severity Reaction Status Date / Time albuterol (From Proventil Allergy Severe hives Verified 08/20/24 07:32 HFA) NSAIDS (Non-Steroidal AdvReac Unknown hx of Verified 08/20/24 07:32 Anti-Inflamma ulcers Vital Signs Vital Signs - 24 hr 08/20/24 07:37 Temperature 97.9 F Pulse Rate 77 Respiratory Rate 18 Blood Pressure 142/73 H Pulse Oximetry 100 Oxygen Delivery Room Air Exam Const: General: comfortable and no acute distress HENMT: Face/Nose/Sinus: Normal nares present Eyes: General: appearance normal, both eyes and all related structures Neck: Neck: no JVD Resp: Auscultation: clear to auscultation bilaterally Cardio: Rate: regular rate Rhythm: regular rhythm GI: Inspection: non-distended GI Palp: Yes Soft to palpation Skin: General skin exam: normal color Neuro: General: gait normal Speech: normal speech Extrem: General: normal to inspection Psych: Mental Status: mental status grossly normal Assessment and Plan Assessment and plan (1) Iron deficiency anemia: Qualifiers: Iron deficiency anemia type: unspecified iron deficiency Qualified Code(s): D50.9 - Iron deficiency anemia, unspecified Code(s): D50.9 - Iron deficiency anemia, unspecified Status: Acute Assessment and Plan: egd to deploy capsule endoscopy to assess small bowel
[2024-08-20 08:26] VITALS: BP 126/60; PULSE 82; RESP 18; O2SAT 93
[2024-08-20 08:36] VITALS: BP 124/79; PULSE 81; RESP 18; O2SAT 98
[2024-08-20 08:46] VITALS: BP 128/84; PULSE 75; RESP 18; O2SAT 99
--- NOTE | 2024-08-20 16:15 | SUR.PHASEII ---
Patient returned to the GI Lab at 1615 for recorder box removal. Patient voiced no complaints. States they have understanding of instructions. Patient left ambulatory.
--- OUTSIDE RECORDS SUMMARY | 2024-08-21 11:22 | XMS_ITS | Data Portability ---
Author Organization [place] - [facility] [employer] [facility], Main Office Address [address] [place] [address] Care Team Providers Care Vest Busheler Name Role Phone SETH CARDOZO Primary Care Provider JULIANEJENNIFERA Referring Provider [phone] Assessment Encounter Date Assessment Date Assessment LastModified [...] for R knee pain. Thanks 2024 025 [facility], [address], [place], [address], 08/17/2024 12:32:56 Procedures injection /aspirati on joint/bur sa (PROC) 2024 025 [email or web address] 1 In-Office Order, Internal Use Only DO Not Attach Compendium DO Not Attach Compendium, Do Not Delete/merge, [id number] 08/17/2024 11:56:02 Surgeries None recorded. Imaging XR, knee, 3 view 2024 025 [email or web address] 1 [facility] [place], [address], [place], [address], 08/17/2024 12:10:32 Medication Orders bupivacai ne HCl 0.5 % (5 mg/mL) injection solution [email or web address] [id number], [address] [place], [address], 08/17/2024 12:06:07 Kenalog 10 mg/mL suspensio n for injection [email or web address] [id number], [address] [place], [address], 08/17/2024 12:06:07 prednison e 10 mg tablets in a dose pack [address] [email or web address] [id number], [address] [place], [address], 08/17/2024 12:06:07 Patient TargetsNo targets recorded. Patient [...] more view No observ ation record ed. [id number] [facility] [place] [address], [place], [address], 06/16/2022 23:42:35 08/15/19 25 08/06/2024 XR, knee, 4 or more view No observ ation record ed. [email or web address] Not Available 2024 10:25:55 08/18/19 25 XR, knee, 3 view No observ ation record ed. [email or web address] [facility] [place] [address] [facility] [address] [place], [address], 08/17/2024 12:04:08 Result Notes None recorded. Problems Name Problem SNOMED Code Status Onset Date Resolution Date Notes Provider Name and Address Organization Details Recorded Time Pain of knee region 3415938653 Active 2024 Marli Bella CNA [facility], [facility] 11:34:34 Osteoarthri tis of right knee joint 3543068352078 00 Active 2024 BILL Heredia [address] [facility], [facility] [address], [place], [address] [facility] 12:04:39 Problem Notes None recorded. Procedures Surgical History Date Name Laterality Status Provider Name and Address Organization Details Recorded Time Colonoscopy completed Marli Bella CNA [facility] 08/17/2024 11:33:46 Imaging Results Imaging Date Name Status LastModified by Organiz ation Details LastModified Time 12/23/2020 XR, ankle, 3 or more view completed [id number] [facility] [place] [address] [facility] [address], [address], 06/16/2022 23:42:35 08/06/2024 XR, knee, 4 or more view completed [email or web address] Information not available 08/14/2024 10:25:55 08/17/2024 XR, knee, 3 view completed [email or web address] [facility] [place] [address] [facility] [address], [place], [address], 08/17/2024 12:04:08 Procedure Notes None recorded. Medical Equipment None Reported. Allergies Allergen ID Allergen Name Allergen Category Reaction Reaction Severity Criticality Documentation Date Start Date Code Code System Note Provider Name and Address Organization Details Recorded Time 45508 albuterol sulfate medicatio n hives Not available Not available 06/16/2022 72513 3 RxNorm Not Available [facility] 23:42:19 Medications Name Sig Start Date Stop [...] Updated DateTime 12/09/2020 36.1 kg/m2 160.02 cm 78560.84 g Not Available [facility] 06/16/2022 23:37:36 Date Recorded Body height Provider Name an d Address Organization Details Last Updated DateTime 12/23/2020 160.02 cm Not Available [facility] 23:37:36 Date Recorded Body height Provider Name an d Address Organization Details Last Updated DateTime 01/29/2021 160.02 cm Not Available [facility] 23:37:36 Date Recorded Body height Body mass index (BMI) Body weight Provider Name and Address Organization Details Last Updated DateTime 08/17/2024 160.02 cm 36.3 kg/m2 44346.44 g ARGELIA Posey [place] [facility] 08/17/2024 11:30:23 Social History Question Answer Notes LastModified by Organizat ion Details LastModified Time Tobacco Smoking Status Never Smoker Not Available [facility] 06/16/2022 23:35:37 What Is Your Level Of Alcohol Consumption? None [id number] Information not available 06/16/2022 Sex: Unknown Functional Status None recorded. Mental Status None recorded. Family History Relationship Description Onset Age of this Age Resolved Age Notes LastModified by Organization Details LastModified Time Maternal Grandmother Family history of stroke [email or web address] Not available 2024 11:33:18 Unspecified Relation Family history of malignant neoplasm grandm other [id number] Not available 06/16/2022 23:35:49 Medical History Condition Response ULCERS Y Blood Disorder Y ANEMIA/BLOOD DISORDER Y Gynecological HistoryNo gynecological history recorded. Obstetrics History GPAL:G 0 P 0 0 0 0 Past Encounters Encounter ID Performer Location Encounter Start Date Encounter Closed Date Diagnosis/Indication Diagnosis SNOMED-CT Code Diagnosis ICD10 Code Diagnosis Note [id number] BILL Heredia [facility] [place] [address] [facility] [address] [place] [address] 12/09/2020 00:00:00 12/09/2020 14:29:23 [id number] BILL Heredia [facility] [place] [address] [facility] [address] [place] [address] 12/23/2020 00:00:00 12/23/2020 15:21:53 [id number] BILL Heredia [facility] [place] [address] [facility] [address] [place] [address] 01/29/2021 00:00:00 01/29/2021 09:35:51 [id number] Genaro Mar MD [facility] [place] [address] [facility] [address] [place] [address] 08/17/2024 11:17:17 08/17/2024 12:10:32 Pain of knee region 4965125850 M25.561 Osteoarthr itis of right knee joint 3717908065 80600 M17.11 Health Concerns Section Related Observation LastModified by Organization Detai ls LastModified Time None Recorded Concern Status LastModified by Organization Details LastModified Time None Recorded Advance Directives Directive None Recorded Payers Encounter Date Sequence Insurance Name Policy Number Policy Roman Covered Member ID Roman Member ID Guarantor Name 08/17/2024 1 [employer] YONATAN AREVALO (PPO) [id number] B Evelina Acevedo [id number] Evelina Acevedo Notes Date Note Type [...] today with the patient. BILL [facility] [address] [facility], [facility] [address], [place], [address], [place] [facility] [employer] [facility] 08/17/2024 12:05:35 OBGyn Episode No OBEpisode recorded.
--- OUTSIDE RECORDS SUMMARY | 2024-08-21 11:22 | XMS_ITS | Clinical Summary ---
Author Organization [facility] Ophelia alex [facility] Address [address] [facility] [place] [address] Care Team Providers Care Sole Trimmer Name Role Phone Deb Tanner MD Primary Care Provider [phone] Allergies Active Allergy Reactions Criticality Noted Date [...] Device Data STL ABSTRACTION Provider, Abstract 07/22/2024 [facility] Oncology and Hematology - [place] [address] [place] [address] Manpreet Davis MD Anemia due to vitamin B12 deficiency, unspecified B12 deficiency type 07/04/2024 External Device Data STL ABSTRACTION Provider, Abstract 06/23/2024 External Device Data STL ABSTRACTION Provider, Abstract 06/22/2024 External Device Data STL ABSTRACTION Provider, Abstract 06/21/2024 [facility] Oncology and Hematology - [place] [address] [place] [address] Manpreet Davis MD Anemia due to vitamin B12 deficiency, unspecified B12 deficiency type 06/19/2024 External Device Data STL ABSTRACTION Provider, Abstract 06/12/2024 [facility] Oncology and Hematology - [place] [address] [place] [address] Manpreet Davis MD Anemia due to vitamin B12 deficiency, unspecified B12 deficiency type 06/05/2024 External Device Data STL ABSTRACTION Provider, Abstract 06/01/2024 Abstract [facility] Oncology and Hematology - [place] [address] [place] [address] Manpreet Davis MD 05/29/2024 Abstract [facility] Oncology and Hematology - [place] [address] [place] [address] Manpreet Davis MD from Last 3 Months [...] on file 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 Gender Identity Not on file Sexual Orientation [...] Description 09/24/2024 2:15 PM CDT Office Visit [facility] Oncology and Hematology - [place] [address] [facility] [address] [place] [address] Manpreet Davis MD [address] [facility] [employer] [address] [place] [address] Health Maintenance Due Date Last [...] 2023 Insurance [employer]BS BLUE ACCESS/TRUE BLUE PPO [facility] BLUE ACCESS/TRUE BLUE PPO Care Teams Sole Trimmer Relationship Specialty Start Date End Date Deb Tanner MD [address] [place] [phone] PCP - General Family Practice 06/25/21
--- OUTSIDE RECORDS SUMMARY | 2024-08-21 11:22 | XMS_ITS | Clinical Summary ---
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
--- OUTSIDE RECORDS SUMMARY | 2024-08-21 11:22 | XMS_ITS | Data Portability ---
Author Organization [facility] Address [address] [place] [address] [place] [address] Care Team Providers Care Historic Interpreter Name Role Phone SETH CARDOZO Primary Care Provider [phone] Assessment Encounter Date Assessment Date Assessment LastModified by Organization Details LastModified Time 06/08/2021 06/08/2021 suspect perimenopausal, but discussed need to r/o hyperplasia or malignancy of endometrium will schedule US will do EMB with FU visit will start Chug jillian for libido discussed either antidepressants or HRT for symptomatic treatment of menopause. May not have estrogen until EMB benign, and does not have hotflashes yet. encouraged to contact PCP or maybe get psych consult re irritability since already on high dose prozac. WWE scheduled next month [email or web address] Not available 06/08/2021 15:40:29 06/19/2021 06/19/2021 Discussed US results in depth. Left ovarian cyst simple and should not require follow up unless sx. Should resolve. Discussed nabothian cysts also. EMB done, will contact with results. Not available 06/22/2021 20:00:27 Plan of Treatment Reminders Order Date Submit Date Provider Last Modified By Organization Details Last Modified Time Details Appointments None recorded. Lab None recorded. Referral None recorded. Procedures None recorded. Surgeries None recorded. Imaging US, pelvis 2021 022 [facility], [address], [address], [place], [address], 15:38:58 [facility], [facility]agina l [facility] [address], [address], [place], [address], 16:00:11 Medication Orders None recorded. Patient TargetsNo [...] Gross ed by Selvin Pittman Not Available [facility] (Lab) [address], [place], [address], 06/22/2021 16:26:25 06/17/19 22 06/16/2021 US, pelvi s No observ ation record ed. [email or web address] [place] [address], [place], [address], 06/16/2021 15:59:55 06/17/19 22 06/16/2021 US, trans vagin al No observ ation record ed. [facility] [place] [address], [place], [address], 06/16/2021 16:00:11 06/17/19 22 06/16/2021 US, pelvi s No observ ation record ed. lee ann Erika [address], [place], [address], 06/23/2021 11:37:40 Result Notes None recorded. Problems Name Problem SNOMED Code Status Onset Date Resolution Date Notes Provider Name and Address Organization Details Recorded Time Finding of regulari ty of menstrua l cycle Completed 201706/08/2021 Irregula r bleeding ;Recorde d Elsewher e: No [facility]at [facility]: EHR Merit System Director juan: N Dav ce ID: [email or web address] Adrian lable Time: 11:15:00 AM MD [address], [place], [address], [facility] 15:06:32 Pregnanc y test negative [id number] Completed 201706/08/2021 Encounte r for pregnanc y test, result negative ;Recorde d Elsewher e: No Locat ion: [facility] S ource: EHR Merit System Director juan: N Dav ce ID: [id number] Adrian lable Time: 11:15:00 AM Briseida Lenz MD [address], [place], [address], [facility] [address] 15:06:[address] Concept Completed 201706/08/2021 Encntr for records administrator exam (general ) (routine ) w/o abn findings ;Recorde d Elsewher e: No Locat ion: Arturo blue [facility] S ource: EHR Merit System Director juan: N Practi ce ID: [id number] Adrian lable Time: 11:15:00 AM Briseida Lenz MD [address], [place], [address], [facility] 2 15:06:36 Body mass index 40+ - severely obese 482153425 Active 2021 Briseida Lenz MD [address], [place], [address], [facility] 2 15:40:19 Problem Notes None recorded. Procedures Surgical History Date Name Laterality Status Provider Name and Address Organization Details Recorded Time 06/20/19 Endometrial Biopsy completed Briseida Lenz MD [address], [place], [address], [facility] 06/22/2021 19:59:18 07/14/19 18 Date of Last Pap Smear completed [facility]ia Mckeon [facility] 06/08/2021 15:07:08 Imaging Results Imaging Date Name Status LastModified by Organization Details LastModified Time 06/16/2021 US, pelvis completed [email or web address] Mike [address], [place], [address], 06/16/2021 15:59:55 06/16/2021 US, transvaginal completed [email or web address] [address], [place], [address], 06/16/2021 16:00:11 06/16/2021 US, pelvis completed layran Erika [address], [place], [address], 06/23/2021 11:37:40 Procedure Notes None recorded. Medical Equipment None Reported. Allergies Allergen ID Allergen Name Allergen Category Reaction Reaction Severity Criticality Documentation Date Start Date Code Code System Note Provider Name and Address Organization Details Recorded Time albuterol medicatio n Not available Not available Not available 06/08/2021 435 RxNorm Tashia chanel [place] - [facility] 2 15:06:07 Medications [...] Prescrib ed Elsewher e: Yes Loca tion: [facility] M odify By: tracey Gorete r DateTime : 07/14/19 18 11:15:00 AM Not Available Not Available Not Available monteluka st 10 mg tablet TAKE 1 TABLET BY MOUTH EVERY DAY active Not Available Not Available No t Available ranitidin e 150 mg capsule take 1 capsule by oral route 2 times every day 06/08 completed Prescrib ed Elsewher e: Yes Loca tion: [facility] M odify By: tracey Encounte r DateTime [...] Updated DateTime 06/08/2021 160.02 cm 42.3 kg/m2 035563.5 8 g 132 mm[Hg] 84 mm[Hg] [facility] 2 15:03:03 Date Recorded Body height Body mass index (BMI) Body weight Systolic blood pressure Diastolic blood pressure Provider Name and Address Organization Details Last Updated DateTime 06/19/2021 160.02 cm 41.8 kg/m2 198899.8 g 130 mm[Hg] 84 mm[Hg] [facility] 14:06:28 Social History Question Answer Notes LastModified by Organizat ion Details LastModified Time Tobacco Smoking Status Never Smoker [facility] 06/08/2021 14:41:15 What Is Your [...] SNOMED-CT Code Diagnosis ICD10 Code Diagnosis Note [id number] Briseida Lenz MD [place] [address] [place] [address] 06/08/2021 14:24:15 06/08/2021 15:47:12 Menometrorrhagia 563250057 N92.1 Mood disorder 35412244 F 39 Reduced libido 7765654 R 68.82 Body mass index 40+ - severely obese 634049570 Z68.41 [id number] Briseida Lenz MD [place] [address] [place] [address] 06/16/2021 14:33:50 06/16/2021 15:27:22 Menometrorrhagia 768879417 N92.1 [id number] Briseida Lenz MD [place] [address] [place] [address] 06/19/2021 13:30:04 06/23/2021 16:29:58 Menometrorrhagia 697817699 N92.1 Cyst of left ovary 00097 95818 2533217 N83.202 Health Concerns Section Related Observation LastModified by Organization Detai ls LastModified Time None Recorded Concern Status LastModified by Organization Details LastModified Time None Recorded Advance Directives Directive None Recorded Payers Encounter Date Sequence Insurance Name Policy Number Policy Roman Covered Member ID Roman Member ID Guarantor Name 06/08/2021 1 [place] [id number] Erika Acevedo [id number] Evelina Acevedo 06/16/2021 1 [place] [id number] Erika Acevedo [id number] Evelina Acevedo 06/19/2021 1 [place] [id number] Erika Acevedo [id number] Evelinaher Acevedo Notes Date Note Type [...] violence:denies Briseida Lenz MD [address], [place], [address], [facility] 06/08/2021 15:40:45 06/19/2021 text/html 50yo here for follow up menometrorrhagia. US this week showed heterogeneous uterus, otherwise normal, and left ovary with a 4cm simple cyst. Also nabothian cysts. needs EMB. Briseida Lenz MD [address], [place], [address], [facility] 06/22/2021 20:00:51 OBGyn Episode No OBEpisode recorded.
== END 2024-08-20 09:00 | disposition home or self-care (01) ==
PROVIDERS: PCP Family Medicine; Referring Provider Internal Medicine Gastroenterology; Visit Provider Internal Medicine Gastroenterology
PROC: 0DJ08ZZ Inspection of Upper Intestinal Tract, Via Natural or Artificial Opening Endoscopic (ICD-10-PCS; CPT 43235; principal; 2024-08-20 07:30)
DX: K22.2 Esophageal obstruction (principal); K44.9 Diaphragmatic hernia without obstruction or gangrene; K31.89 Other diseases of stomach and duodenum; D50.9 Iron deficiency anemia, unspecified; N80.9 Endometriosis, unspecified; F31.9 Bipolar disorder, unspecified; K21.9 Gastro-esophageal reflux disease without esophagitis; J45.909 Unspecified asthma, uncomplicated; E66.01 Morbid (severe) obesity due to excess calories; Z68.41 Body mass index [BMI] 40.0-44.9, adult; Z79.51 Long term (current) use of inhaled steroids; Z79.82 Long term (current) use of aspirin; Z98.890 Other specified postprocedural states; Z87.19 Personal history of other diseases of the digestive system; Z80.41 Family history of malignant neoplasm of ovary
CPT/HCPCS: 43235; J2704; J7120

== ENCOUNTER 2024-09-09 12:08 | Emergency (ER) | payer BC, SELFPAY ==
--- NOTE | ~2024-09-09 | XR_ITS ---
CHEST RADIOGRAPH, PA AND LATERAL CLINICAL HISTORY: CP MID STERNAL SOB CHILLS X SEVERAL DAYS . COMPARISON: 12/27/2022 TECHNIQUE: PA and lateral views of the chest. FINDINGS Large hiatal hernia is redemonstrated, with an air-fluid level. The remainder of the cardiomediastinal silhouette is otherwise unremarkable. The lungs are clear. IMPRESSION: No focal infiltrate or effusion. Reviewed, dictated and finalized at location A.
--- OUTSIDE RECORDS SUMMARY | 2024-09-09 12:10 | XMS_ITS | Data Portability ---
Author Organization [place] [facility] [place] [employer] [facility], Main Office Address [address] [place] [address] Care Team Providers Care Naturalization Examiner Name Role Phone SETH CARDOZO Primary Care [...] for R knee pain. Thanks 2024 025 [facility], [address], [place], [address], 08/17/2024 12:32:56 Procedures injection /aspirati on joint/bur sa (PROC) 2024 025 [email or web address] 1 In-Office Order, Internal Use Only DO Not Attach Compendium DO Not Attach Compendium, Do Not Delete/merge, [id number] 08/17/2024 11:56:02 Surgeries None recorded. Imaging XR, knee, 3 view 2024 025 [email or web address] 1 [facility] [place], [address], [place], [address], 08/17/2024 12:10:32 Medication Orders bupivacai ne HCl 0.5 % (5 mg/mL) injection solution 2024 025 [email or web address] [facility], [address] [place], [address], 08/17/2024 12:06:07 Kenalog 10 mg/mL suspensio n for injection 2024 025 no6 [facility]2510, [address] [place], [address], 08/17/2024 12:06:07 prednison e 10 mg tablets in a dose pack 2024 025 [email or web address] [facility]arm[facility]2510, [address] [place], [address], 08/17/2024 12:06:07 Patient TargetsNo targets recorded. Patient InstructionsNo instructions recorded. Reason for Referral Physical Therapist Referral for Pain of knee region R knee pain Please schedule pt for R knee pain. Thanks Referring Physician: Stew rOozco, Orthopedic Surgery, Encounter Date: 08/17/2024 Results Created Date Observation Date Name Description Value Unit Range Abnormal Flag Note LastModifiedBy Organization Detail LastModifiedTime 12/24/19 21 XR, ankle , 3 or more view No observ ation record ed. [id number] [facility] [place] [address], [place], [address], 06/16/2022 23:42:35 08/15/19 25 08/06/2024 XR, knee, 4 or more view No observ ation record ed. [email or web address] Not Available 2024 10:25:55 08/18/19 25 XR, knee, 3 view No observ ation record ed. [email or web address] [facility] [place] [address] [facility] [address], [address], 08/17/2024 12:04:08 Result Notes None recorded. Problems Name Problem SNOMED Code Status Onset Date Resolution Date Notes Provider Name and Address Organization Details Recorded Time Pain of knee region 4498411459 Active 2024 Marli Bella CNA [facility] [place] 11:34:34 Osteoarthri tis of right knee joint 0770552404793 00 Active 2024 BILL Heredia [address] [facility], [facility] [address], [place], [address] [facility] [place] 12:04:39 Problem Notes None recorded. Procedures Surgical History Date Name Laterality Status Provider Name and Address Organization Details Recorded Time Colonoscopy completed Marli Bella CNA [place] 08/17/2024 11:33:46 Imaging Results Imaging Date Name Status LastModified by Organiz ation Details LastModified Time 12/23/2020 XR, ankle, 3 or more view completed [id number] [facility] [place] [address] [facility] [address], [address], 06/16/2022 23:42:35 08/06/2024 XR, knee, 4 or more view completed [email or web address] Information not available 08/14/2024 10:25:55 08/17/2024 XR, knee, 3 view completed [email or web address] [facility] [place] [address] [facility] [address], [place], [address], 08/17/2024 12:04:08 Procedure Notes None recorded. Medical Equipment None Reported. Allergies Allergen ID Allergen Name Allergen Category Reaction Reaction Severity Criticality Documentation Date Start Date Code Code System Note Provider Name and Address Organization Details Recorded Time 94171 albuterol sulfate medicatio n hives Not available Not available 06/16/2022 03265 3 RxNorm Not Available [facility] 23:42:19 Medications Name Sig Start Date Stop [...] Updated DateTime 12/09/2020 36.1 kg/m2 160.02 cm 89045.84 g Not Available [facility] 06/16/2022 23:37:36 Date Recorded Body height Provider Name an d Address Organization Details Last Updated DateTime 12/23/2020 160.02 cm Not Available [facility] 23:37:36 Date Recorded Body height Provider Name an d Address Organization Details Last Updated DateTime 01/29/2021 160.02 cm Not Available [facility] 23:37:36 Date Recorded Body height Body mass index (BMI) Body weight Provider Name and Address Organization Details Last Updated DateTime 08/17/2024 160.02 cm 36.3 kg/m2 70293.44 g ARGELIA Posey [facility] [employer] [facility] 08/17/2024 11:30:23 Social History None recorded. Functional Status Question Answer Note LastModified by Organizat ion Details LastModified Time What is your level of alcohol consumption? None [id number] Information not available 06/16/2022 Mental Status None recorded. Family History Relationship Description Onset Age of this Age Resolved Age Notes LastModified by Organization Details LastModified Time Maternal Grandmother Family history of stroke [email or web address] Not available 2024 11:33:18 Unspecified Relation Family history of malignant neoplasm grandm other [id number] Not available 06/16/2022 23:35:49 Medical History Condition Response ULCERS Y Blood Disorder Y ANEMIA/BLOOD DISORDER Y Gynecological HistoryNo gynecological history recorded. Obstetrics History GPAL:G 0 P 0 0 0 0 Past Encounters Encounter ID Performer Location Encounter Start Date Encounter Closed Date Diagnosis/Indication Diagnosis SNOMED-CT Code Diagnosis ICD10 Code Diagnosis Note [id number] BILL Heredia [facility] [place] [address] [place], [place] [address] 12/09/2020 00:00:00 12/09/2020 14:29:23 [id number] BILL Heredia [facility] [place] [address] [place] [address] 12/23/2020 00:00:00 12/23/2020 15:21:53 [id number] BILL Heredia [facility] [place] [address] [place] [address] 01/29/2021 00:00:00 01/29/2021 09:35:51 [id number] Genaro Mar MD [facility] [place] [address] [facility] [address] [place], [place] [address] 08/17/2024 11:17:17 08/17/2024 12:10:32 Pain of knee region 9716713283 M25.561 Osteoarthr itis of right knee joint 0001179556 53308 M17.11 Health Concerns Section Related Observation LastModified by Organization Detai ls LastModified Time None Recorded Concern Status LastModified by Organization Details LastModified Time None Recorded Advance Directives Directive None Recorded Payers Encounter Date Sequence Insurance Name Policy Number Policy Roman Covered Member ID Roman Member ID Guarantor Name 08/17/2024 1 [employer]: YONATAN AREVALO (PPO) [id number] Erika Acevedo [id number] Evelina Acevedo Notes Date Note Type [...] today with the patient. BILL Heredia [address] [facility], [facility] [address], [place], [address], [place] [facility] [place] [employer] 08/17/2024 12:05:35 OBGyn Episode No OBEpisode recorded.
--- OUTSIDE RECORDS SUMMARY | 2024-09-09 12:10 | XMS_ITS | Clinical Summary ---
Author Organization [facility] Care Team Providers Care Machine Finisher Name Role Phone Unavailable Primary Care Provider Unavailabl e Social History Tobacco Use Types Packs/Day Years Used Date Smoking Tobacco: Never Assessed Comments Unknown Sex and Gender Information Value Date Recorded Sex Assigned at Not on file Legal Sex Female 10:59 AM AIDS COUNSELOR Gender Identity Not on file Sexual Orientation [...]
--- OUTSIDE RECORDS SUMMARY | 2024-09-09 12:10 | XMS_ITS | Encounter Summary ---
Author Organization [facility] Address [address] [place] [address] Care Team Providers Care Coupler Name Role Phone Deb Tanner MD Primary Care Provider [phone] Encounter Details Date Type Department Care Team (Late st Contact Info) Description 09/06/2024 External Device Data STL ABSTRACTION Provider, Abstract NO ADDRESS ON FILE Social History Tobacco Use Types Packs/Day Years Used Date Smoking Tobacco: Never Smokeless Tobacco: Never Alcohol Use Standard Drinks/Week Comments Yes 0 (1 standard drink = 0.6 oz pur e alcohol) occasional Comments Unknown Sex and Gender Information Value Date Recorded Sex Assigned at Not on file 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 Gender Identity Not on file Sexual Orientation Not on file documented as of this encounter Plan of Treatment Upcoming Encounters Date Type Department Care Team (Late st Contact Info) Description 09/24/2024 2:15 PM CDT Office Visit [facility] Oncology and Hematology - [place] [address] [place] [address] [address] Manpreet Davis MD [address] [place] [address] documented as of this encounter Visit Diagnoses Not on filedocumented in this encounter Care Teams Coupler Relationship Specialty Start Date End Date Deb Tanner MD [address] [place] [address] PCP - General Family Practice 3/10/22 documented as of this encounter
--- OUTSIDE RECORDS SUMMARY | 2024-09-09 12:11 | XMS_ITS | Clinical Summary ---
Author Organization [facility]i [facility] Address [address] [facility] [place] [address] Care Team Providers Care Skin Grader Name Role Phone Deb Tanner MD Primary [...] Encounters Date Type Department Care Team Description 09/06/2024 External Device Data STL ABSTRACTION Provider, Abstract 09/05/2024 External Device Data STL ABSTRACTION Provider, Abstract 09/04/2024 External Device Data STL ABSTRACTION Provider, Abstract 07/31/2024 External Device Data STL ABSTRACTION Provider, Abstract 07/22/2024 [facility] Oncology [facility] Hematology [facility] [address] [place] [address] Manpreet Davis MD Anemia due to vitamin B12 deficiency, unspecified B12 deficiency type 07/04/2024 External Device Data STL ABSTRACTION Provider, Abstract 06/23/2024 External Device Data STL ABSTRACTION Provider, Abstract 06/22/2024 External Device Data STL ABSTRACTION Provider, Abstract 06/21/2024 [facility] Oncology and Hematology [facility] [address] [place] [address] Manpreet Davis MD Anemia due to vitamin B12 deficiency, unspecified B12 deficiency type 06/19/2024 External Device Data STL ABSTRACTION Provider, Abstract 06/12/2024 [facility] Oncology [facility] Hematology [facility] [address] [place] [address] Manpreet Davis MD Anemia due to vitamin B12 deficiency, unspecified B12 deficiency type from Last 3 Months Family History Relation [...] on file 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 Gender Identity Not on file Sexual Orientation [...] Description 09/24/2024 2:15 PM CDT Office Visit [facility] Oncology and Hematology - [place] [address] [facility] [address] [place] [address] Manpreet Davis MD [address] [facility] [address] [place] [address] Health Maintenance Due Date Last [...] 2023 Insurance BCBS BLUE ACCESS/TRUE BLUE PPO [facility] BLUE ACCESS/TRUE BLUE PPO Care Teams Skin Grader Relationship Specialty Start Date End Date Deb Tanner MD [address] [place] [address] PCP - General Family Practice 06/25/21
--- OUTSIDE RECORDS SUMMARY | 2024-09-09 12:11 | XMS_ITS | Data Portability ---
Author Organization [facility] Address [address] [place] [place] [address] [address] Care Team Providers Care Technology Adoption Manager Name Role Phone SETH CARDOZO Primary Care Provider [phone] Assessment Encounter Date Assessment Date Assessment LastModified by Organization Details LastModified Time 06/08/2021 06/08/2021 suspect perimenopausal, but discussed need to r/o hyperplasia or malignancy of endometrium will schedule US will do EMB with FU visit will start [facility] jillian for libido discussed either antidepressants or HRT for symptomatic treatment of menopause. May not have estrogen until EMB benign, and does not have hotflashes yet. encouraged to contact PCP or maybe get psych consult re irritability since already on high dose prozac. WWE scheduled next month [email or web address] Not available 06/08/2021 15:40:29 06/19/2021 06/19/2021 Discussed US results in depth. Left ovarian cyst simple and should not require follow up unless sx. Should resolve. Discussed nabothian cysts also. EMB done, will contact with results. [email or web address] Not available 06/22/2021 20:00:27 Plan of Treatment Reminders Order Date Submit Date Provider Last Modified By Organization Details Last Modified Time Details Appointments None recorded. Lab None recorded. Referral None recorded. Procedures None recorded. Surgeries None recorded. Imaging US, pelvis 2021 022 [facility], [address], [address], [place], [address], 15:38:58 [facility] [address], [address], [place], [address], 16:00:11 Medication Orders None recorded. Patient TargetsNo [...] ed by Selvin Pittman Not Available [facility] (Lab) [address], [place], [address], 06/22/2021 16:26:25 06/17/19 22 06/16/2021 US, pelvi s No observ ation record ed. [facility] [address], [place], [address], 06/16/2021 15:59:55 06/17/19 22 06/16/2021 US, trans vagin al No observ ation record ed. [email or web address] [address], [place], [address], 06/16/2021 16:00:11 06/17/19 22 06/16/2021 US, pelvi s No observ ation record ed. lee ann Erika [address], [place], [address], 06/23/2021 11:37:40 Result Notes None recorded. Problems Name Problem SNOMED Code Status Onset Date Resolution Date Notes Provider Name and Address Organization Details Recorded Time Finding of regulari ty of menstrua l cycle Completed 201706/08/2021 Irregula r bleeding ;Recorde d Elsewher e: No [facility]at ion[facility] our[facility]: [employer] Employee juan: N Dav ce ID: 0001 Adrian lable Time: 11:15:00 AM MD [address], [place], [address], [facility] 15:06:32 Pregnanc y test negative [id number] Completed 201706/08/2021 Encounte r for pregnanc y test, result negative ;Recorde d Elsewher e: No Locat ion: [facility] S ource: [employer] Employee juan: N Dav ce ID: 0001 Adrian lable Time: 11:15:00 AM Briseida Lenz MD [address], [place], [address], [facility] [address] 15:06:[address] Concept Completed 201706/08/2021 Encntr for rn prior authorization exam (general ) (routine ) w/o abn findings ;Recorde d Elsewher e: No Locat ion: [facility] S ource: [employer] Employee juan: N Practi ce ID: 0001 Adrian lable Time: 11:15:00 AM Briseida Lenz MD [address], [place], [address], [facility] 2 15:06:36 Body mass index 40+ - severely obese 295480117 Active 2021 Briseida Lenz MD [address], [place], [address], [facility] 2 15:40:19 Problem Notes None recorded. Procedures Surgical History Date Name Laterality Status Provider Name and Address Organization Details Recorded Time 06/20/19 22 Endometrial Biopsy completed Briseida Lenz MD [address], [place], [address], [facility] 06/22/2021 19:59:18 07/14/19 18 Date of Last Pap Smear completed Tashia Mckeon [facility] 06/08/2021 15:07:08 Imaging Results None recorded. Procedure Notes None recorded. Medical Equipment None Reported. Allergies Allergen ID Allergen Name Allergen Category Reaction Reaction Severity Criticality Documentation Date Start Date Code Code System Note Provider Name and Address Organization Details Recorded Time 47116 albuterol medicatio n Not available Not available Not available 06/08/2021 435 RxNorm Tashia chanel [facility] 2 15:06:07 Medications Name [...] Prescrib ed Elsewher e: Yes Loca tion: [facility] odify By: tracey Davis r DateTime : 07/14/19 18 11:15:00 AM Not Available Not Available Not Available monteluka st 10 mg tablet TAKE 1 TABLET BY MOUTH EVERY DAY active Not Available Not Available No t Available ranitidin e 150 mg capsule take 1 capsule by oral route 2 times every day 06/08 completed Prescrib ed Elsewher e: Yes Loca tion: [facility] odify By: tracey Davis r DateTime : 07/14/19 18 11:15:00 AM [...] Body mass index (BMI) Body weight Systolic And Diastolic Provider Name and Address Organization Details Last Updated DateTime 06/08/2021 160.02 cm 42.3 kg/m2 610030.58 g 132/84 mm[Hg] [facility] 06/08/2021 15:03:03 Date Recorded Body height Body mass index (BMI) Body weight Systolic And Diastolic Provider Name and Address Organization Details Last Updated DateTime 06/19/2021 160.02 cm 41.8 kg/m2 907426.8 g 130/84 mm[Hg] [facility] 06/19/2021 14:06:28 Social History Question Answer Notes LastModified by Organizat ion Details LastModified Time Tobacco Smoking Status Never Smoker T[facility]ia [facility], [facility] 06/08/2021 14:41:15 Have You Been To An Area Known To Be High Risk For COVID-19? No Information not available 06/08/2021 Have You Ever Been Counseled For Unhealthy Alcohol Use? No Information not available 06/08/2021 Has Tobacco Cessation Counseling Been Provided? No Information not available 06/08/2021 Sex: Unknown Functional Status Question Answer Note LastModified by Organizat ion Details LastModified Time Do you use any illicit or recreational drugs? No Information not available 06/08/2021 Do you or have you ever used any other forms of tobacco or nicotine? No Information not available 06/08/2021 What is your level of alcohol consumption? Occasional Information not available 06/08/2021 Mental Status None recorded. Family History Relationship [...] SNOMED-CT Code Diagnosis ICD10 Code Diagnosis Note [id number] Briseida Lenz MD [facility] [address] [address] 06/08/2021 14:24:15 06/08/2021 15:47:12 Menometrorrhagia 923405020 N92.1 Mood disorder 08815985 F 39 Reduced libido 6048365 R 68.82 Body mass index 40+ - severely obese 681071722 Z68.41 66796 Briseida Lenz MD [facility] [address],[place] [address] 06/16/2021 14:33:50 06/16/2021 15:27:22 Menometrorrhagia 484193090 N92.1 15682 Briseida Lenz MD [facility] [address],[place] [address] 06/19/2021 13:30:04 06/23/2021 16:29:58 Menometrorrhagia 965103264 N92.1 Cyst of left ovary 79641 93029 2176305 N83.202 Health Concerns Section Related Observation LastModified by Organization Detai ls LastModified Time None Recorded Concern Status LastModified by Organization Details LastModified Time None Recorded Advance Directives Directive None Recorded Payers Encounter Date Sequence Insurance Name Policy Number Policy Roman Covered Member ID Roman Member ID Guarantor Name 06/08/2021 1 [place] [id number] Erika Evelina Galicia Curtis [id number] Evelina Acevedo 06/16/2021 1 [place] [id number] Erika Evelina Galicia Curtis [id number] Evelina Acevedo 06/19/2021 1 [place] [id number] Erika Evelina Galicia Curtis [id number] Evelina Acevedo Notes Date Note Type [...] violence:denies Briseida Lenz MD [address], [place], [address], [facility] 06/08/2021 15:40:45 06/19/2021 text/html 50yo here for follow up menometrorrhagia. US this week showed heterogeneous uterus, otherwise normal, and left ovary with a 4cm simple cyst. Also nabothian cysts. needs EMB. Briseida Lenz MD [address], [place], [address], [facility] 06/22/2021 20:00:51 OBGyn Episode No OBEpisode recorded.
[2024-09-09 12:21] VITALS: BP 126/75; PULSE 91; RESP 18; TEMP 36.7; O2SAT 100
--- NOTE | 2024-09-09 12:31 | ECG_ITS ---
Test Date: 2024-09-09 12:51:19 Measurements Intervals [place] Rate: 88 P: -5 AR: 152 QRS: -24 QRSD: 97 T: -5 QT: 343 QTc: 417 Interpretive Statements SINUS RHYTHM BORDERLINE LEFT AXIS DEVIATION [QRS AXIS < -20] MODERATE VOLTAGE CRITERIA FOR LVH, CONSIDER NORMAL VARIANT [MEETS CRITERIA IN ONE OF: R(aVL), S(V1), R(V5), R(V5/V6)+S(V1)] ST DEPRESSION, CONSIDER INFERIOR AND LATERAL ISCHEMIA No previous ECG available for comparison Electronically Signed On 09-09-2024 20:46:33 CDT by Tera Acevedo M.D.
--- NOTE | 2024-09-09 12:40 | PC.NURSE ---
Pt. ambulatory to bathroom with a steady gait to provide urine sample.
--- NOTE | 2024-09-09 12:42 | PC.NURSE ---
Pt. to x-ray.
[2024-09-09 12:50] LABS: Alanine Aminotransferase 17 U/L (6-35); Albumin Level 4.2 g/dL (3.5-5.1); Alkaline Phosphatase 83 U/L (38-126); Anion Gap 10 mmol/L (4-12); Aspartate Amino Transferase 28 U/L (14-36); Bilirubin,Total 0.5 mg/dL (0.2-1.3); Blood Urea Nitrogen 17 mg/dL (7-17); Calcium 8.9 mg/dL (8.4-10.2); Carbon Dioxide 27 mmol/L (22-30); Chloride 100 mmol/L (98-107); Estimated CRCL calculation 111 ml/min; Estimated Glomerular Filt Rate > 60; Glucose 91 mg/dL (65-110); Lipase 123 U/L (23-300); Potassium 4.5 mmol/L (3.4-5.0); Sodium 137 mmol/L (137-145)
[2024-09-09 12:51] LABS: INR 0.9; Partial Thromboplastin Time 24.8 Seconds (22.3-36.8); Prothrombin Time 12.8 Seconds (11.1-14.7)
[2024-09-09 12:52] LABS: Basophils Absolute Auto 0.1 K/mm3 (0.0-0.1); Basophils Percent Auto 0.4 % (0.2-1.2); Eosinophils Absolute Auto 0.1 K/mm3 (0-0.3); Eosinophils Percent Auto 0.5 % (0-4.4); Hematocrit 29.1 % (37.0-47.0); Hemoglobin 7.9 g/dL (12.0-15.0); Immature Granulocyte Absolute 0.06 K/mm3 (0.00-0.031); Immature Granulocyte Percent A 0.5 % (0-0.5); Lymphocytes Absolute Auto 1.67 K/mm3 (0.9-3.2); Lymphocytes Percent Auto 13.8 % (18.3-44.2); Mean Corpuscular HGB Conc 27.1 g/dl (32-36); Mean Corpuscular Hemoglobin 17.5 pg (26-34); Mean Corpuscular Volume 64.5 fl (80-100); Mean Platelet Volume 8.9 fl (7.4-10.4); Monocytes Absolute Auto 0.7 K/mm3 (0.1-0.6); Monocytes Percent Auto 5.8 % (2.6-8.5); Neutrophils Absolute Auto 9.6 K/mm3 (1.3-6.7); Platelet Count Result 596 k/mm3 (150-375); Red Blood Count 4.51 M/mm3 (4.2-5.4); Red Cell Distribution Width 20.1 % (11.5-14.5); White Blood Count 12.1 K/mm3 (4.5-10.0)
[2024-09-09 13:01] LABS: Troponin I < 0.012 ng/mL (0.000-0.034)
--- OUTSIDE RECORDS SUMMARY | 2024-09-09 13:07 | XMS_ITS | Encounter Summary ---
Author Organization [facility] Address 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 Gender Identity Not on file Sexual Orientation Not on file documented as of this encounter Plan of Treatment Upcoming Encounters Date Type Department Care Team (Late st Contact Info) Description 09/24/2024 2:15 PM CDT Office Visit [facility] and [facility] - [place] [address] [place] [address] [address] Manrpeet Davis MD [address] [facility] [address] [place] [address] documented as of this encounter Visit Diagnoses Not on filedocumented in this encounter Care Teams Office Assistance Relationship Specialty Start Date End Date Deb Tanner MD [address] [place] [address] PCP - General Family Practice 3/10/22 documented as of this encounter
--- OUTSIDE RECORDS SUMMARY | 2024-09-09 13:07 | XMS_ITS | Clinical Summary ---
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
--- OUTSIDE RECORDS SUMMARY | 2024-09-09 13:07 | XMS_ITS | Clinical Summary ---
Author Organization [facility] Address [address] [facility] [place] [address] Care Team Providers Care Study Abroad Advisor Name Role Phone Deb Tanner MD Primary Care Provider [phone] Allergies Active Allergy Reactions Criticality Noted Date [...] Device Data STL ABSTRACTION Provider, Abstract 07/22/2024 [facility] Oncology [facility] Hematology [facility] [address] [place] [address] Manpreet Davis MD Anemia due to vitamin B12 deficiency, unspecified B12 deficiency type 07/04/2024 External Device Data STL ABSTRACTION Provider, Abstract 06/23/2024 External Device Data STL ABSTRACTION Provider, Abstract 06/22/2024 External Device Data STL ABSTRACTION Provider, Abstract 06/21/2024 [facility] Oncology and Hematology [facility] [address] [place] [address] Manpreet Davis MD Anemia due to vitamin B12 deficiency, unspecified B12 deficiency type 06/19/2024 External Device Data STL ABSTRACTION Provider, Abstract 06/12/2024 [facility] Oncology [facility] Hematology [facility] [address] [place] [address] Manpreet Davis MD Anemia due to vitamin [...] on file 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 Gender Identity Not on file Sexual Orientation [...] Description 09/24/2024 2:15 PM CDT Office Visit [facility] Oncology and Hematology - Daniel [address] [facility] [address] [place] [address] Manpreet Davis MD [address] [facility] [address] [place] [address] Health Maintenance Due Date Last [...] 2023 Insurance BCBS BLUE ACCESS/TRUE BLUE PPO [facility] BLUE ACCESS/TRUE BLUE PPO Care Teams Study Abroad Advisor Relationship Specialty Start Date End Date Deb Tanner MD [address] [place] [address] PCP - General Family Practice 06/25/21
[2024-09-09 13:08] LABS: Platelet Estimate Slightly Increased (Adequate)
[2024-09-09 13:10] LABS: Anisocytosis 1+; Hypochromasia 1+; Schistocytes None Seen
--- NOTE | 2024-09-09 13:44 | ED_ITS ---
HPI - General Adult General Chief complaint: Anxiety Stated complaint: chest pain, dyspnea, shakes Time Seen by Provider: 09/09/24 12:55 Source: patient Mode of arrival: ambulatory Limitations: no limitations History of Present Illness HPI narrative: 54 years old white female came to the ED by private car from home complaining of lot of stress lately, depression, intermittent chest tightness, jittery feeling inside, shaking outside, poor concentration for the last 3 days. Patient does not take any medication at home except for anxiety and depression. Does not smoke or drink or use drugs. Related Data Home Medications ?Medication ?Instructions ?Recorded ?Confirmed ?Last Taken ?Type aspirin 81 mg capsule 81 mg PO DAILY 06/19/24 08/09/24 06/27/24 History Allergies Allergy/AdvReac Type Severity Reaction Status Date / Time albuterol (From Proventil Allergy Severe hives Verified 08/20/24 07:32 HFA) NSAIDS (Non-Steroidal AdvReac Unknown hx of Verified 08/20/24 07:32 Anti-Inflamma ulcers PMFSH Past Medical History Medical History Endometriosis Gastric ulcer Wears glasses Iron deficiency anemia Profound anemia Bipolar disorder Depression GERD (gastroesophageal reflux disease) Asthma Surgical History Surgical History H/O endoscopy H/O colonoscopy Family History Family History Mother High cholesterol Sibling Adverse reaction to anesthetic agent ADHD (attention deficit hyperactivity disorder) Depression Grandparent Ovarian cancer Social History Social History Social History: The patient is lives with her in [place]. She designates her , Ankit, as her surrogate decision maker and she wishes to be a full code. She is a lifelong nonsmoker and denies alcohol and drug abuse. 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 Gender identity (if verbalized by the patient): Female Spiritual care concerns: No Agree to blood products: Yes Exam 2 Narrative: General appearance: Well-developed, well-nourished Skin: Normal color Head: Normocephalic, nontraumatic Eyes: Clear conjunctiva ENT: Oropharynx normal, ears normal, nose normal Neck: Supple, nontender Chest and respiratory: Airway patent, no respiratory distress, no accessory muscle use Heart: Regular rate/rhythm Abdomen: Soft, nontender, no organomegaly, quiet bowel sounds Vascular: Normal peripheral pulses, normal capillary refill. 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, no gross motor deficit Course Vital Signs Vital signs: Vital Signs Temperature 36.7 C 09/09/24 12:21 Pulse Rate 91 09/09/24 12:21 Respiratory Rate 18 09/09/24 12:21 Blood Pressure 126/75 09/09/24 12:21 Pulse Oximetry 100 09/09/24 12:21 Oxygen Delivery Room Air 09/09/24 12:21 Temperature 36.7 C 09/09/24 12:21 Pulse Rate 91 09/09/24 12:21 Respiratory Rate 18 09/09/24 12:21 Blood Pressure 126/75 09/09/24 12:21 Pulse Oximetry 100 09/09/24 12:21 Oxygen Delivery Room Air 09/09/24 12:21 Medical Decision Making [facility] Narrative Medical decision making narrative: Differential diagnosis anxiety, depression Blood workup today showed no acute abnormalities Chest x-ray showed no acute abnormality EKG on arrival showed no acute abnormality. Patient received 1 mg of Ativan IV prior to discharge. Differential Diagnosis Differential Diagnosis: As above Vital Signs Vital Signs: Vital Signs Temperature 36.7 C 09/09/24 12:21 Pulse Rate 91 09/09/24 12:21 Respiratory Rate 18 09/09/24 12:21 Blood Pressure 126/75 09/09/24 12:21 Pulse Oximetry 100 09/09/24 12:21 Oxygen Delivery Room Air 09/09/24 12:21 Temperature 36.7 C 09/09/24 12:21 Pulse Rate 91 09/09/24 12:21 Respiratory Rate 18 09/09/24 12:21 Blood Pressure 126/75 09/09/24 12:21 Pulse Oximetry 100 09/09/24 12:21 Oxygen Delivery Room Air 09/09/24 12:21 Lab Data 09/09/24 12:33 09/09/24 12:33 Labs: Lab Results 09/09/24 Range/Units 12:33 WBC 12.1 H (4.5-10.0) K/mm3 RBC 4.51 (4.2-5.4) M/mm3 Hgb 7.9 L (12.0-15.0) g/dL Hct 29.1 L (37.0-47.0) % MCV 64.5 L (80-100) fl MCH 17.5 L (26-34) pg MCHC 27.1 L (32-36) g/dl RDW 20.1 H (11.5-14.5) % Plt Count 596 H (150-375) k/mm3 MPV 8.9 (7.4-10.4) fl Immature Gran % (Auto) 0.5 (0-0.5) % Neut % (Auto) 79.0 H (45.5-73.1) % Lymph % (Auto) 13.8 L (18.3-44.2) % [place] % (Auto) 5.8 (2.6-8.5) % Eos % (Auto) 0.5 (0-4.4) % Baso % (Auto) 0.4 (0.2-1.2) % Lymph # (Auto) 1.67 (0.9-3.2) K/mm3 [place] # (Auto) 0.7 H (0.1-0.6) K/mm3 Eos # (Auto) 0.1 (0-0.3) K/mm3 Baso # (Auto) 0.1 (0.0-0.1) K/mm3 Abs Immat Gran (auto) 0.06 H (0.00-0.031) K/mm3 Absolute Neuts (auto) 9.6 H (1.3-6.7) K/mm3 Absolute Nucleated RBC 0.000 (0.0-0.012) K/mm3 Band Neutrophils % Not Reportable Nucleated RBC % 0.0 (0.0-0.2) % Platelet Estimate Slightly increased (Adequate) Hypochromasia 1+ Anisocytosis 1+ Schistocytes None seen PT 12.8 (11.1-14.7) Seconds INR 0.9 APTT 24.8 (22.3-36.8) Seconds Sodium 137 (137-145) mmol/L Potassium 4.5 (3.4-5.0) mmol/L Chloride 100 (98-107) mmol/L Carbon Dioxide 27 (22-30) mmol/L Anion Gap 10 (4-12) mmol/L BUN 17 (7-17) mg/dL Creatinine 0.58 L (0.7-1.0) mg/dL Estim Creat Clear Calc 111 ml/min Estimated GFR > 60 (59 - ) Glucose 91 (65-110) mg/dL Calcium 8.9 (8.4-10.2) mg/dL Total Bilirubin 0.5 (0.2-1.3) mg/dL AST 28 (14-36) U/L ALT 17 (6-35) U/L Alkaline Phosphatase 83 (38-126) U/L Troponin I < 0.012 (0.000-0.034) ng/mL Total Protein 8.0 (6.3-8.2) g/dL Albumin 4.2 (3.5-5.1) g/dL Lipase 123 (23-300) U/L Imaging Data Radiologist's impression: Impressions Chest X-Ray 09/09/24 12:54 IMPRESSION: No focal infiltrate or effusion. ECG Data EKG #1: Attestation: I personally reviewed and interpreted this ECG as follows: ECG completion date: 09/09/24 Interpretation: Normal sinus rhythm at 88 beats per minute, left axis deviation, nonspecific ST T-wave abnormality, no previous EKG available for comparison Critical Care Time Critical Care Time Critical Care Time: No Discharge Plan Discharge Clinical Impression: Anxiety-like symptoms Patient Disposition: Home Condition: Stable Instructions: Stress (ED) Additional Instructions: Return if symptoms are worsening , call your family physician for appointment, take Tylenol as as needed for aches and pain, continue home medications. Patient Language: Bengali Prescriptions: No Action aspirin 81 mg capsule 81 mg PO DAILY albuterol sulfate [ProAir HFA] 90 mcg/actuation HFA aerosol inhaler 1 inh inhalation Q4H PRN (Reason: shortness of breath or wheezing) Qty: 8.5 0RF buspirone 10 mg tablet 10 mg PO TID Qty: 270 1RF pantoprazole [Protonix] 40 mg tablet,delayed release (DR/EC) 40 mg PO BID Qty: 180 1RF montelukast 10 mg tablet See Rx Instructions .ROUTE .COMPLEX Qty: 90 1RF Dose Instruction: TAKE 1 TABLET BY MOUTH EVERY DAY Rx Instructions: TAKE 1 TABLET BY MOUTH EVERY DAY ondansetron 8 mg tablet,disintegrating 8 mg PO Q12H Qty: 14 0RF fluoxetine 60 mg tablet 60 mg PO DAILY Qty: 90 1RF Follow-up/Referrals: Deb Tanner MD [Primary Care Provider] -
[2024-09-09] MEDS: LORazepam INJ (*CRX) 2 MG/ML VIAL 1 MG IV PUSH (13:47)
== END 2024-09-09 14:20 | disposition home or self-care (01) ==
PROVIDERS: Emergency Medicine; Emergency Provider Emergency Medicine; PCP Family Medicine
DX: F41.9 Anxiety disorder, unspecified (principal); D64.9 Anemia, unspecified; F32.A Depression, unspecified; K21.9 Gastro-esophageal reflux disease without esophagitis; J45.909 Unspecified asthma, uncomplicated; Z79.82 Long term (current) use of aspirin
CPT/HCPCS: 36415; 71046; 80053; 83690; 84484; 85025; 85610; 85730; 93005; 96374; 99284; J2060

== ENCOUNTER 2024-11-02 16:56 | Emergency (ER) | payer BC, SELFPAY ==
--- NOTE | ~2024-11-02 | XR_ITS ---
XR ankle RT min 3V Ordering provider: Doreen Sidhu History: . injury, hurt stepping off of curb 3 days ago, posterior pain . Comparison: December 04, 2021 FINDINGS: BONES: No definite acute fracture or dislocation. Bony protrusion is seen in the distal fibula which is most likely callus formation from previous frac ture acute fracture is less likely. Clinical evaluation for tenderness and if warranted CT is advised . JOINT SPACES: Normal. SOFT TISSUES: Minimal soft tissue swelling seen medially and laterally. Calcaneus spur. IMPRESSION: No definite acute osseous abnormality of the right ankle. Bony protrusion the area of the fibula. Clinical and if warranted CT evaluation is advised. Reviewed, dictated and finalized at location A.
[2024-11-02 16:59] VITALS: BP 145/88; PULSE 89; RESP 16; TEMP 36.6; O2SAT 98
--- OUTSIDE RECORDS SUMMARY | 2024-11-02 16:59 | XMS_ITS | Encounter Summary ---
Author Organization [facility] Address [address] [place] [address] Care Team Providers Care Mule Packer Name Role Phone Deb Tanner MD Primary Care Provider [phone] Encounter Details Date Type Department Care Team (Late st Contact Info) Description 10/31/2024 External Device Data STL ABSTRACTION Provider, Abstract NO ADDRESS ON FILE Social History Tobacco Use Types Packs/Day Years Used Date Smoking Tobacco: Never Smokeless Tobacco: Never Alcohol Use Standard Drinks/Week Comments Yes 0 (1 standard drink = 0.6 oz pur e alcohol) occasional Comments Unknown Sex and Gender Information Value Date Recorded Sex Assigned at Not on file 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 Gender Identity Not on file Sexual Orientation Not on file documented as of this encounter Plan of Treatment Upcoming Encounters Date Type Department Care Team (Late st Contact Info) Description 01/15/2025 3:30 PM CDT Office Visit [facility] Oncology and Hematology - [place] [address] [place] [address] [address] Manpreet Davis MD [address] [facility] [address] [place] [address] documented as of this encounter Visit Diagnoses Not on filedocumented in this encounter Care Teams Mule Packer Relationship Specialty Start Date End Date Deb Tanner MD [address] [place] [address] PCP - General Family Practice 3/10/22 documented as of this encounter
--- OUTSIDE RECORDS SUMMARY | 2024-11-02 16:59 | XMS_ITS | Data Portability ---
Author Organization [facility], [place] Address [address] [place] [address] [place] [address] Care Team Providers Care Military Cook Name Role Phone SETH CARDOZO Primary Care Provider [phone] Assessment Encounter Date Assessment Date Assessment LastModified by Organization Details LastModified Time 06/08/2021 06/08/2021 suspect perimenopausal, but discussed need to r/o hyperplasia or malignancy of endometrium will schedule US will do EMB with FU visit will start ALTO CINCO jillian for libido discussed either antidepressants or HRT for symptomatic treatment of menopause. May not have estrogen until EMB benign, and does not have hotflashes yet. encouraged to contact PCP or maybe get psych consult re irritability since already on high dose prozac. WWE scheduled next month [email or web address] Not available 06/08/2021 15:40:29 06/19/2021 06/19/2021 Discussed [...] None recorded. Imaging US, pelvis 2021 022 [facility], [address], [address], [place], [address], 15:38:58 US, [facility]vagina l 2021 022 [facility], [address], [place], [address], 16:00:11 Medication Orders None recorded. Patient TargetsNo targets recorded. Patient InstructionsNo instructions recorded. Reason for Referral None Reported. Results Created Date Observation Date Name Description Value Unit Range Abnormal Flag Note LastModifiedBy Organization Detail LastModifiedTime 06/20/19 22 06/19/2021 SURGI PRISCILLA PATHO LOGY surgical pathology SEE RESULT S BELOW CASE REPOR T: Surgi priscilla Patho logy Repor t Case: [id number] Autho maya vazquez Provi chuck: Briseida Parker MD Colle cted: [...] william hurd ident ified . Elect lemuel alonzo d by Isabelle Mercado MD on 022 at [...] ed with the patie nt's name, demog raphjose eduardo cs and EMB. Recei [place] in forma faustino is a 1.0 x 0.3 x 0.[address] [facility] [place] e diaz tissu e and mucoi d mater ial. The entir e speci men is submi tted in one casse tte. Gross ed by Selvin Pittman Not Available [facility] (Lab) [address], [place], [address], 06/22/2021 16:26:25 06/17/19 22 06/16/2021 US, pelvi s No observ ation record ed. [address], [place], [address], 06/16/2021 15:59:55 06/17/19 22 06/16/2021 US, trans vagin al No observ ation [facility] ed. [email or web address] [place] [address] [address], [place], [address], 06/16/2021 16:00:11 06/17/19 22 06/16/2021 US, pelvi s No observ ation record ed. lee ann [address], [facility], [place], [address], 06/23/2021 11:37:40 Result Notes None recorded. Problems Name Problem SNOMED Code Status Onset Date Resolution Date Notes Provider Name and Address Organization Details Recorded Time Finding of regulari ty of menstrua l cycle Completed 201706/08/2021 Irregula r bleeding ;Recorde d Elsewher e: No [facility] our[facility]: EHR Medication Assistant juan: N Practi ce ID: 0001 Adrian lable Time: 11:15:00 AM Briseida Lenz MD [address], [place], [address], [facility] 15:06:32 Pregnanc y test negative [id number] Completed 201706/08/2021 Encounte r for pregnanc y test, result negative ;Recorde d Elsewher e: No Locat ion: [facility] S ource: EHR Medication Assistant juan: N Practi ce ID: 0001 Adrian lable Time: 11:15:00 AM Briseida Lenz MD [address], [place], [address], [facility] [address] 15:06:[address] Concept Completed 201706/08/2021 Encntr for saw man exam (general ) (routine ) w/o abn findings ;Recorde d Elsewher e: No Locat ion: [facility] S ource: EHR Medication Assistant juan: N Practi ce ID: 0001 Adrian lable Time: 11:15:00 AM Briseida Lenz MD [address], [place], [address], [facility] 2 15:06:36 Body mass index 40+ - severely obese 520880292 Active 2021 Briseida Lenz MD [address], [place], [address], [facility] 2 15:40:19 Problem Notes None recorded. Procedures Surgical History Date Name Laterality Status Provider Name and Address Organization Details Recorded Time 06/20/19 22 Endometrial Biopsy completed Briseida Lenz MD [address], [place], [address], [facility] 06/22/2021 19:59:18 07/14/19 18 Date of Last Pap Smear completed Tashia Mckeon [facility] 06/08/2021 15:07:08 Imaging Results None recorded. Procedure Notes None recorded. Medical Equipment None Reported. Allergies Allergen ID Allergen Name Allergen Category Reaction Reaction Severity Criticality Documentation Date Start Date Code Code System Note Provider Name and Address Organization Details Recorded Time 42856 albuterol medicatio n Not available Not available Not available 06/08/2021 435 RxNorm Tashia chanel [facility] 2 15:06:07 Medications Name Sig [...] Prescrib ed Elsewher e: Yes Loca tion: [facility] odify By: tracey Encounte r DateTime : [...] Yes Loca tion: [facility] M odify By: tracey Davis r DateTime : [...] Updated DateTime 06/08/2021 160.02 cm 42.3 kg/m2 799185.58 g 132/84 mm[Hg] [facility] 06/08/2021 15:03:03 Date Recorded Body height Body mass index (BMI) Body weight Systolic And Diastolic Provider Name and Address Organization Details Last Updated DateTime 06/19/2021 160.02 cm 41.8 kg/m2 541787.8 g 130/84 mm[Hg] [facility] 06/19/2021 14:06:28 Social History Question Answer Notes LastModified by Organizat ion Details LastModified Time Tobacco Smoking Status Never Smoker Tashia Victorkary [facility] 06/08/2021 14:41:15 Have You Been To [...] SNOMED-CT Code Diagnosis ICD10 Code Diagnosis Note [id number] Briseida Lenz MD [place] [address],[place] [address] 06/08/2021 14:24:15 06/08/2021 15:47:12 Menometrorrhagia 268468961 N92.1 Mood disorder 18437594 F 39 Reduced libido 1549128 R 68.82 Body mass index 40+ - severely obese 403998005 Z68.41 [id number] Briseida Lenz MD [place] [address],[place] [address] 06/16/2021 14:33:50 06/16/2021 15:27:22 Menometrorrhagia 288692912 N92.1 [id number] Briseida Lenz MD [place] [address],[place] [address] 06/19/2021 13:30:04 06/23/2021 16:29:58 Menometrorrhagia 485719978 N92.1 Cyst of left ovary 04946 22875 5970768 N83.202 Health Concerns Section Related Observation LastModified by Organization Detai ls LastModified Time None Recorded Concern Status LastModified by Organization Details LastModified Time None Recorded Advance Directives Directive None Recorded Payers Insurance Date Sequence Insurance Name Policy Number Policy Roman Covered Member ID Roman Member ID Guarantor Name 07/07/2021 1 [place] [id number] B Evelina Acevedo [id number] Evelina Acevedo Notes Date Note Type [...] violence:denies Briseida Lenz MD [address], [place], [address], [facility] 06/08/2021 15:40:45 06/19/2021 text/html 50yo here for follow up menometrorrhagia. US this week showed heterogeneous uterus, otherwise normal, and left ovary with a 4cm simple cyst. Also nabothian cysts. needs EMB. Briseida Lenz MD [address], [place], [address], [facility] 06/22/2021 20:00:51 OBGyn Episode No OBEpisode recorded.
--- OUTSIDE RECORDS SUMMARY | 2024-11-02 16:59 | XMS_ITS | Data Portability ---
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 Lab None recorded. Referral physical therapist referral - Please schedule pt for R knee pain. Thanks 2024 025 [facility] [place] [facility], [address], [place], [address], 12:32:56 Procedures injection/ aspiration joint/burs a (PROC) 2024 025 [email or web address] 1 In-Office Order, Internal Use Only DO Not Attach Compendium DO Not Attach Compendium, Do Not Delete/merge, [address] 5 11:56:02 Surgeries None recorded. Imaging XR, knee, 3 view 2024 025 [email or web address] 1 [facility], [address], [place], [address], 5 12:10:32 Medication Orders bupivacain e HCl 0.5 % (5 mg/mL) injection solution [address] [place] [address]/Pharmacy [facility]25[facility], [address] [place], [address], 5 12:06:07 Kenalog 10 mg/mL suspension for injection [address] [place] [address]/Pharmacy #2510, [address] [place], [address], 5 12:06:07 prednisone 10 mg tablets in a dose pack [address] [place] [address]/Pharmacy [facility]2510, [address] [place], [address], 5 12:06:07 Patient TargetsNo targets recorded. Patient InstructionsNo [...] more view No observ ation record ed. [id number] [facility] [address], [place], [address], 06/16/2022 23:42:35 08/15/19 25 08/06/2024 XR, knee, 4 or more view No observ ation record ed. [email or web address] Not Available 2024 10:25:55 08/18/19 XR, knee, 3 view No observ ation record ed. [email or web address] [facility] [place] [address], [place], [address], 08/17/2024 12:04:08 Result Notes None recorded. 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 Procedures Surgical History Date Name Laterality Status Provider Name and Address Organization Details Recorded Time Colonoscopy completed Marli Bella CNA [employer] 08/17/2024 11:33:46 Imaging Results None recorded. Procedure Notes None recorded. Medical Equipment None Reported. Allergies Allergen ID Allergen Name Allergen Category Reaction Reaction Severity Criticality Documentation Date Start Date Code Code System Note Provider Name and Address Organization Details Recorded Time 18772 albuterol sulfate medicatio n hives Not available Not available 06/16/2022 08237 3 RxNorm Not Available [facility] 23:42:19 Medications Name Sig Start Date Stop Date Status Note LastModified by Organization Details LastModified Time prednisone 10 mg tablet TAKE 1 TAB 3 TIMES DAILY X3 DAYS, 1 TAB TWICE DAILY X2 DAYS, THEN 1 TAB DAILY X1 DAY active Not Available Not Available No t Available BD Insulin Syringe 1 mL 25 x [...] 2 mL by injection route. 2024 active [facility]: 0003- 0494- 20 Not Available Not Available Not Available pantoprazol e 40 mg tablet,tanna yed release TAKE 1 TABLET BY MOUTH TWICE A DAY active Not Available Not Available No t Available cyanocobala min (vit B-12) 1,000 mcg/mL injection solution INJECT 1 ML (1,000 MCG) INTO THE MUSCLE EVERY 30 DAYS. active Not Available Not Available No t Available montelukast 10 mg tablet TAKE 1 TABLET BY MOUTH EVERY DAY active Not Available Not Available No t Available BD SafetyGlide Tuberculin Regular Bevel 1 mL 27 x 1/2 syringe USE WITH B-12 INJECTION S. active Not Available Not Available No t Available Prozac 2020 active Not Available Not Available Not Avai lable buspirone active Not Available Not Ashley ilable Not Available fluoxetine 60 mg tablet TAKE 1 TABLET BY MOUTH EVERY DAY active Not Available Not Available No t Available Sutab 1.479-0.188 -0.225 gram tablet TAKE [...] Updated DateTime 08/17/2024 160.02 cm 36.3 kg/m2 63260.44 g ARGELIA Posey [place] [facility] 08/17/2024 11:30:23 Date Recorded Body mass index (BMI) Body height Body weight Provider Name and Address Organization Details Last Updated DateTime 12/09/2020 36.1 kg/m2 160.02 cm 67692.84 g Not Available [facility] 06/16/2022 23:37:36 Date Recorded Body height Provider Name an d Address Organization Details Last Updated DateTime 12/23/2020 160.02 cm Not Available [facility] 23:37:36 Date Recorded Body height Provider Name an d Address Organization Details Last Updated DateTime 01/29/2021 160.02 cm Not Available [facility] 23:37:36 Social History None recorded. Functional Status Question Answer Note LastModified by Organizat ion Details LastModified Time What is your level of alcohol consumption? None [id number] Information not available 06/16/2022 Mental Status None recorded. Family History Relationship Description Onset Age of this Age Resolved Age Notes LastModified by Organization Details LastModified Time Maternal Grandmother Family history of stroke [email or web address] Not available 2024 11:33:18 Unspecified Relation Family history of malignant neoplasm grandm other [id number] Not available 06/16/2022 23:35:49 Medical History Condition Response ULCERS Y Blood Disorder Y ANEMIA/BLOOD DISORDER Y Gynecological HistoryNo gynecological history recorded. Obstetrics History GPAL:G 0 P 0 0 0 0 Past Encounters Encounter ID Performer Location Encounter Start Date Encounter Closed Date Diagnosis/Indication Diagnosis SNOMED-CT Code Diagnosis ICD10 Code Diagnosis Note [id number] BILL Heredia [facility] [address] [place] [address] 12/09/2020 00:00:00 12/09/2020 14:29:23 [id number] BILL Heredia [facility] [address] [place] [address] 12/23/2020 00:00:00 12/23/2020 15:21:53 [id number] BILL Heredia [facility] [address] [place] [address] 01/29/2021 00:00:00 01/29/2021 09:35:51 [id number] Genaro Mar MD [facility] [place] [address] [facility] [address] [place] [address] 08/17/2024 11:17:17 08/17/2024 12:10:32 Pain of knee region 7945830944 M25.561 Osteoarthr itis of right knee joint 4514879449 36640 M17.11 Health Concerns Section Related Observation LastModified by Organization Detai ls LastModified Time None Recorded Concern Status LastModified by Organization Details LastModified Time None Recorded Advance Directives Directive None Recorded Payers Insurance Date Sequence Insurance Name Policy Number Policy Roman Covered Member ID Roman Member ID Guarantor Name 10/30/2024 1 [place] [id number] B Evelina Acevedo [id number] Evelina Acevedo Notes Date Note Type [...] today with the patient. BILL Heredia [address], [facility] [address], [place], [address], [place] [facility] [place] [facility] [facility] 08/17/2024 12:05:35 OBGyn Episode No OBEpisode recorded.
--- OUTSIDE RECORDS SUMMARY | 2024-11-02 16:59 | XMS_ITS | Clinical Summary ---
Author Organization [facility] Address [address] [facility] [place] [address] Care Team Providers Care Head Screen Worker Name Role Phone Deb Tanner MD Primary Care Provider [phone] Allergies Active Allergy Reactions Criticality Noted Date [...] WITH B-12 INJECTIONS. 3 Each 5 Active cyanocobalamin (VITAMIN B-12) 1,000 mcg/mL SolutionIndicat ions:Anemia due to vitamin B12 deficiency, unspecified B12 deficiency type Inject 1 mL (1,000 mcg) by intramuscular injection every 30 days. 3 mL 5 Active Active Problems Problem Noted Date Diagnosed Date Vitamin B12 deficiency (non anemic) 08/09/2022 Reactive thrombocytosis 06/25/2021 Encounters Date Type Department Care Team Description 10/31/2024 External Device Data ST[facility] ABSTRACTION Provider, Abstract 10/30/2024 External Device Data [facility] ABSTRACTION Provider, Abstract 10/02/2024 External Device Data [facility] ABSTRACTION Provider, Abstract 10/01/[address] [facility] [place] [address] [place] [address] Manperet Davis MD 09/24/2024 2:15 PM CDT Office Visit [facility] [place] [facility] [address] [place] [address] Manpreet Davis MD Iron deficiency anemia, unspecified iron deficiency anemia type (Primary Dx); Anemia due to vitamin B12 deficiency, unspecified B12 deficiency type 09/24/[address] [facility] [place] [facility] [address] [place] [address] Manpreet Davis MD 09/17/[address] 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 Gender Identity Not on file Sexual Orientation Not on file Last Filed Vital Signs Vital Sign Reading Time Taken Comments Blood Pressure 107/64 09/24/2024 1:59 PM CDT Pulse 89 09/24/2024 1:59 PM CDT Temperature 36.8 C (98.3 F) 09/24/2024 1:59 PM CDT Respiratory Rate 16 09/24/2024 1:59 PM CDT Oxygen Saturation 95% 09/30/2023 11: 52 AM CDT Inhaled Oxygen Concentration - - Weight 101.8 kg (224 lb 6.4 oz) 09/24/2024 1:59 PM CDT Height 160 cm (5' 3) 10/27/2021 11:42 AM CDT Body Mass Index 39.75 10/27/2021 11:42 AM CDT Plan of Treatment Upcoming Encounters Date Type Department Care Team (Late st Contact Info) Description 01/15/2025 3:30 PM CDT Office [facility] [place] [address] [facility] [address] [place] [address] Manpreet Davis MD [address] [facility] [address] [place] [address] Health Maintenance Due Date Last [...] (1 of 2) 2022 INFLUENZA VACCINE (#1) 2024 Procedures Procedure Name Priority Date/Time Associated Diagnosis Comments CBC WITH DIFFERENTIAL Routine 09/21/2024 1:45 PM CDT IRON, TIBC, AND PERCENT SATURATION Routine 09/21/2024 11:19 AM CDT from Last 3 Months Results * CBC WITH DIFFERENTIAL (09/21/2024 1:45 PM CDT) Blood us Manpreet Davis MD HEMATOLOGY ORDERABLES Final Res ult * IRON, TIBC, AND PERCENT SATURATION (09/21/2024 11:19 AM CDT) Blood Manpreet Ochoa Davis MD CHEMISTRY ORDERABLES Final Resu lt from Last 3 Months Insurance BCBS BLUE ACCESS/TRUE BLUE PPO Useful at NightBS BLUE ACCESS/TRUE BLUE PPO Care Teams Head Screen Worker Relationship Specialty Start Date End Date Deb Tanner MD [address] [place] [address] PCP - General Family Practice 06/25/21
--- OUTSIDE RECORDS SUMMARY | 2024-11-02 16:59 | XMS_ITS | Clinical Summary ---
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
--- NOTE | 2024-11-02 18:32 | ED_ITS ---
HPI - Extremity Injury (Lower) General Chief Complaint: Extremity Injury, Lower Stated Complaint: R ankle injury Time Seen by Provider: 11/02/24 18:22 Source: patient Mode of arrival: ambulatory Limitations: no limitations History of Present Illness HPI Narrative: Patient is a 54 y/o female who presents to the ED with c/o right ankle pain. Patient reports she tripped off of a curb 3 days ago and rolled her right ankle. Complains of pain through her right lateral and posterior ankle. Reports swelling. Denies numbness. Is able to ambulate, but has pain with this. Took Tylenol last night. Has not taken anything for pain today. Denies any other injuries with the fall. Related Data Home Medications ?Medication ?Instructions ?Recorded ?Confirmed ?Last Taken ?Type aspirin 81 mg capsule 81 mg PO DAILY 06/19/24 10/16/24 06/27/24 History Allergies Allergy/AdvReac Type Severity Reaction Status Date / Time albuterol (From Proventil Allergy Severe hives Verified 10/23/24 10:01 HFA) NSAIDS (Non-Steroidal AdvReac Unknown hx of Verified 10/23/24 10:01 Anti-Inflamma ulcers Review of Systems Review of Systems: All systems reviewed & are unremarkable except as noted in HPI. All systems reviewed & are unremarkable except as noted in HPI and below PMFSH Past Medical History Medical History Endometriosis Gastric ulcer Wears glasses Iron deficiency anemia Profound anemia Bipolar disorder Depression GERD (gastroesophageal reflux disease) Asthma Surgical History Surgical History H/O endoscopy H/O colonoscopy Family History Family History Mother High cholesterol Sibling Adverse reaction to anesthetic agent ADHD (attention deficit hyperactivity disorder) Depression Grandparent Ovarian cancer Social History Social History Social History: The patient is lives with her in [place]. She designates her , Ankit, as her surrogate decision maker and she wishes to be a full code. She is a lifelong nonsmoker and denies alcohol and drug abuse. 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 HEAD: Normocephalic, atraumatic. RESPIRATORY: Airway patent, respirations nonlabored. CARDIOVASCULAR: Regular rate and rhythm. Pedal pulses intact and easily palpable. MUSCULOSKELETAL: Moves all extremities. Slight decreased range of motion of right ankle due to pain. Swelling throughout right lateral malleoli with focal tenderness. Mild tenderness to palpation throughout right posterior lateral malleoli. No significant tenderness over medial malleoli. SKIN: Warm, dry, normal color. NEURO: A&O X3. Speech clear. Steady gait. No ataxic movements. PSYCHIATRIC: Appropriate mood and affect. Normal interaction. Course Vital Signs Vital signs: Vital Signs Temperature 97.9 F 11/02/24 16:59 Pulse Rate 89 11/02/24 16:59 Respiratory Rate 16 11/02/24 16:59 Blood Pressure 145/88 H 11/02/24 16:59 Pulse Oximetry 98 11/02/24 16:59 Temperature 97.9 F 11/02/24 16:59 Pulse Rate 89 11/02/24 16:59 Respiratory Rate 16 11/02/24 16:59 Blood Pressure 145/88 H 11/02/24 16:59 Pulse Oximetry 98 11/02/24 16:59 MDM - Extremity Injury (Lower) MDM Narrative Medical decision making narrative: Patient?s injury is consistent with musculoskeletal etiology. No signs of neurologic or vascular compromise on physical examination. Compartments are soft without signs of compartment syndrome. XR of right ankle without acute fracture. Does show bony protrusion on medial malleolus, likely callous formation. Does not appear consistent with acute fracture. She does not have any focal reproducible tenderness in this region. Pain is consistent with ankle sprain. Patient is felt to be stable for discharge home and further outpatient management and treatment. Given Gaurav bandage in the ED. She does have a previous internet database specialist that she can follow-up with. Discussed continued rice therapy. Given return precautions. Discharged in stable condition. Medical Records Attestation: I reviewed the patient's medical records. Imaging Data Attestation: I personally reviewed and interpreted this imaging study as follows: Radiologist's impression: ITS Impressions Ankle X-Ray 11/02/24 17:15 IMPRESSION: No definite acute osseous abnormality of the right ankle. Bony protrusion the area of the fibula. Clinical and if warranted CT evaluation is advised. Discharge Plan Discharge Clinical Impression: Strain of right ankle Qualifiers: Encounter type: initial encounter Qualified Code(s): S96.911A - Strain of unspecified muscle and tendon at ankle and foot level, right foot, initial encounter Patient Disposition: Home Condition: Stable Instructions: Antibiotic Form, Ankle Sprain (ED), P.R.I.C.E. Treatment (ED) Additional Instructions: Recommend Tylenol, ibuprofen as needed for pain, Gaurav bandage for compression and support. Recommend frequent icing to ankle. Recommend elevating leg whenever possible. Follow-up with orthopedics for further evaluation if needed. Return to the ED if you experience worsening or severe pain, severe swelling, numbness, recurrent fall or injury, or any other symptoms of concern. Patient Language: Yoruba Prescriptions: No Action aspirin 81 mg capsule 81 mg PO DAILY albuterol sulfate [ProAir HFA] 90 mcg/actuation HFA aerosol inhaler 1 inh inhalation Q4H PRN (Reason: shortness of breath or wheezing) Qty: 8.5 0RF Patient Comments: .. montelukast 10 mg tablet See Rx Instructions .ROUTE .COMPLEX Qty: 90 1RF Dose Instruction: TAKE 1 TABLET BY MOUTH EVERY DAY Rx Instructions: TAKE 1 TABLET BY MOUTH EVERY DAY ondansetron 8 mg tablet,disintegrating 8 mg PO Q12H Qty: 14 0RF fluoxetine 60 mg tablet 60 mg PO DAILY Qty: 90 1RF pantoprazole [Protonix] 40 mg tablet,delayed release (DR/EC) 40 mg PO BID Qty: 180 1RF buspirone 10 mg tablet 10 mg PO TID Qty: 270 1RF Follow-up/Referrals: Deb Tanner MD [Primary Care Provider] - Time of Disposition: 18:34
[2024-11-02] MEDS: ACETAMINOPHEN 500 MG TABLET 1000 MG PO (18:34)
[2024-11-02 18:40] VITALS: BP 140/80; PULSE 85; RESP 14; O2SAT 98
--- OUTSIDE RECORDS SUMMARY | 2024-11-02 18:45 | XMS_ITS | Clinical Summary ---
Author Organization [facility] abi [facility] Address [address] [facility] [place] [address] Care Team Providers Care Automatic Fancy Machine Operator Name Role Phone Deb Tanner MD Primary Care Provider [phone] Allergies Active Allergy Reactions Criticality Noted Date [...] STL ABSTRACTION Provider, Abstract 10/01/2024 Orders Only [facility] - [place] [address] [place] [address] Manpreet Davis MD 09/24/2024 2:15 PM CDT Office Visit [facility] - [place] [facility] [address] [place] [address] Manpreet Davis MD Iron deficiency anemia, unspecified iron deficiency anemia type (Primary Dx); Anemia due to vitamin B12 deficiency, unspecified B12 deficiency type 09/24/2024 Orders Only [facility] - [place] [facility] [address] [place] [address] Manpreet Davis MD 09/17/2024 Refill [facility] - [place] [address] [place] [address] Manpreet Davis MD Anemia due to vitamin [...] on file 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 Gender Identity Not on file Sexual Orientation [...] Description 01/15/2025 3:30 PM CDT Office Visit [facility] - [place] [address] [facility] [address] [place] [address] Manpreet Davis MD [address] [facility] [address] [place] [address] Health Maintenance Due Date Last [...] Months Insurance BCBS BLUE ACCESS/TRUE BLUE PPO [employer] BL[employer]ESS/TRUE BLUE PPO Care Teams Automatic Fancy Machine Operator Relationship Specialty Start Date End Date Deb Tanner MD [address] [place] [address] PCP - General Family Practice 06/25/21
--- OUTSIDE RECORDS SUMMARY | 2024-11-02 18:45 | XMS_ITS | Clinical Summary ---
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
--- OUTSIDE RECORDS SUMMARY | 2024-11-02 18:45 | XMS_ITS | Encounter Summary ---
Author Organization [facility] Address 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 Gender Identity Not on file Sexual Orientation Not on file documented as of this encounter Plan of Treatment Upcoming Encounters Date Type Department Care Team (Late st Contact Info) Description 01/15/2025 3:30 PM CDT Office Visit [facility] - [place] [address] [place] [address] [address] Manpreet Davis MD [address] [facility] [address] [place] [address] documented as of this encounter Visit Diagnoses Not on filedocumented in this encounter Care Teams Sugar Cane Planter Relationship Specialty Start Date End Date Deb Tanner MD [address] [place] [address] PCP - General Family Practice 3/10/22 documented as of this encounter
== END 2024-11-02 18:40 | disposition home or self-care (01) ==
LOC: ANHED 18:43
PROVIDERS: Emergency Provider Physician Assistant; PCP Family Medicine
DX: S96.911A Strain of unspecified muscle and tendon at ankle and foot level, right foot, initial encounter (principal); N80.9 Endometriosis, unspecified; J45.909 Unspecified asthma, uncomplicated; D50.9 Iron deficiency anemia, unspecified; K21.9 Gastro-esophageal reflux disease without esophagitis; F31.9 Bipolar disorder, unspecified; Z79.1 Long term (current) use of non-steroidal anti-inflammatories (NSAID); Z79.899 Other long term (current) drug therapy; Z79.82 Long term (current) use of aspirin; W10.1XXA Fall (on)(from) sidewalk curb, initial encounter
CPT/HCPCS: 73610; 99283; A9270

== ENCOUNTER 2025-01-15 00:09 | Emergency (ER) | payer BC, SELFPAY ==
--- NOTE | ~2025-01-15 | CT_ITS ---
CT abdomen pelvis w con Clinical History: diarrhea, abd pain . Comparison: None Technique: Axial images lung bases to symphysis pubis 100 mL IV contrast Coronal, sagittal reformats CT images acquired with automatic exposure control for dose reduction DLP: 1200 mGy-cm Findings: Lung bases: Clear. Visualized heart and pericardium: Unremarkable. Liver: Unremarkable. Gallbladder: Unremarkable. Spleen: Unremarkable. Pancreas: Unremarkable. Adrenal glands: Unremarkable. Kidneys: Right kidney- No hydronephrosis. No renal stones. Left kidney- No hydronephrosis. No renal stones. Distal esophagus/stomach: Large hiatal hernia. Small bowel loops: Normal caliber and wall thickness. Colon: Normal caliber and wall thickness. Normal RLQ appendix. Liquid contents, air-fluid levels Nodes: No enlarged nodes. Peritoneum: No ascites. No free air. Urinary bladder: Unremarkable. Uterus: Small exophytic fibroid. Adnexa: No masses. Left-sided cystic focus. Bones: No acute bony abnormality. Soft tissues: Unremarkable. Aorta: No aneurysm or dissection. IVC: Unremarkable. Main portal vein/SMV/splenic vein: Patent. IMPRESSION: 1. No acute inflammatory process identified. 2. Diarrheal state. Reviewed, dictated and finalized at location R.
[2025-01-15 00:19] VITALS: BP 158/95; PULSE 81; RESP 18; TEMP 36.5; O2SAT 100
--- NOTE | 2025-01-15 00:41 | ED.NAVMDI ---
HPI - Nausea/Vomiting/Diarrhea General Chief complaint: Nausea/Vomiting/Diarrhea Stated complaint: diarrhea Time Seen by Provider: 01/15/25 00:12 History of Present Illness HPI Narrative: 54-year-old female with history of hiatal hernia, gastric ulcers, GERD, iron deficiency anemia. She presents to the emergency department today with stomach pain as well as diarrhea for last week. She endorses voluminous liquid diarrhea, nauseousness. Denies any bleeding, mucus production or discoloration in her stool other than diarrhea. Was otherwise in her normal state of health. No recent iron infusions. Denies any fever but states she had some chills last night. No abnormal dietary changes and she has not tried anything at home for symptom control. Related Data Home Medications ?Medication ?Instructions ?Recorded ?Confirmed ?Last Taken ?Type aspirin 81 mg capsule 81 mg PO DAILY 06/19/24 10/16/24 06/27/24 History Allergies Allergy/AdvReac Type Severity Reaction Status Date / Time albuterol (From Proventil Allergy Severe hives Verified 10/23/24 10:01 HFA) NSAIDS (Non-Steroidal AdvReac Unknown hx of Verified 10/23/24 10:01 Anti-Inflamma ulcers Review of Systems Review of Systems: As reviewed above in HPI [facility] Past Medical History Medical History Endometriosis Gastric ulcer Wears glasses Iron deficiency anemia Profound anemia Bipolar disorder Depression GERD (gastroesophageal reflux disease) Asthma Surgical History Surgical History H/O endoscopy H/O colonoscopy Family History Family History Mother High cholesterol Sibling Adverse reaction to anesthetic agent ADHD (attention deficit hyperactivity disorder) Depression Grandparent Ovarian cancer Social History Social History Social History: The patient is lives with her in [place]. She designates her , Ankit, as her surrogate decision maker and she wishes to be a full code. She is a lifelong nonsmoker and denies alcohol and drug abuse. 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 HEAD: [Normocephalic, atraumatic.] EYES: [PERRLA and EOMI.] ENT: Nares clear, no rhinorrhea or epistaxis. Mucous membranes moist. NECK: Supple. CHEST: [Clear to auscultation. No respiratory distress.] HEART: [Regular rate and rhythm]. No murmur heard. [Normal peripheral pulses.] ABDOMEN: [Soft, nondistended], [nontender], [No rigidity or guarding] EXTREMITIES: Normal range of motion. [No edema.] SKIN: Warm, dry, no rash. NEURO: [No focal deficits]. Alert and oriented [x3.] PSYCH: [Normal mood and affect.] Course Vital Signs Vital signs: Vital Signs Temperature 36.5 C 01/15/25 00:19 Pulse Rate 81 01/15/25 00:19 Respiratory Rate 18 01/15/25 00:19 Blood Pressure 158/95 H 01/15/25 00:19 Pulse Oximetry 100 01/15/25 00:19 Temperature 36.5 C 01/15/25 00:19 Pulse Rate 70 01/15/25 02:36 Respiratory Rate 18 01/15/25 02:36 Blood Pressure 137/88 01/15/25 02:36 Pulse Oximetry 97 01/15/25 02:36 MDM - Nausea/Vomiting/Diarrhea MDM Narrative Medical decision making narrative: 54-year-old female with history of hiatal hernia, gastric ulcers, GERD, iron deficiency anemia. She presents to the emergency department today with stomach pain as well as diarrhea for last week. She endorses voluminous liquid diarrhea, nauseousness. Denies any bleeding, mucus production or discoloration in her stool other than diarrhea. Was otherwise in her normal state of health. No recent iron infusions. Denies any fever but states she had some chills last night. No abnormal dietary changes and she has not tried anything at home for symptom control. Patient has reassuring vitals here with any tachycardia, fever, hypoxemia or significant blood pressure elevations. Is nauseous and complaining abdominal pain but has a soft nontender nondistended abdomen. Suspect gastroenteritis, colitis, food poisoning, low suspicion reaction to iron infusions she is not having recently, low suspicion inflammatory bowel or GI bleeding/intra-abdominal infection. Laboratory studies obtained in the CT scan with IV contrast ordered of the abdomen pelvis. She was given Bentyl Pepcid Zofran and fluids. Patient felt much better after medications and treatments. CT scan shows fluid-filled loops of bowel consistent with diarrheal disease, mild her hiatal hernia but no signs of organ anomalies. Normal appendix, no signs of intestinal obstruction or free air. Laboratory studies show some minor hypokalemia which was repleted. Normal LFTs. Anemia resolved after her recent iron infusions which is good. Hemodynamically stable and comfortable upon re-evaluation. Safe for discharge and given Pepcid Bentyl and Zofran as needed and encouraged to follow-up with her PCP and given return precautions. Medical Records Attestation: I reviewed the patient's medical records. Lab Data Attestation: I reviewed the patient's lab results. 01/15/25 00:46 01/15/25 00:46 Labs: Lab Results 01/15/25 01/15/25 01/15/25 Range/Units 00:46 02:00 02:01 WBC 8.1 (4.5-10.0) K/mm3 RBC 5.55 H (4.2-5.4) M/mm3 Hgb 14.1 D (12.0-15.0) g/dL Hct 43.7 (37.0-47.0) % MCV 78.7 L (80-100) fl MCH 25.4 L (26-34) pg MCHC 32.3 (32-36) g/dl RDW 19.8 H (11.5-14.5) % Plt Count 421 H (150-375) k/mm3 MPV 8.7 (7.4-10.4) fl Immature Gran % (Auto) 0.2 (0-0.5) % Neut % (Auto) 54.2 (45.5-73.1) % Lymph % (Auto) 34.8 (18.3-44.2) % Parke % (Auto) 9.3 H (2.6-8.5) % Eos % (Auto) 1.1 (0-4.4) % Baso % (Auto) 0.4 (0.2-1.2) % Lymph # (Auto) 2.83 (0.9-3.2) K/mm3 Parke # (Auto) 0.8 H (0.1-0.6) K/mm3 Eos # (Auto) 0.1 (0-0.3) K/mm3 Baso # (Auto) 0.0 (0.0-0.1) K/mm3 Abs Immat Gran (auto) 0.02 (0.00-0.031) K/mm3 Absolute Neuts (auto) 4.4 (1.3-6.7) K/mm3 Absolute Nucleated RBC 0.000 (0.0-0.012) K/mm3 Nucleated RBC % 0.0 (0.0-0.2) % Sodium 136 L (137-145) mmol/L Potassium 3.3 L (3.4-5.0) mmol/L Chloride 99 (98-107) mmol/L Carbon Dioxide 26 (22-30) mmol/L Anion Gap 11 (4-12) mmol/L BUN 14 (7-17) mg/dL Creatinine 0.74 (0.7-1.0) mg/dL Estim Creat Clear Calc 86 ml/min Estimated GFR > 60 (59 - ) Glucose 130 H (65-110) mg/dL Calcium 9.0 (8.4-10.2) mg/dL Total Bilirubin 0.5 (0.2-1.3) mg/dL AST 19 (14-36) U/L ALT 15 (6-35) U/L Alkaline Phosphatase 87 (38-126) U/L Total Protein 8.1 (6.3-8.2) g/dL Albumin 4.3 (3.5-5.1) g/dL Lipase 63 (23-300) U/L Urine Color Yellow (Yellow) Urine Appearance Clear (Clear) Urine pH 5.5 (5.0-9.0) Ur Specific [place] > 1.045 H (1.001-1.035) Urine Protein Trace (Negative) mg/dL Urine Glucose (UA) Negative (Negative) mg/dL Urine Ketones Negative (Negative) mg/dL Ur Blood (Man) Trace (Negative) Urine Nitrate Negative (Negative) Urine Bilirubin Negative (Negative) Urine Urobilinogen 0.2 (<2.0) mg/dL Add Ur Microanalysis Reviewed Leukocyte Esterase Rfl Negative (Negative) CATHLEEN/UL Urine RBC 6-10 H (0-2) /hpf Urine WBC 0-5 (0-3) /hpf Ur Squamous Epith Cells Occasional (Few) /hpf Urine Bacteria None seen /hpf Urine Casts 0-2 POC Urine HCG, Qual Negative (Negative) Imaging Data Attestation: I personally reviewed and interpreted this imaging study as follows: My impression: Fluid-filled bowel loops consistent with diarrhea, no free air or intestinal obstruction. Normal appendix. Solid organs are unremarkable. Discharge Plan Discharge Clinical Impression: Gastroenteritis, Acute hypokalemia Patient Disposition: Home Condition: Stable Instructions: Antibiotic Form, Gastroenteritis (ED), Acute Diarrhea (ED) Additional Instructions: CT scan shows signs of gastroenteritis but no signs of any abscess, infection or any organ anomalies. No signs of obstruction. Your laboratory studies show a normal hemoglobin so the iron infusions you had recently are working. No signs of systemic disease. We will send you home with some medications for controlling symptoms while your symptoms improve. If you have any worsening symptoms or new concerns return to the ER otherwise follow-up with regular primary care provider. Patient Language: Finnish Prescriptions: New famotidine [Pepcid] 20 mg tablet 20 mg PO BID Qty: 20 0RF dicyclomine 20 mg tablet 20 mg PO TID PRN (Reason: abdominal pain) Qty: 20 0RF ondansetron 4 mg tablet,disintegrating 4 mg PO Q8H PRN (Reason: nausea and vomiting) Qty: 20 0RF No Action aspirin 81 mg capsule 81 mg PO DAILY albuterol sulfate [ProAir HFA] 90 mcg/actuation HFA aerosol inhaler 1 inh inhalation Q4H PRN (Reason: shortness of breath or wheezing) Qty: 8.5 0RF Patient Comments: .. ondansetron 8 mg tablet,disintegrating 8 mg PO Q12H Qty: 14 0RF pantoprazole [Protonix] 40 mg tablet,delayed release (DR/EC) 40 mg PO BID Qty: 180 1RF buspirone 10 mg tablet 10 mg PO TID Qty: 270 1RF montelukast 10 mg tablet See Rx Instructions .ROUTE .COMPLEX Qty: 90 1RF Dose Instruction: TAKE 1 TABLET BY MOUTH EVERY DAY Rx Instructions: TAKE 1 TABLET BY MOUTH EVERY DAY fluoxetine 60 mg tablet 60 mg PO DAILY Qty: 90 1RF Follow-up/Referrals: Deb Tanner MD [Primary Care Provider, Family Practice] Time of Disposition: 02:26
[2025-01-15 00:52] LABS: Hematocrit 43.7 % (37.0-47.0); Hemoglobin 14.1 g/dL (12.0-15.0); Immature Granulocyte Percent A 0.2 % (0-0.5); Lymphocytes Absolute Auto 2.83 K/mm3 (0.9-3.2); Mean Corpuscular HGB Conc 32.3 g/dl (32-36); Mean Corpuscular Hemoglobin 25.4 pg (26-34); Mean Corpuscular Volume 78.7 fl (80-100); Nucleated Red Blood Cells Absolute Auto 0.000 K/mm3 (0.0-0.012); Nucleated Red Blood Cells Perc 0.0 % (0.0-0.2); Platelet Count Result 421 k/mm3 (150-375); Red Blood Count 5.55 M/mm3 (4.2-5.4); White Blood Count 8.1 K/mm3 (4.5-10.0)
[2025-01-15] MEDS: DICYCLOMINE HCL 10 MG CAPSULE 20 MG PO (01:02)
[2025-01-15] MEDS: LACTATED RINGERS 1,000 ML 999 ML IV CONT (01:02)
[2025-01-15 01:03] LABS: Alanine Aminotransferase 15 U/L (6-35); Albumin Level 4.3 g/dL (3.5-5.1); Alkaline Phosphatase 87 U/L (38-126); Anion Gap 11 mmol/L (4-12); Aspartate Amino Transferase 19 U/L (14-36); Bilirubin,Total 0.5 mg/dL (0.2-1.3); Blood Urea Nitrogen 14 mg/dL (7-17); Calcium 9.0 mg/dL (8.4-10.2); Carbon Dioxide 26 mmol/L (22-30); Chloride 99 mmol/L (98-107); Estimated CRCL calculation 86 ml/min; Estimated Glomerular Filt Rate > 60; Glucose 130 mg/dL (65-110); Lipase 63 U/L (23-300); Potassium 3.3 mmol/L (3.4-5.0); Sodium 136 mmol/L (137-145); Total Protein 8.1 g/dL (6.3-8.2)
[2025-01-15] MEDS: ONDANSETRON INJ 4 MG/2 ML VIAL IV PUSH (01:04)
[2025-01-15] MEDS: FAMOTIDINE 20 MG/2 ML VIAL IV PUSH (01:05)
[2025-01-15 02:03] LABS: BEDSIDEPREGUCG Negative (Negative)
[2025-01-15 02:17] LABS: Add Urine Microscopic? YES; Appearance Urine Clear (Clear); Glucose Urine UA Negative (Negative); Leukocyte Esterase Ur Negative LEU/UL (Negative); Need Manual Microscopic Reviewed; Nitrate Urine Negative (Negative); Non Pathogenic Casts 0-2; Specific Grav Ur > 1.045 (1.001-1.035)
[2025-01-15] MEDS: POTASSIUM CHLORIDE 20 MEQ ER TABLET PO (02:30)
[2025-01-15 02:36] VITALS: BP 137/88; PULSE 70; RESP 18; O2SAT 97
== END 2025-01-15 02:37 | disposition home or self-care (01) ==
PROVIDERS: Emergency Provider Student in an Organized Health Care Education/Training Program; PCP Family Medicine
DX: K52.9 Noninfective gastroenteritis and colitis, unspecified (principal); E87.6 Hypokalemia; J45.909 Unspecified asthma, uncomplicated; D50.9 Iron deficiency anemia, unspecified; K21.9 Gastro-esophageal reflux disease without esophagitis; N80.9 Endometriosis, unspecified; F31.9 Bipolar disorder, unspecified; Z79.899 Other long term (current) drug therapy
CPT/HCPCS: 36415; 74177; 80053; 81001; 81025; 83690; 85025; 96361; 96374; 96375; 99284; A9270; J2405; J7120; Q9967

== ENCOUNTER 2025-04-08 13:54 | Outpatient (CLI) | payer BC, SELFPAY ==
--- NOTE | ~2025-04-08 | MM_ITS ---
EXAMINATION: MM screening renée BI w eriac HISTORY: Screening. TECHNIQUE: Craniocaudal and mediolateral oblique 3-D tomosynthesis images were obtained and synthetic 2-D images were generated. CAD analysis was submitted and interpreted. COMPARISON: None available. BREAST PARENCHYMAL COMPOSITION: Not Dense: The breasts are almost entirely fatty FINDINGS: No suspicious masses are seen. There are no suspicious calcifications. No unexplained architectural distortion is seen. There are no skin or nipple abnormalities identified. There is no adenopathy seen on the images submitted. IMPRESSION: No mammographic evidence to suggest malignancy is seen. The patient may return to screening mammography as per ACR guidelines. BI-RADS 1 - Negative. Reviewed, dictated and finalized at location A. 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
--- OUTSIDE RECORDS SUMMARY | 2025-04-08 15:43 | XMS_ITS | Clinical Summary ---
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 Gender Identity Not on file Sexual Orientation Not on file Last Filed Vital Signs Vital Sign Reading Time Taken Comments Blood Pressure 126/91 11/13/2024 4:22 PM CDT Pulse 91 11/13/2024 4:22 PM CDT Temperature 36.1 C (97 F) 11/13/2024 4:22 PM CDT Respiratory Rate 18 11/13/2024 4:22 PM CDT Oxygen Saturation 100% 11/13/2024 4:22 PM CDT Inhaled Oxygen Concentration - - Weight 93 kg (205 lb) 11/13/2024 4:22 PM CDT Height 160 cm (5' 3) 11/13/2024 4:22 PM CDT Body Mass Index 36.31 11/13/2024 4:22 PM CDT Plan of Treatment Health Maintenance Due Date Last Done Comments Cervical Cancer Screening Pa p Smear (Age 30 to 64) Every 3 Years 1972 Colorectal Cancer Screening Colonoscopy (10 Years) 1972 Annual Physical 08/03/1975 Hepatitis C 1990 Hepatitis B Vaccines (1 of 3 - 19+ 3-dose series) 08/03/1991 Cervical Cancer Screening Pa p with HPV Testing (Age 30 to 64) Every 5 Years 2002 Cervical Cancer Screening wi th HPV 2002 Mammogram Screening 2012 Pneumococcal Vaccine: 50+ Years (1 of 1 - PCV) 2022 Zoster Vaccines (1 of 2) 2022 COVID-19 Vaccine (4 - 2024-2 6 season) 2024 12/16/2020, 07/11/2020, 06/20/2020 Influenza Adult (#1) 2025 DTaP, Tdap and Td Vaccines ( 2 - Td or Tdap) 02/20/2032 02/19/2022 Hepatitis A Vaccines Aged Out No long er eligible based on patient's age to complete this topic Meningococcal B Vaccine Aged Out No l onger eligible based on patient's age to complete this topic Meningococcal Vaccine Aged Out No jessica mariely eligible based on patient's age to complete this topic RSV Immunizations Under 20 Months Aged Out No longer eligible b ased on patient's age to complete this topic Insurance Care Teams Green Marketing Analyst Relationship Specialty Start Date End Date Deb Tanner MD [address] [place] [address] PCP - General FAMILY PRACTICE 11/13/24
--- OUTSIDE RECORDS SUMMARY | 2025-04-08 15:43 | XMS_ITS | Encounter Summary ---
Author Organization [facility] Address [address] [place] [address] Care Team Providers Care Precinct I Police Sergeant Name Role Phone Deb Tanner MD Primary Care Provider [phone] Reason for Visit * Reason Comments Med Refill Encounter Details Date Type Department Care Team (Late st Contact Info) Description 04/04/2025 Refill [facility] Oncology and Hematology - [place] [address] [place] [address] [address] Manpreet Davis MD [address] [facility] [address] [place] [address] Anemia due to vitamin B12 deficiency, unspecified B12 deficiency type Social History Tobacco Use Types Packs/Day Years Used Date Smoking Tobacco: Never Smokeless Tobacco: Never Alcohol Use Standard Drinks/Week Comments Yes 0 (1 standard drink = 0.6 oz pur e alcohol) occasional Comments Unknown Sex and Gender Information Value Date Recorded Sex Assigned at Not on file 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
--- OUTSIDE RECORDS SUMMARY | 2025-04-08 15:43 | XMS_ITS | Clinical Summary ---
Author Organization [facility] Address [address], [facility] [address] [place] [address] Phone Care Team Providers Care User Support Analyst Name Role Phone Deb Tanner MD Primary Care Provider [phone] Hi Fry MD Unavailable [phone] Allergies Active Allergy Reactions Criticality Noted Date Comments Latex Itching,Swelling 12/05/2024 Nsaids Other (see Comments) 10/23/2024 Medications montelukast (SINGULAIR) 10 MG Tablet Take 10 mg by mouth daily. 2 Active busPIRone (BUSPAR) 10 MG Tablet Take 10 mg by mouth 3 times daily. Active pantoprazole (PROTONIX) 40 MG Tablet Delayed Response Take 40 mg by mouth 2 times daily. 2 Active FLUoxetine HCl (PROzac) 60 MG Tablet Take 60 mg by mouth daily. 1 Active cyanocobalamin (VITAMIN B-12) 1000 MCG/ML Solution 1,000 mcg by Intramuscular route every 30 days. 5 Active albuterol 108 (90 Base) MCG/ACT Aerosol Solution Active Active Problems Problem Noted Date Diagnosed Date Elevated blood pressure reading 12/05/2024 Iron deficiency anemia 12/05/2024 Encounters Date Type Department Care Team Description 03/04/2025 11:00 AM BUSINESS SYSTEMS ADMINISTRATOR Office Visit [facility] [address] [address] Hi Fry MD Other iron deficiency anemia (Primary Dx) 03/04/2025 Travel 02/26/2025 2:30 PM BUSINESS SYSTEMS ADMINISTRATOR Lab [facility] [address] [phone] Lab, [facility] Other iron deficiency anemia 02/26/2025 Travel from Last 3 Months Family History Medical History Relation Name Comments High Cholesterol Mother Hypertension Mother Relation Name Status Comments Father Alive Mother Alive Sister Alive Social History Tobacco Use Types Packs/Day Years Used Date Smoking Tobacco: Never Smokeless Tobacco: Never Tobacco Cessation:Counseling Given: Not Answered Alcohol Use Standard Drinks/Week Comments Never 0 (1 standard drink = 0.6 oz pur e alcohol) Comments Unknown Sex and Gender Information Value Date Recorded Sex Assigned at Not on file Legal Sex Female 10:59 AM BUSINESS SYSTEMS ADMINISTRATOR Gender Identity Not on file Sexual Orientation Not on file Last Filed Vital Signs Vital Sign Reading Time Taken Comments Blood Pressure 142/92 03/04/2025 11:04 AM BUSINESS SYSTEMS ADMINISTRATOR Pulse 84 03/04/2025 11:04 AM BUSINESS SYSTEMS ADMINISTRATOR Temperature 37.3 C (99.2 F) 03/04/2025 11:04 AM BUSINESS SYSTEMS ADMINISTRATOR Respiratory Rate 18 12/10/2024 12:2 5 PM CDT Oxygen Saturation 94% 03/04/2025 11: 04 AM BUSINESS SYSTEMS ADMINISTRATOR Inhaled Oxygen Concentration - - Weight 102.4 kg (225 lb 11.2 oz) 2024 11:04 AM BUSINESS SYSTEMS ADMINISTRATOR Height 160 cm (5' 3) 03/04/2025 11:04 AM BUSINESS SYSTEMS ADMINISTRATOR Body Mass Index 39.98 03/04/2025 11:04 AM BUSINESS SYSTEMS ADMINISTRATOR Plan of Treatment Upcoming Encounters Date Type Department Care Team (Late st Contact Info) Description 06/10/2025 11:15 AM BUSINESS SYSTEMS ADMINISTRATOR Lab [facility] [address] [phone] Lab, [facility] [place] 06/10/2025 11:30 AM BUSINESS SYSTEMS ADMINISTRATOR Office Visit [facility] [address] [phone] Hi Fry MD [address] [place] [phone] Health Maintenance Due Date Last Done Comments Hepatitis C Virus (HCV) Screening 1972 Mammogram 1972 Hepatitis B Immunization (1 of 3 - 19+ 3-dose series) 08/03/1991 Pap Smear 1993 Cervical Cancer Screening (CCS) 2002 HPV/Cotest 2002 Cologuard 2017 Colonoscopy 2017 Colorectal Cancer Screening 2017 Immunochemical Fecal Occult Blood 2017 Pneumococcal Immunization (5 0+ years) (1 of 1 - PCV) 2022 Zoster Immunization (1 of 2) 2022 Influenza Immunization (#1) 2024 SARS-COV-2 Immunization ( - 2024- season) 2024 12/16/2020, 07/11/2020, 06/20/2020 Respiratory Syncytial Virus (RSV) Immunization (Adult) (1 - 1-dose 75+ series) 08/03/2047 DTaP/Tdap/Td Immunization Discontinued 02/19/2022 TdaP Immunization Completed 02/19/2022 Human Papillomavirus (HPV) Immunization (No Doses Required) Completed Meningococcal Immunization (ACWY) Aged Out No longer eligible based on patient's age to complete this topic Rotavirus Immunization Aged Out No lo nger eligible based on patient's age to complete this topic Procedures Procedure Name Priority Date/Time Associated Diagnosis Comments CBC WITH AUTO DIFF OH Routine 02/26/2025 2:30 PM BUSINESS SYSTEMS ADMINISTRATOR CMP (COMPREHENSIVE METABOLIC PANEL) Routine 02/26/2025 2:30 PM BUSINESS SYSTEMS ADMINISTRATOR Other iron deficiency anemia FERRITIN Routine 02/26/2025 2:30 PM BUSINESS SYSTEMS ADMINISTRATOR Other iron deficiency anemia IRON W/ IRON BINDING CAPACITY OH Routine 02/26/2025 2:30 PM BUSINESS SYSTEMS ADMINISTRATOR Other iron deficiency anemia RETICULOCYTE COUNT (RETIC) Routine 02/26/2025 2:30 PM BUSINESS SYSTEMS ADMINISTRATOR Other iron deficiency anemia from Last 3 Months Results * IRON W/ IRON BINDING CAPACITY OH (02/26/2025 2:30 PM BUSINESS SYSTEMS ADMINISTRATOR) IRON 62 50 - 212 ug/dL CANCER TELESCOPE REPAIRER [facility] UIBC 247 155 - 355 ug/dL CANCER TELESCOPE REPAIRER OF [facility] TIBC 309 261 - 478 ug/dl CANCER TELESCOPE REPAIRER [facility] % Saturation 20 20 - 50 % [facility]CER TELESCOPE REPAIRER [facility] 02/26/2025 2:30 PM BUSINESS SYSTEMS ADMINISTRATOR Narrative [facility]CER TELESCOPE REPAIR[facility] - 02/26/2025 3:20 PM BUSINESS SYSTEMS ADMINISTRATOR Release to patient->Immediate us Hi Fry MD LAB SEND OUTS Final Resul t CANCER TELESCOPE REPAIRER [facility] [place] [address], * (ABNORMAL) CBC WITH AUTO DIFF [place] (02/26/2025 2:30 PM BUSINESS SYSTEMS ADMINISTRATOR) WBC 7.4 4.0 - 10.0 10*3/uL CANCER TELESCOPE REPAIRER [facility] HGB 14.1 11.2 - 15.7 g/dL CANCER TELESCOPE REPAIRER [facility] HCT 43.4 34.1 - 44.9 % CANCER TELESCOPE REPAIRER [facility] PLT 452(H) 163 - 369 10*3/uL CANCER TELESCOPE REPAIRER [facility] MPV 8.7(L) 9.4 - 12.4 fL CANCER TELESCOPE REPAIRER [facility] RBC 5.21 3.93 - 5.22 10*6/uL CANCER TELESCOPE REPAIRER [facility] MCV 83 79 - 95 fL CANCER TELESCOPE REPAIRER [facility] MCH 27.1 25.6 - 32.2 pg CANCER TELESCOPE REPAIRER [facility] MCHC 32.5 32.2 - 36.5 g/dL CANCER TELESCOPE REPAIRER [facility] RDW 17.4(H) 11.6 - 14.4 % CANCER TELESCOPE REPAIRER OF [facility] Neutrophils % 62.3 36.0 - 66.0 % CANCER TELESCOPE REPAIRER OF [facility] Lymphocytes % 30.9 19.0 - 40.0 % CANCER TELESCOPE REPAIRER OF [facility] Monocytes % 5.6 4.1 - 12.1 % CANCER TELESCOPE REPAIRER OF [facility] Eosinophils % 0.8 0.0 - 3.5 % CANCER TELESCOPE REPAIRER OF [facility] Basophils % 0.3 0.0 - 1.0 % CANCER TELESCOPE REPAIRER [facility] Absolute Neutrophils 4.6 1.4 - 6.6 10*3/uL [facility] Absolute Lymphocytes 2.3 0.8 - 4.0 10*3/uL CANCER TELESCOPE REPAIRER [facility] Absolute Monocytes 0.4 0.2 - 1.2 10*3/uL CANCER TELESCOPE REPAIRER [facility] Absolute Eosinophils 0.1 0.0 - 0.4 10*3/uL CANCER TELESCOPE REPAIRER [facility] Absolute Basophils 0.0 0.0 - 0.1 10*3/uL [facility] 02/26/2025 2:30 PM BUSINESS SYSTEMS ADMINISTRATOR us Hi Fry MD LAB SEND OUTS Final Resul t Performing Organization Address [facility] Co de Phone Number [facility] [place] [address], [place] [phone] * RETICULOCYTE COUNT (RETIC) (02/26/2025 2:30 PM BUSINESS SYSTEMS ADMINISTRATOR) Reticulocyte count 1.62 0.50 - 1.70 % [facility] RET-He 30.80 28.20 - 36.60 pg [facility] Comment: RET-He is a direct assessment of incorporation of iron into erythrocyte hemoglobin. It provides an indirect measure of the iron available for new erythropoiesis over past 2-4 days. Blood 02/26/2025 2:30 PM BUSINESS SYSTEMS ADMINISTRATOR Narrative [facility] - 02/26/2025 2:38 PM BUSINESS SYSTEMS ADMINISTRATOR Release to patient->Immediate us Hi Fry MD HEMATOLOGY ORDERABLES Final Result Performing Organization Address [facility] Co de Phone Number [facility] [place] [address], * FERRITIN (02/26/2025 2:30 PM BUSINESS SYSTEMS ADMINISTRATOR) Ferritin 28 11 - 307 ng/mL [facility] Blood 02/26/2025 2:30 PM BUSINESS SYSTEMS ADMINISTRATOR Narrative [facility] - 02/27/2025 3:06 PM BUSINESS SYSTEMS ADMINISTRATOR Release to patient->Immediate Hi Fry MD CHEMISTRY ORDERABLES Final Result CANCER TELESCOPE REPAIRER [facility] [place] [address], * (ABNORMAL) CMP (COMPREHENSIVE METABOLIC PANEL) (02/26/2025 2:30 PM BUSINESS SYSTEMS ADMINISTRATOR) Glucose 116(H) 70 - 105 mg/dL [facility] Blood Urea Nitrogen 14 7 - 25 mg/dL [facility] Creatinine 0.6 0.6 - 1.2 mg/dL [facility] Sodium 138 136 - 145 mEq/L [facility] Potassium 3.9 3.5 - 5.1 mEq/L [facility] Chloride 100 98 - 107 mEq/L [facility] Bicarbonate 31 21 - 31 mEq/L [facility] Total Bilirubin 0.3 0.3 - 1.0 mg/dL [facility] Alk. Phosphatase 87 34 - 104 U/L [facility] Aspartate Aminotransferase 9(L) 13 - 39 U/L [facility] Alanine Aminotransferase 10 7 - 52 U/L [facility] Total Protein 7.1 6.4 - 8.9 g/dL [facility] Albumin 4.3 3.5 - 5.7 g/dL [facility] Calcium 9.5 8.6 - 10.3 mg/dL [facility] Anion Gap 10.9 7.0 - 15.0 mEq/L [facility] Globulin 2.8 2.0 - 3.5 g/dL [facility] EGFR 108 >60 ml/min/1. 73m2 [facility] TELESCOPE REPAIRER [facility] Comment: This eGFR is calculated using 2020 CKD-EPI Creatinine equation without race modifier based on the NKF-ASN task force recommendations Equation: vFBK=160*min(SCr/k,1)a*max(SCr/k,1)-1.200*0.9938Age*1.012 (if female), where SCr is serum creatinine, k is 0.7 for females and 0.9 for males, and a is -0.241 for females and -0.302 for males Blood 02/26/2025 2:30 PM BUSINESS SYSTEMS ADMINISTRATOR Narrative CANCER TELESCOPE REPAIRER [facility] - 02/26/2025 3:20 PM BUSINESS SYSTEMS ADMINISTRATOR Release to patient->Immediate IS THE PATIENT REQUIRED TO BE FASTING FOR 8 HOURS?->No us Hi Fry MD CHEMISTRY ORDERABLES Final Result CANCER TELESCOPE REPAIRER [facility] [address] [place] [phone], from Last 3 Months Insurance [id number] [place] [address] Care Teams User Support Analyst Relationship Specialty Start Date End Date Deb Tanner MD [address] [place] [phone] PCP - General Family Medicine 12/04/24 Hi Fry MD [address] [place], [place] [phone] Consulting Physician Oncology 12/04/24
--- OUTSIDE RECORDS SUMMARY | 2025-04-08 15:43 | XMS_ITS | Data Portability ---
Author Organization [facility], Main Office Address [address] [place] [address] Care Team Providers Care Accounting Support Specialist Name Role Phone SETH CARDOZO Primary Care Provider SETH CARDOZO Referring Provider Assessment Encounter Date Assessment Date [...] for R knee pain. Thanks 2024 025 [facility], [address], [place], [address], 12:32:56 Procedures injection/ aspiration joint/burs a (PROC) 2024 025 [email or web address] 1 In-Office Order, Internal Use Only DO Not Attach Compendium DO Not Attach Compendium, Do Not Delete/merge, [address] 5 11:56:02 Surgeries None recorded. Imaging XR, knee, 3 view 2024 025 [email or web address] 1 [facility], [address], [place], [address], 5 12:10:32 Medication Orders bupivacain e HCl 0.5 % (5 mg/mL) injection solution [address] [place] [address]/Pharmacy #[id number], [address] [place], [address], 5 12:06:07 Kenalog 10 mg/mL suspension for injection [address] [place] [address]/Pharmacy #[id number], [address] [place], [address], 5 12:06:07 prednisone 10 mg tablets in a dose pack [address] [place] [address]/Pharmacy #[id number], [address] [place], [address], 5 12:06:07 Patient TargetsNo targets recorded. Patient [...] more view No observ ation record ed. [id number] [facility] [address], [place], [address], 06/16/2022 23:42:35 08/15/19 25 08/06/2024 XR, knee, 4 or more view No observ ation record ed. [email or web address] Not Available 2024 10:25:55 08/18/19 XR, knee, 3 view No observ ation record ed. [email or web address] [facility] [place] [address], [place], [address], 08/17/2024 12:04:08 Result Notes None recorded. Problems Name Problem SNOMED Code Status Onset Date Resolution Date Notes Provider Name and Address Organization Details Recorded Time Pain of knee region 8699938577 Active 2024 Marli Bella CNA [facility], [facility] 11:34:34 Osteoarthri tis of right knee joint 7403331104692 00 Active 2024 BILL [facility] [address] [facility] [address], [place], [address] [facility] 12:04:39 Problem Notes None recorded. Procedures Surgical History Date Name Laterality Status Provider Name and Address Organization Details Recorded Time Colonoscopy completed Marli Bella CNA [facility] 08/17/2024 11:33:46 Imaging Results None recorded. Procedure Notes None recorded. Medical Equipment None Reported. Allergies Allergen ID Allergen Name Allergen Category Reaction Reaction Severity Criticality Documentation Date Start Date Code Code System Note Provider Name and Address Organization Details Recorded Time 55728 albuterol sulfate medicatio n hives Not available Not available 06/16/2022 86307 3 RxNorm Not Available [facility] 23:42:19 Medications [...] 2 mL by injection route. 2024 active [facility]: 0003- 0494- 20 Not Available Not Available [...] Updated DateTime 08/17/2024 160.02 cm 36.3 kg/m2 80125.44 g ARGELIA Posey [place] [facility] 08/17/2024 11:30:23 Date Recorded Body mass index (BMI) Body height Body weight Provider Name and Address Organization Details Last Updated DateTime 12/09/2020 36.1 kg/m2 160.02 cm 15683.84 g Not Available [facility] 06/16/2022 23:37:36 Date Recorded Body height Provider Name an d Address Organization Details Last Updated DateTime 12/23/2020 160.02 cm Not Available [facility] 3 23:37:36 Date Recorded Body height Provider Name an d Address Organization Details Last Updated DateTime 01/29/2021 160.02 cm Not Available [facility] 23:37:36 Social History None recorded. Functional Status Question Answer Note LastModified by Organizat ion Details LastModified Time What is your level of alcohol consumption? None [id number] Information not available 06/16/2022 Mental Status None recorded. Family History Relationship Description Onset Age of this Age Resolved Age Notes LastModified by Organization Details LastModified Time Maternal Grandmother Family history of stroke [email or web address] Not available 2024 11:33:18 Unspecified Relation Family history of malignant neoplasm grandm other [id number] Not available 06/16/2022 23:35:49 Medical History Condition Response ULCERS Y Blood Disorder Y ANEMIA/BLOOD DISORDER Y Gynecological HistoryNo gynecological history recorded. Obstetrics History GPAL:G 0 P 0 0 0 0 Past Encounters Encounter ID Performer Location Encounter Start Date Encounter Closed Date Diagnosis/Indication Diagnosis SNOMED-CT Code Diagnosis ICD10 Code Diagnosis IMO Codes Diagnosis Note [id number] [facility]ILL [facility] [address] [place] [address] 12/09/2020 00:00:00 12/09/2020 14:29:23 [id number] BILL He[facility] [address] [place] [address] 12/23/2020 00:00:00 12/23/2020 15:21:53 [id number] [facility] [address] [place] [address] 01/29/2021 00:00:00 01/29/2021 09:35:51 [id number] Genaro Mar MD [facility] [place] [address] [facility] [address] [place] [address] 08/17/2024 11:17:17 08/17/2024 12:10:32 Pain of knee region 9516381533 M25.561 12947349 Osteoarthr itis of right knee joint 3346410072 78052 M17.11 [id number] Health Concerns Section Related Observation LastModified by Organization Detai ls LastModified Time None Recorded Concern Status LastModified by Organization Details LastModified Time None Recorded Advance Directives Directive None Recorded Payers Insurance Date Sequence Insurance Name Policy Number Policy Roman Covered Member ID Roman Member ID Guarantor Name 10/30/2024 1 [id number] ([facility]) [id number] Evelina Acevedo [id number] Evelina Acevedo Notes Date Note Type [...] today with the patient. BILL [facility] [address] [place] [facility], [facility] [address], [place], [address], [facility] Guerrilla RF 08/17/2024 12:05:35 OBGyn Episode No OBEpisode recorded.
--- OUTSIDE RECORDS SUMMARY | 2025-04-08 15:43 | XMS_ITS | Clinical Summary ---
Author Organization [facility] Address [address] [place] [address] Care Team Providers Care Licensed Direct Entry Midwife Name Role Phone Deb Tanner MD Primary Care Provider [phone] Allergies Active Allergy Reactions Criticality Noted Date Comments Albuterol Sulfate Hives High 06/25/2021 Medications pantoprazole (PROTONIX) 40 mg Tablet, Delayed Release (E.C.) 06/24/2021 Acti ve montelukast (SINGULAIR) 10 mg tablet 06/17/2021 Active busPIRone (BUSPAR) 10 mg tablet TAKE 1 TABLET BY MOUTH 3 TIMES A DAY 05/11/2021 Active FLUoxetine (PROzac) 60 mg tablet Take 60 mg by mouth daily. 04/10/2021 Active cyanocobalamin (VITAMIN B-12) 1,000 mcg/mL SolutionIndicati ons:Anemia due to vitamin B12 deficiency, unspecified B12 deficiency type INJECT 1 ML (1,000 MCG) INTO THE MUSCLE EVERY 30 DAYS. 3 mL 01/02/2025 Active Syringe with Needle, Disp, (BD SafetyGlide Syringe) 1 mL 27 x 1/2 SyringeIndicatio ns:Anemia due to vitamin B12 deficiency, unspecified B12 deficiency type USE WITH B-12 INJECTIONS. 3 Each 01/02/2025 Active Active Problems Problem Noted Date Diagnosed Date Vitamin B12 deficiency (non anemic) 08/09/2022 Reactive thrombocytosis 06/25/2021 Encounters Date Type Department Care Team Description 04/04/2025 Refill [facility] Oncology and Hematology - [place] [address] [place] [id number] Manpreet Davis MD Anemia due to vitamin B12 deficiency, unspecified B12 deficiency type 04/02/2025 External Device Data STL ABSTRACTION Provider, Abstract 03/10/2025 Refill [facility] Oncology and Hematology [facility] [address] [place] [id number] Manpreet Davis MD Anemia due to vitamin B12 deficiency, unspecified B12 deficiency type 02/19/2025 External Device Data STL ABSTRACTION Provider, Abstract 02/13/2025 External Device Data STL ABSTRACTION Provider, Abstract 02/12/2025 External Device Data STL ABSTRACTION Provider, Abstract 02/06/2025 External Device Data STL ABSTRACTION Provider, Abstract 02/05/2025 External Device Data STL ABSTRACTION Provider, Abstract 01/14/2025 Telephone [facility] Oncology [facility] [address] [place] [phone] Manpreet Davis MD labs for appt from Last 3 Months Family History Relation [...] on file 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
--- OUTSIDE RECORDS SUMMARY | 2025-04-08 15:43 | XMS_ITS | Data Portability ---
Author Organization [facility], [place] Address [address] [place] [address] [address] Care Team Providers Care Director Of Science Name Role Phone SETH CARDOZO Primary Care Provider Assessment Encounter Date Assessment Date Assessment LastModified by Organization Details LastModified Time 06/08/2021 06/08/2021 suspect perimenopausal, but discussed need to r/o hyperplasia or malignancy of endometrium will schedule US will do EMB with FU visit will start Tumri jillian for libido discussed either antidepressants or HRT for symptomatic treatment of menopause. May not have estrogen until EMB benign, and does not have hotflashes yet. encouraged to contact PCP or maybe get psych consult re irritability since already on high dose prozac. WWE scheduled next month [email or web address] Not available 06/08/2021 15:40:29 06/19/2021 06/19/2021 Discussed [...] None recorded. Imaging US, pelvis 2021 022 [facility], [address], [address], [place], [address], 15:38:58 [facility] [address], [place], [address], 16:00:11 Medication Orders None recorded. Patient TargetsNo [...] ing Locat ion: [place] [facility] Recei georgai: 06/20 0128 Patho logis t: Isabelle Mercado [...] Gross ed by Selvin Pittman Not Available [facility] (Lab) [address], [place], [address], 06/22/2021 16:26:25 06/17/19 22 06/16/2021 US, pelvi s No observ ation record ed. [email or web address], [place], [address], 06/16/2021 15:59:55 06/17/19 22 06/16/2021 US, trans vagin al No observ ation [facility]. [email or web address] [place] [address], [place], [address], 06/16/2021 16:00:11 06/17/19 22 06/16/2021 US, pelvi s No observ ation record ed. lee ann Erika [address] [place] [address], [place], [address], 06/23/2021 11:37:40 Result Notes None recorded. Problems Name Problem SNOMED Code Status Onset Date Resolution Date Notes Provider Name and Address Organization Details Recorded Time Finding of regulari ty of menstrua l cycle Completed 201706/08/2021 Irregula r bleeding ;Recorde d Elsewher e: No [facility] S ource: EHR Thread Cutter juan: N Practi ce ID: [id number] Adrian lable Time: 11:15:00 AM Briseida Lenz MD [address], [place], [address], [facility] 15:06:32 Pregnanc y test negative [id number] Completed 201706/08/2021 Encounte r for pregnanc y test, result negative ;Recorde d Elsewher e: No Locat ion: Arturo [facility] S ource: EHR Thread Cutter juan: N Practi ce ID: [id number] Adrian lable Time: 11:15:00 AM Briseida Lenz MD [address], [place], [address], [facility] [address] 15:06:[address] Concept Completed 201706/08/2021 Encntr for tip puncher exam (general ) (routine ) w/o abn findings ;Recorde d Elsewher e: No Locat ion: [facility] blue [facility] S ource: EHR Thread Cutter juan: N Practi ce ID: [id number] Adrian lable Time: 11:15:00 AM Briseida Lenz MD [address], [place], [address], [facility] 2 15:06:36 Body mass index 40+ - severely obese 209730764 Active 2021 Briseida Lenz MD [address], [place], [address], [facility] 2 15:40:19 Problem Notes None recorded. Procedures Surgical History Date Name Laterality Status Provider Name and Address Organization Details Recorded Time 06/20/19 22 Endometrial Biopsy completed Briseida Lenz MD [address], [place], [address], [facility] 06/22/2021 19:59:18 07/14/19 18 Date of Last Pap Smear completed Tashia Mckeon [facility] 06/08/2021 15:07:08 Imaging Results None recorded. Procedure Notes None recorded. Medical Equipment None Reported. Allergies Allergen ID Allergen Name Allergen Category Reaction Reaction Severity Criticality Documentation Date Start Date Code Code System Note Provider Name and Address Organization Details Recorded Time 45296 albuterol medicatio n Not available Not available Not available 06/08/2021 435 RxNorm Tashia chanel [facility] 2 15:06:07 Medications Name Sig [...] Prescrib ed Elsewher e: Yes Loca tion: [facility] odify By: tracey Davis r DateTime : 07/14/19 18 11:15:00 AM Not Available Not Available Not Available [facility] 10 mg tablet TAKE 1 TABLET BY MOUTH EVERY DAY active Not Available Not Available No t Available ranitidin e 150 mg capsule take 1 capsule by oral route 2 times every day 06/08 completed Prescrib ed Elsewher e: Yes Loca tion: [facility] odify By: tracey Davis r DateTime [...] Updated DateTime 06/08/2021 160.02 cm 42.3 kg/m2 449566.58 g 132/84 mm[Hg] [facility] 06/08/2021 15:03:03 Date Recorded Body height Body mass index (BMI) Body weight Systolic And Diastolic Provider Name and Address Organization Details Last Updated DateTime 06/19/2021 160.02 cm 41.8 kg/m2 339784.8 g 130/84 mm[Hg] [facility] 06/19/2021 14:06:28 Social History Question Answer Notes LastModified by Organizat ion Details LastModified Time Tobacco Smoking Status Never Smoker [facility] 06/08/2021 14:41:15 Have You Been To [...] ICD10 Code Diagnosis IMO Codes Diagnosis Note [id number] Briseida Lenz MD [place] [address] [address] 06/08/2021 14:24:15 06/08/2021 15:47:12 Menometrorrhagia 649064728 N92.1 Mood disorder 25058553 F 39 Reduced libido 1510051 R 68.82 Body mass index 40+ - severely obese 995334143 Z68.41 [id number] Briseida Lenz MD [place] [address] [address] 06/16/2021 14:33:50 06/16/2021 15:27:22 Menometrorrhagia 099832563 N92.1 [id number] Briseida Lenz MD [place] [address] [address] 06/19/2021 13:30:04 06/23/2021 16:29:58 Menometrorrhagia 936621637 N92.1 Cyst of left ovary 80754 34374 5460296 N83.202 Health Concerns Section Related Observation LastModified by Organization Detai ls LastModified Time None Recorded Concern Status LastModified by Organization Details LastModified Time None Recorded Advance Directives Directive None Recorded Payers Insurance Date Sequence Insurance Name Policy Number Policy Roman Covered Member ID Roman Member ID Guarantor Name 07/07/2021 1 [employer] [id number] Erika Acevedo [id number] Evelina Acevedo Notes Date Note Type Note Provider Name and Address Organization Details Recorded Time 06/08/2021 text/html Patient is a 50yo G0 who presents for menometrorrhagia. She is [...] violence:denies Briseida Lenz MD [address], [place], [address], [facility] 06/08/2021 15:40:45 06/19/2021 text/html 50yo here for follow up menometrorrhagia. US this week showed heterogeneous uterus, otherwise normal, and left ovary with a 4cm simple cyst. Also nabothian cysts. needs EMB. Briseida Lenz MD [address], [place], [address], [facility] 06/22/2021 20:00:51 OBGyn Episode No OBEpisode recorded.
== END 2025-04-08 13:55 | disposition home or self-care (01) ==
PROVIDERS: PCP Family Medicine; Visit Provider Family Medicine
DX: Z12.31 Encounter for screening mammogram for malignant neoplasm of breast (principal)
CPT/HCPCS: 77063; 77067